=== PATIENT | female | born 1960 | race Caucasian/White ===

== ENCOUNTER → 2020-08-15 07:33 | Outpatient (CLI) | payer OTHER, SELFPAY ==
[2020-08-15] MEDS: COVID-19 VACC #1, MRNA(MOD) 100 MCG/0.5 ML VIAL IM (07:42)
== END ==
PROVIDERS: Visit Provider Internal Medicine
DX: Z23 Encounter for immunization (principal)
CPT/HCPCS: 0011A; 91301

== ENCOUNTER → 2020-09-12 07:32 | Outpatient (CLI) | payer OTHER, SELFPAY ==
[2020-09-12] MEDS: COVID-19 VACC #2, MRNA(MOD) 100 MCG/0.5 ML VIAL IM (07:40)
== END ==
PROVIDERS: Visit Provider Internal Medicine
DX: Z23 Encounter for immunization (principal)
CPT/HCPCS: 0012A; 91301

== ENCOUNTER → 2021-01-02 14:30 | Outpatient (CLI) | payer OTHER, SELFPAY ==
--- NOTE | 2021-01-02 14:32 | DI.RAD.S_ITS ---
PROCEDURE: XR SHOULDER RT MIN 2V INDICATIONS: shoulder pain TECHNIQUE: 3 views of the shoulder were acquired. COMPARISON: None. FINDINGS: Bones: No fractures or dislocations. Moderate acromioclavicular joint and glenohumeral joint osteoarthritic changes are seen. No suspicious bony lesions. Visualized ribs appear intact. Soft tissues: No suspicious soft tissue calcifications. IMPRESSION: Moderate right shoulder joint osteoarthritis. No fracture or dislocation. No gross soft tissue abnormality. Dictated by: Wally Simons M.D. on 01/02/2021 at 15:53 Approved by: Wally Simons M.D. on 01/02/2021 at 15:54
== END ==
PROVIDERS: PCP Registered Nurse; Referring Provider Registered Nurse; Visit Provider Registered Nurse
DX: M25.511 Pain in right shoulder (principal); M19.011 Primary osteoarthritis, right shoulder
CPT/HCPCS: 73030

== ENCOUNTER → 2021-01-22 13:23 | Outpatient (CLI) | payer OTHER, SELFPAY ==
--- NOTE | 2021-01-22 13:25 | DI.MG.S_ITS ---
BILATERAL DIGITAL SCREENING MAMMOGRAM 3D/2D WITH CAD: 01/22/2021 CLINICAL: Routine screening. Comparison is made to exams dated: 06/17/2017 mammogram, 04/18/2019 mammogram, and 07/15/2016 mammogram - outside facility. The tissue of both breasts is heterogeneously dense. This may lower the sensitivity of mammography. Current study was also evaluated with a Computer Aided Detection (CAD) system. No significant masses, calcifications, or other findings are seen in either breast. There has been no significant interval change. IMPRESSION: NEGATIVE There is no mammographic evidence of malignancy. A 1 year screening mammogram is recommended. This exam was interpreted at Station ID: [id number]. NOTE: For mammograms, a report in lay terms will be sent to the patient. Approximately 15% of breast malignancies will not be visualized mammographically. In the management of a palpable breast mass, a negative mammogram must not discourage biopsy of a clinically suspicious lesion. Electronically Signed By: Brad don/pat:01/22/2021 14:12:13 letter sent: Normal Exam ACR BI-RADS Category 1: Negative 3341F
== END ==
PROVIDERS: PCP Registered Nurse; Referring Provider Registered Nurse; Visit Provider Registered Nurse
DX: Z12.31 Encounter for screening mammogram for malignant neoplasm of breast (principal)
CPT/HCPCS: 77063; 77067

== ENCOUNTER → 2021-02-10 08:23 | Outpatient (CLI) | payer OTHER, SELFPAY ==
[2021-02-10 09:14] LABS: COVID19 -Nasal RAPID Negative (Negative)
== END ==
PROVIDERS: PCP Registered Nurse; Visit Provider Physician Assistant
DX: Z20.822 Contact with and (suspected) exposure to COVID-19 (principal); R05 Cough; R09.81 Nasal congestion; R51.9 Headache, unspecified
CPT/HCPCS: 87635

== ENCOUNTER → 2021-04-17 07:58 | Outpatient (CLI) | payer OTHER, SELFPAY ==
[2021-04-17 08:37] LABS: Add Manual Diff / Slide Review NO; Basophils Absolute Auto 0 /uL (0-100); Basophils Percent Auto 0.7 % (0-2); Eosinophils Absolute Auto 100 /uL (0-450); Eosinophils Percent Auto 1.3 % (2-4); Hematocrit 42.2 % (36-46); Hemoglobin 14.2 g/dL (12.0-16.0); Lymphocytes Absolute Auto 1200 /uL (1100-4500); Lymphocytes Percent Auto 24.4 % (25-40); Mean Corpuscular HGB Conc 33.6 % (30-36); Mean Corpuscular Hemoglobin 30.1 PG (26-34); Mean Corpuscular Volume 89.5 fL (80-100); Monocytes Absolute Auto 400 /uL (0-900); Monocytes Percent Auto 7.4 % (3-14); Neutrophils Absolute Auto 3200 /uL (1500-7000); Neutrophils Percent Auto 66.2 % (50-75); Platelet Count 260 X10^3/uL (150-400); Red Blood Cell Count 4.72 X10^6/uL (4.0-5.2); Red Cell Distribution Width 12.8 % (11.6-14.8); White Blood Cell Count 4.9 X10^3/uL (4.5-11.0)
[2021-04-17 08:52] LABS: Alanine Aminotransferase 25 IU/L (<35); Albumin 4.5 g/dL (3.5-5.0); Albumin Globulin Ratio 1.7 (1.0-2.8); Alkaline Phosphatase 50 U/L (38-126); Aspartate Aminotransferase 28 IU/L (14-36); BUN Creatinine Ratio 18.3 (6-22); Bilirubin Total 0.6 mg/dL (0.2-1.3); Blood Urea Nitrogen 15 mg/dL (7-17); Calcium 9.8 mg/dL (8.4-10.2); Carbon Dioxide 32 mmol/L (22-32); Chloride 106 mmol/L (98-107); Cholesterol 193 mg/dL (140-199); Estimated Glomerular Filt Rate > 60.0 mL/min (>60); Globulin 2.7 g/dL (1.7-4.1); Glucose 96 mg/dL (80-110); HDL Cholesterol 68 mg/dL (40-60); HEMOLYSIS < 15 (0-50); LDL Cholesterol Calculated 115 mg/dL (<100); Potassium 4.8 mmol/L (3.4-5.1); Sodium 142 mmol/L (137-145); Total Protein 7.2 g/dL (6.3-8.2); Triglycerides 49 mg/dL (35-150)
[2021-04-17 09:52] LABS: TSH w/ Reflex to FT4 1.71 uIU/mL (0.47-4.68)
== END ==
PROVIDERS: PCP Registered Nurse; Referring Provider Registered Nurse; Visit Provider Registered Nurse
DX: Z00.00 Encounter for general adult medical examination without abnormal findings (principal); Z86.018 Personal history of other benign neoplasm; M25.519 Pain in unspecified shoulder
CPT/HCPCS: 36415; 80053; 80061; 84443; 85025

== ENCOUNTER → 2022-09-28 14:18 | Outpatient (CLI) | payer OTHER, SELFPAY ==
--- NOTE | 2022-09-28 14:19 | DI.MG.S_ITS ---
BILATERAL DIGITAL SCREENING MAMMOGRAM 3D/2D WITH CAD: 09/28/2022 CLINICAL: Routine screening. Comparison is made to exams dated: 01/22/2021 mammogram - [facility], 04/18/2019 mammogram, and 06/17/2017 mammogram - outside facility. Both breasts are heterogeneously dense, which may obscure small masses (category c / 51-75% glandular tissue). Current study was also evaluated with a Computer Aided Detection (CAD) system. No significant masses, calcifications, or other findings are seen in either breast. There has been no significant interval change. IMPRESSION: NEGATIVE There is no mammographic evidence of malignancy. A 1 year screening mammogram is recommended. Based on the Tyrer Cuzick model (a risk assessment model) the patient's lifetime risk is 9.2% and her 10 year risk is 4.1%. According to the ACR, ACS, and NCCN guidelines, an annual breast MRI exam along with mammogram is recommended if the patient's lifetime risk is 20% or greater. This exam was interpreted at Station ID: [id number]. NOTE: For mammograms, a report in lay terms will be sent to the patient. Approximately 15% of breast malignancies will not be visualized mammographically. In the management of a palpable breast mass, a negative mammogram must not discourage biopsy of a clinically suspicious lesion. Electronically Signed By: Katlin salcido/pat:09/28/2022 16:52:50 letter sent: Normal Exam ACR BI-RADS Category 1: Negative 3341F
== END ==
PROVIDERS: PCP Family Medicine; Referring Provider Family Medicine; Visit Provider Family Medicine
DX: Z12.31 Encounter for screening mammogram for malignant neoplasm of breast (principal)
CPT/HCPCS: 77063; 77067

== ENCOUNTER → 2022-12-23 13:19 | Outpatient (CLI) | payer OTHER, SELFPAY ==
[2022-12-23 14:23] LABS: Add Manual Diff / Slide Review NO; Basophils Absolute Auto 0 /uL (0-100); Basophils Percent Auto 0.4 % (0-2); Eosinophils Absolute Auto 0 /uL (0-450); Eosinophils Percent Auto 0.5 % (2-4); Hematocrit 41.7 % (36-46); Hemoglobin 14.2 g/dL (12.0-16.0); Lymphocytes Absolute Auto 1400 /uL (1100-4500); Lymphocytes Percent Auto 22.3 % (25-40); Mean Corpuscular Hemoglobin 30.3 PG (26-34); Mean Corpuscular Volume 88.9 fL (80-100); Monocytes Absolute Auto 400 /uL (0-900); Monocytes Percent Auto 6.9 % (3-14); Neutrophils Absolute Auto 4400 /uL (1500-7000); Neutrophils Percent Auto 69.9 % (50-75); Platelet Count 219 X10^3/uL (150-400); Red Blood Cell Count 4.69 X10^6/uL (4.0-5.2); White Blood Cell Count 6.3 X10^3/uL (4.5-11.0)
[2022-12-23 14:45] LABS: Alanine Aminotransferase 28 IU/L (<35); Albumin 4.3 g/dL (3.5-5.0); Albumin Globulin Ratio 1.4 (1.0-2.8); Alkaline Phosphatase 51 U/L (38-126); Aspartate Aminotransferase 35 IU/L (14-36); BUN Creatinine Ratio 19.7 (6-22); Blood Urea Nitrogen 13 mg/dL (7-17); Calcium 9.1 mg/dL (8.4-10.2); Carbon Dioxide 25 mmol/L (22-32); Chloride 102 mmol/L (98-107); Cholesterol 195 mg/dL (140-199); Estimated Glomerular Filt Rate > 60 mL/min (>60); Globulin 3.1 g/dL (1.7-4.1); Glucose 76 mg/dL (80-110); HDL Cholesterol 71 mg/dL (40-60); LDL Cholesterol Calculated 115 mg/dL (<100); Potassium 3.9 mmol/L (3.4-5.1); Sodium 135 mmol/L (137-145); Total Protein 7.4 g/dL (6.3-8.2); Triglycerides 46 mg/dL (35-150)
[2022-12-23 14:50] LABS: HEMOLYSIS 56 (0-50)
[2022-12-23 15:15] LABS: TSH w/ Reflex to FT4 1.11 uIU/mL (0.47-4.68)
== END ==
PROVIDERS: PCP Family Medicine; Referring Provider Family Medicine; Visit Provider Family Medicine
DX: E78.2 Mixed hyperlipidemia (principal); G89.29 Other chronic pain; M25.511 Pain in right shoulder; R03.0 Elevated blood-pressure reading, without diagnosis of hypertension
CPT/HCPCS: 36415; 80053; 80061; 84443; 85025

== ENCOUNTER 2023-04-20 08:15 | Outpatient (RCR) | payer OTHER, SELFPAY ==
--- NOTE | 2023-01-19 13:57 | PT.OIE ---
Current Diagnoses Other chronic pain (01/19/23) Pain in right shoulder (01/19/23) Past Medical History (Last Reviewed 02/10/21 @ 10:02 by Amalia Mccoy PA-C) Adult general medical exam Cervical cancer screening Fibroids Screening for breast cancer Shoulder pain Past Surgical History (Last Reviewed 02/10/21 @ 10:02 by Amalia Mccoy PA-C) Anesthesia History of myomectomy Visit Care Team Role Provider Type Sumanth Ryan MD Attending Provider Physician Family Provider Primary Care Provider Referring Provider Specialty: Family Practice Address: [address] [place] [address] Email: [email or web address] Physical Therapy Initial Evaluation PT-OP-A Visit Information Start: 01/19/23 10:48 Freq: Status: Active Protocol: Document 01/19/23 10:53 AB (Rec: 01/19/23 13:56 AB [id number]) Out-Patient Physical Therapy Visit Information Visit Information Visit Type Initial Evaluation Visit Start Time 11:00 Visit Stop Time 11:55 Total Visit Minutes 55 Visit Number 1 Number of VENDING MACHINE REPAIRER Visits 0 Evaluation Information Evaluation Date 01/19/23 PT-OP-B Current Condition Start: 01/19/23 10:48 Freq: Status: Active Protocol: Document 01/19/23 10:53 AB (Rec: 01/19/23 13:56 AB [id number]) Current Condition History of Current Condition Onset Date 2020 History of Current Condition The pt reports that in 2020 she had an accident off a ski lift which cause her to fall directly onto her shoulder. Since then she has had mobility deficits and pain, which is constant (4-5/10), but her pain increases with reaching up and behind her back (8/10). She was unable to seek treatment consistently due to personal reasons. She is currently seeking a second opinion and different approach to what her chiropractor took to see if she can make greater gains and relief. The pt also comments she has left lateral elbow pain/tenderness when she puts lotion on that arm and when she is doing things like weeding Prior Treatments and Tests Sports chiropractor for 6 months- some improvement noted Xray in 2020 revealed mod OA in right shoulder Treatment Goals Patient/Caregiver Goals To return to her active lifestyle including yoga and skiing. Current Functional Impairments (Reported) Functional Limitations- Work/School Retired Functional Limitations- Recreation/ Unable to participate in Hobbies recreational activities due to pain PT-OP-C Subjective Start: 01/19/23 10:48 Freq: Status: Active Protocol: Document 01/19/23 10:53 AB (Rec: 01/19/23 13:56 AB [id number]) OP-PT Subjective Patient Comments Patient Comments See hx of current condition Patient Questionnaires Quick Dash- Upper Extremity Quick Dash UE Score 22.72% Quick Dash UE Impairment 20 to 39% Impaired (Score 20- 39) PT-OP-K Range of Motion Start: 01/19/23 10:48 Freq: Status: Active Protocol: Document 01/19/23 10:53 AB (Rec: 01/19/23 13:56 AB [id number]) Shoulder Goniometric Range of Motion Shoulder Right Active Testing Position Sitting Flexion 105 Abduction 94 External Rotation at 0 degrees Abduction 30 Internal Rotation Behind Back (text) L4 Comments Functional ER C6 Pain with all motions Left Active Shoulder ROM WFL Yes Testing Position Sitting Flexion 149 Abduction 149 External Rotation at 0 degrees Abduction 55 Internal Rotation Behind Back (text) T10 Comments Functional ER: T3 PT-OP-M Strength Start: 01/19/23 10:48 Freq: Status: Active Protocol: Document 01/19/23 10:53 AB (Rec: 01/19/23 13:56 AB [id number]) Shoulder Strength Shoulder Manual Muscle Testing Right Flexion 5 Normal Extension 5 Normal Abduction (C5) 4+ Good+ External Rotation 4 Good Internal Rotation 4 Good Comments 8/10 pain with flexion Left Flexion 5 Normal Extension 5 Normal Abduction (C5) 4+ Good+ External Rotation 4 Good Internal Rotation 4 Good Elbow/Forearm Strength Elbow and Forearm Manual Muscle Testing Right Flexion (C6) 5 Normal Extension (C7) 5 Normal Left Flexion (C6) 5 Normal Extension (C7) 5 Normal Pronation 5 Normal Supination 5 Normal Comments Denies pain PT-OP-Q Treatments Start: 01/19/23 10:48 Freq: Status: Active Protocol: Document 01/19/23 10:53 AB (Rec: 01/19/23 13:56 AB [id number]) Therapeutic Exercises Sitting Exercises Shldr flex AAROM Side bilateral Equipment Used green uzbek ball Reps/Minutes 2x10 sec hold Standing Exercises IR strap stretch Side right Reps/Minutes 2x10 sec hold Shldr ER AAROM Side right Equipment Used dowel Reps/Minutes [id number] hold Shldr ABD AAROM Side right Equipment Used uzbek ball, low table Reps/Minutes 2x10 sec hold PT-OP-T Assessment and Plan Start: 01/19/23 10:48 Freq: Status: Active Protocol: Document 01/19/23 10:53 AB (Rec: 01/19/23 13:56 AB [id number]) Physical Therapy Assessment Rehab Potential Rehabilitation Potential Good Evaluation Complexity Number of Personal Factors/Comorbidities 1-2 Number of Body Systems Impaired 1-2 Clinical Presentation at Evaluation Stable Impairments Impairments Functional Activities, Functional Mobility,Pain,ROM, Soft Tissue Mobility,Strength Goals Seven Impairment Patient questionnaire Short Term Goal (STG) Pt's QuickDASH score to improve to 12% or better to show improving subjective report of symptoms for an improved QOL. STG Duration 4 Custodial Goal (LTG) Pt's QuickDASH score to improve to 2% or better to show improving subjective report of symptoms for an improved QOL. LTG Duration 8 Six Impairment Strength Short Term Goal (STG) Pt's gross UE MMT to improve to 4+/5 or better to show improving strength to improve ability to perform ADLs and IADLs. STG Duration 4 Mannequin Refinisher Goal (LTG) Pt's gross UE MMT to improve to 5/5 or better to show improving strength to improve ability to perform functional activities and begin return to recreational activities. LTG Duration 8 Five Impairment Right shoulder AROM deficits Short Term Goal (STG) Pt's right shoulder functional IR AROM to improve to L1 or better to show improving ROM to increase ability to perform ADLs and IADLs. STG Duration 4 Mannequin Refinisher Goal (LTG) Pt's right shoulder functional IR AROM to improve to T10 or better to show improving ROM to increase ability to perform ADLs and IADLs. LTG Duration 8 Four Impairment Right shoulder AROM deficits Short Term Goal (STG) Pt's right shoulder functional ER AROM to improve to T1 or better to show improving ROM to increase ability to perform ADLs and IADLs. STG Duration 4 Mannequin Refinisher Goal (LTG) Pt's right shoulder functional ER AROM to improve to T3 or better to show improving ROM to increase ability to perform ADLs and IADLs. LTG Duration 8 Three Impairment Right shoulder AROM deficits Short Term Goal (STG) Pt's right shoulder ER AROM to improve to 40 degrees or better to show improving ROM to increase ability to perform ADLs and IADLs. STG Duration 4 Custodial Goal (LTG) Pt's right shoulder ER AROM to improve to 50 degrees or better to show improving ROM to increase ability to perform ADLs and IADLs. LTG Duration 8 Two Impairment Right shoulder AROM deficits Short Term Goal (STG) Pt's right shoulder ABD AROM to improve to 120 degrees or better to show improving ROM to increase ability to perform ADLs and IADLs. STG Duration 4 Mannequin Refinisher Goal (LTG) Pt's right shoulder ABD AROM to improve to 150 degrees or better to show improving ROM to increase ability to perform ADLs and IADLs. LTG Duration 8 One Impairment Right shoulder AROM deficits Short Term Goal (STG) Pt's right shoulder flexion AROM to improve to 120 degrees or better to show improving ROM to increase ability to perform ADLs and IADLs. STG Duration 4 Custodial Goal (LTG) Pt's right shoulder flexion AROM to improve to 150 degrees or better to show improving ROM to increase ability to perform ADLs and IADLs. LTG Duration 8 Assessment Summary Assessment Vandana iLnd is a 62 year old female patient presenting to outpatient PT clinic with complaints of chronic right shoulder pain, which began in 2020 after a ski lift fall. Today's PT evaluation revealed significant right shoulder AROM deficits, but mild strength deficits. Pain was reproduced with AROM testing, but not with MMT. ROM improved with PROM, but continues to be painful. Based on these findings, the pt would benefit from a trial of skilled PT to improve her deficits in order to help her return to her PLOF. If there is no improvement in her symptoms, the pt may benefit from a referral to an orthopedic surgeon. Her rehab potential is good based on her her active lifestyle, age, and motivation to participate in therapy. Physical Therapy Plan Frequency and Duration Frequency of Treatment 2x/Week Duration of treatment (weeks) 8 Plan of Care Start Date 01/19/23 Plan of Care End Date 03/16/23 Therapeutic Interventions Therapeutic Interventions Home Exercise Program,Joint Mobilizations,Manual Therapy, Neuromuscular Re-education, Patient/Caregiver Education, Self-Care/Home Management,Soft Tissue Mobilization,Taping, Therapeutic Activities, Therapeutic Exercises Modalities Cold Pack/Ice Massage,Electric Stimulation,Hot Packs Next Visit Focus/Plan Next Note Type Treatment Note Next Visit Plan Review HEP. Add RUE mobility exercises, low level periscpaular strengthening exercises.
--- NOTE | 2023-01-19 13:57 | PT.OPPOC ---
Physical, Occupational & Speech Therapy At [facility] Current Diagnoses Other chronic pain (01/19/23) Pain in right shoulder (01/19/23) Visit Care Team Role Provider Type Sumanth Ryan MD Attending Provider Physician Family Provider Primary Care Provider Referring Provider Specialty: Family Practice Address: [address] [place] [address] Email: [email or web address] Plan Of Care PT-OP-T Assessment and Plan Start: 01/19/23 10:48 Freq: Status: Active Protocol: Document 01/19/23 10:53 AB (Rec: 01/19/23 13:56 AB [id number]) Physical Therapy Assessment Rehab Potential Rehabilitation Potential Good Evaluation Complexity Number of Personal Factors/Comorbidities 1-2 Number of Body Systems Impaired 1-2 Clinical Presentation at Evaluation Stable Impairments Impairments Functional Activities, Functional Mobility,Pain,ROM, Soft Tissue Mobility,Strength Goals Seven Impairment Patient questionnaire Short Term Goal (STG) Pt's QuickDASH score to improve to 12% or better to show improving subjective report of symptoms for an improved QOL. STG Duration 4 Public Health Director Goal (LTG) Pt's QuickDASH score to improve to 2% or better to show improving subjective report of symptoms for an improved QOL. LTG Duration 8 Six Impairment Strength Short Term Goal (STG) Pt's gross UE MMT to improve to 4+/5 or better to show improving strength to improve ability to perform ADLs and IADLs. STG Duration 4 [facility] Goal (LTG) Pt's gross UE MMT to improve to 5/5 or better to show improving strength to improve ability to perform functional activities and begin return to recreational activities. LTG Duration 8 Five Impairment Right shoulder AROM deficits Short Term Goal (STG) Pt's right shoulder functional IR AROM to improve to L1 or better to show improving ROM to increase ability to perform ADLs and IADLs. STG Duration 4 Public Health Director Goal (LTG) Pt's right shoulder functional IR AROM to improve to T10 or better to show improving ROM to increase ability to perform ADLs and IADLs. LTG Duration 8 Four Impairment Right shoulder AROM deficits Short Term Goal (STG) Pt's right shoulder functional ER AROM to improve to T1 or better to show improving ROM to increase ability to perform ADLs and IADLs. STG Duration 4 [facility] Goal (LTG) Pt's right shoulder functional ER AROM to improve to T3 or better to show improving ROM to increase ability to perform ADLs and IADLs. LTG Duration 8 Three Impairment Right shoulder AROM deficits Short Term Goal (STG) Pt's right shoulder ER AROM to improve to 40 degrees or better to show improving ROM to increase ability to perform ADLs and IADLs. STG Duration 4 Public Health Director Goal (LTG) Pt's right shoulder ER AROM to improve to 50 degrees or better to show improving ROM to increase ability to perform ADLs and IADLs. LTG Duration 8 Two Impairment Right shoulder AROM deficits Short Term Goal (STG) Pt's right shoulder ABD AROM to improve to 120 degrees or better to show improving ROM to increase ability to perform ADLs and IADLs. STG Duration 4 [facility] Goal (LTG) Pt's right shoulder ABD AROM to improve to 150 degrees or better to show improving ROM to increase ability to perform ADLs and IADLs. LTG Duration 8 One Impairment Right shoulder AROM deficits Short Term Goal (STG) Pt's right shoulder flexion AROM to improve to 120 degrees or better to show improving ROM to increase ability to perform ADLs and IADLs. STG Duration 4 [facility] Goal (LTG) Pt's right shoulder flexion AROM to improve to 150 degrees or better to show improving ROM to increase ability to perform ADLs and IADLs. LTG Duration 8 Assessment Summary Assessment Vandana Lind is a 62 year old female patient presenting to outpatient PT clinic with complaints of chronic right shoulder pain, which began in 2020 after a ski lift fall. Today's PT evaluation revealed significant right shoulder AROM deficits, but mild strength deficits. Pain was reproduced with AROM testing, but not with MMT. ROM improved with PROM, but continues to be painful. Based on these findings, the pt would benefit from a trial of skilled PT to improve her deficits in order to help her return to her PLOF. If there is no improvement in her symptoms, the pt may benefit from a referral to an orthopedic surgeon. Her rehab potential is good based on her her active lifestyle, age, and motivation to participate in therapy. Physical Therapy Plan Frequency and Duration Frequency of Treatment 2x/Week Duration of treatment (weeks) 8 Plan of Care Start Date 01/19/23 Plan of Care End Date 03/16/23 Therapeutic Interventions Therapeutic Interventions Home Exercise Program,Joint Mobilizations,Manual Therapy, Neuromuscular Re-education, Patient/Caregiver Education, Self-Care/Home Management,Soft Tissue Mobilization,Taping, Therapeutic Activities, Therapeutic Exercises Modalities Cold Pack/Ice Massage,Electric Stimulation,Hot Packs Next Visit Focus/Plan Next Note Type Treatment Note Next Visit Plan Review HEP. Add RUE mobility exercises, low level periscpaular strengthening exercises. Plan of Care Dates Plan of Care Start Date 01/19/23 Plan of Care End Date 03/16/23 Electronically Signed by: Raji Garcia, PT 01/19/23 [id number] If you are in agreement with this Plan of Care, please return a signed and dated copy. I have reviewed this Plan of Care and certify that the skilled therapy services above are required to meet the patient?s needs. Physician Signature Date Printed Name and Credentials Clinical Instructor Signature Printed Name and Credentials
--- NOTE | 2023-01-24 11:42 | PT.OTN ---
Current Diagnoses Other chronic pain (01/24/23) Pain in right shoulder (01/24/23) Physical Therapy Treatment Note PT-OP-A Visit Information Start: 01/19/23 10:48 Freq: Status: Active Protocol: Document 01/24/23 10:04 AB (Rec: 01/24/23 11:41 AB [id number]) Out-Patient Physical Therapy Visit Information Visit Information Visit Type Treatment Note Visit Start Time 10:00 Visit Stop Time 10:45 Total Visit Minutes 45 Visit Number 2 Number of PROJECT MGR Visits 0 PT-OP-B Current Condition Start: 01/19/23 10:48 Freq: Status: Active Protocol: Document 01/19/23 10:53 AB (Rec: 01/19/23 13:56 AB [id number]) Current Condition History of Current Condition Onset Date 2020 History of Current Condition The pt reports that in 2020 she had an accident off a ski lift which cause her to fall directly onto her shoulder. Since then she has had mobility deficits and pain, which is constant (4-5/10), but her pain increases with reaching up and behind her back (8/10). She was unable to seek treatment consistently due to personal reasons. She is currently seeking a second opinion and different approach to what her chiropractor took to see if she can make greater gains and relief. The pt also comments she has left lateral elbow pain/tenderness when she puts lotion on that arm and when she is doing things like weeding Prior Treatments and Tests Sports chiropractor for 6 months- some improvement noted Xray in 2020 revealed mod OA in right shoulder Treatment Goals Patient/Caregiver Goals To return to her active lifestyle including yoga and skiing. Current Functional Impairments (Reported) Functional Limitations- Work/School Retired Functional Limitations- Recreation/ Unable to participate in Hobbies recreational activities due to pain PT-OP-C Subjective Start: 01/19/23 10:48 Freq: Status: Active Protocol: Document 01/24/23 10:04 AB (Rec: 01/24/23 11:41 AB [id number]) OP-PT Subjective Patient Comments Patient Comments The pt reports no significant change in her symptoms, and she has been doing her HEP without problems. PT-OP-K Range of Motion Start: 01/19/23 10:48 Freq: Status: Active Protocol: Document 01/19/23 10:53 AB (Rec: 01/19/23 13:56 AB [id number]) Shoulder Goniometric Range of Motion Shoulder Right Active Testing Position Sitting Flexion 105 Abduction 94 External Rotation at 0 degrees Abduction 30 Internal Rotation Behind Back (text) L4 Comments Functional ER C6 Pain with all motions Left Active Shoulder ROM WFL Yes Testing Position Sitting Flexion 149 Abduction 149 External Rotation at 0 degrees Abduction 55 Internal Rotation Behind Back (text) T10 Comments Functional ER: T3 PT-OP-M Strength Start: 01/19/23 10:48 Freq: Status: Active Protocol: Document 01/19/23 10:53 AB (Rec: 01/19/23 13:56 AB [id number]) Shoulder Strength Shoulder Manual Muscle Testing Right Flexion 5 Normal Extension 5 Normal Abduction (C5) 4+ Good+ External Rotation 4 Good Internal Rotation 4 Good Comments 8/10 pain with flexion Left Flexion 5 Normal Extension 5 Normal Abduction (C5) 4+ Good+ External Rotation 4 Good Internal Rotation 4 Good Elbow/Forearm Strength Elbow and Forearm Manual Muscle Testing Right Flexion (C6) 5 Normal Extension (C7) 5 Normal Left Flexion (C6) 5 Normal Extension (C7) 5 Normal Pronation 5 Normal Supination 5 Normal Comments Denies pain PT-OP-Q Treatments Start: 01/19/23 10:48 Freq: Status: Active Protocol: Document 01/24/23 10:04 AB (Rec: 01/24/23 11:41 AB [id number]) Cardio Equipment Upper Body Ergometer (UBE) Duration (Minutes) 5 Height lowest height Other 2.5 min fwd, 2.5 min bwd Gym Equipment Cable Column (Body Solid) Cable Rows Details seated cable rows (to mimic rowing machine) Resistance 2 plates Reps/Time 2x10 Therapeutic Exercises Sitting Exercises Pulleys Sitting Exercise Name Shoulder flex and ABD AAROM Side right Equipment Used Pulleys Reps/Minutes x 2 min ea Shldr flex AAROM Side bilateral Equipment Used green japanese ball Reps/Minutes 10x10 sec hold Standing Exercises Pendulums Standing Exercise Name lateral, fwd/bwd, CW/CCW Side right Equipment Used 3# DB (to provide more distraction) Reps/Minutes x1 min ea TB shldr ER and IR Standing Exercise Name TB ER and IR walkouts at 0D of ABD Side right Resistance peach TB Reps/Minutes 1x10 ea IR strap stretch Side right Reps/Minutes 10x10 sec hold Shldr ER AAROM Side right Equipment Used dowel Reps/Minutes [id number] hold Shldr ABD AAROM Side right Equipment Used japanese ball and low table; dowel Reps/Minutes 2x10 with 10 sec hold ea Comments 1st set with ball, 2nd set with dowel PT-OP-T Assessment and Plan Start: 01/19/23 10:48 Freq: Status: Active Protocol: Document 01/24/23 10:04 AB (Rec: 01/24/23 11:41 AB [id number]) Physical Therapy Assessment Goals Seven Impairment Patient questionnaire Short Term Goal (STG) Pt's QuickDASH score to improve to 12% or better to show improving subjective report of symptoms for an improved QOL. STG Duration 4 Crm Coordinator Goal (LTG) Pt's QuickDASH score to improve to 2% or better to show improving subjective report of symptoms for an improved QOL. LTG Duration 8 Six Impairment Strength Short Term Goal (STG) Pt's gross UE MMT to improve to 4+/5 or better to show improving strength to improve ability to perform ADLs and IADLs. STG Duration 4 Crm Coordinator Goal (LTG) Pt's gross UE MMT to improve to 5/5 or better to show improving strength to improve ability to perform functional activities and begin return to recreational activities. LTG Duration 8 Five Impairment Right shoulder AROM deficits Short Term Goal (STG) Pt's right shoulder functional IR AROM to improve to L1 or better to show improving ROM to increase ability to perform ADLs and IADLs. STG Duration 4 Senior Living Goal (LTG) Pt's right shoulder functional IR AROM to improve to T10 or better to show improving ROM to increase ability to perform ADLs and IADLs. LTG Duration 8 Four Impairment Right shoulder AROM deficits Short Term Goal (STG) Pt's right shoulder functional ER AROM to improve to T1 or better to show improving ROM to increase ability to perform ADLs and IADLs. STG Duration 4 Senior Living Goal (LTG) Pt's right shoulder functional ER AROM to improve to T3 or better to show improving ROM to increase ability to perform ADLs and IADLs. LTG Duration 8 Three Impairment Right shoulder AROM deficits Short Term Goal (STG) Pt's right shoulder ER AROM to improve to 40 degrees or better to show improving ROM to increase ability to perform ADLs and IADLs. STG Duration 4 Crm Coordinator Goal (LTG) Pt's right shoulder ER AROM to improve to 50 degrees or better to show improving ROM to increase ability to perform ADLs and IADLs. LTG Duration 8 Two Impairment Right shoulder AROM deficits Short Term Goal (STG) Pt's right shoulder ABD AROM to improve to 120 degrees or better to show improving ROM to increase ability to perform ADLs and IADLs. STG Duration 4 Crm Coordinator Goal (LTG) Pt's right shoulder ABD AROM to improve to 150 degrees or better to show improving ROM to increase ability to perform ADLs and IADLs. LTG Duration 8 One Impairment Right shoulder AROM deficits Short Term Goal (STG) Pt's right shoulder flexion AROM to improve to 120 degrees or better to show improving ROM to increase ability to perform ADLs and IADLs. STG Duration 4 Crm Coordinator Goal (LTG) Pt's right shoulder flexion AROM to improve to 150 degrees or better to show improving ROM to increase ability to perform ADLs and IADLs. LTG Duration 8 Assessment Summary Assessment The pt demonstrated good recall of HEP, as she was able to perform with good form. Due to the pt not feeling much of a stretch when performing shoulder ABD AAROM with japanese ball, this exercise was switched to be performed with a dowel instead. Additional UE mobility and low level RTC and periscapular strengthening was added, with focus on engaging the correct muscles to avoid UT compensation. Pendulums were also added to help improve pain symptoms. The pt may benefit from the addition of manual therapy PROM and joint mobilizations to improve ROM next visit. Physical Therapy Plan Frequency and Duration Frequency of Treatment 2x/Week Duration of treatment (weeks) 8 Plan of Care Start Date 01/19/23 Plan of Care End Date 03/16/23 Therapeutic Interventions Therapeutic Interventions Home Exercise Program,Joint Mobilizations,Manual Therapy, Neuromuscular Re-education, Patient/Caregiver Education, Self-Care/Home Management,Soft Tissue Mobilization,Taping, Therapeutic Activities, Therapeutic Exercises Modalities Cold Pack/Ice Massage,Electric Stimulation,Hot Packs Next Visit Focus/Plan Next Note Type Treatment Note Next Visit Plan Add RUE mobility exercises, low level periscpaular srengthening exercises. May be beneficial to add manual therapy focusing on improving PROM
--- NOTE | 2023-01-26 11:10 | PT.OTN ---
Current Diagnoses Other chronic pain (01/26/23) Pain in right shoulder (01/26/23) Physical Therapy Treatment Note PT-OP-A Visit Information Start: 01/19/23 10:48 Freq: Status: Active Protocol: Document 01/26/23 10:04 AB (Rec: 01/26/23 11:06 AB [id number]) Out-Patient Physical Therapy Visit Information Visit Information Visit Type Treatment Note Visit Start Time 10:00 Visit Stop Time 10:45 Total Visit Minutes 45 Visit Number 3 Number of RUSTIC TERRAZZO SETTER Visits 0 Evaluation Information Evaluation Date 01/19/23 PT-OP-B Current Condition Start: 01/19/23 10:48 Freq: Status: Active Protocol: Document 01/19/23 10:53 AB (Rec: 01/19/23 13:56 AB [id number]) Current Condition History of Current Condition Onset Date 2020 History of Current Condition The pt reports that in 2020 she had an accident off a ski lift which cause her to fall directly onto her shoulder. Since then she has had mobility deficits and pain, which is constant (4-5/10), but her pain increases with reaching up and behind her back (8/10). She was unable to seek treatment consistently due to personal reasons. She is currently seeking a second opinion and different approach to what her chiropractor took to see if she can make greater gains and relief. The pt also comments she has left lateral elbow pain/tenderness when she puts lotion on that arm and when she is doing things like weeding Prior Treatments and Tests Sports chiropractor for 6 months- some improvement noted Xray in 2020 revealed mod OA in right shoulder Treatment Goals Patient/Caregiver Goals To return to her active lifestyle including yoga and skiing. Current Functional Impairments (Reported) Functional Limitations- Work/School Retired Functional Limitations- Recreation/ Unable to participate in Hobbies recreational activities due to pain PT-OP-C Subjective Start: 01/19/23 10:48 Freq: Status: Active Protocol: Document 01/26/23 11:06 AB (Rec: 01/26/23 11:09 AB [id number]) OP-PT Subjective Patient Comments Patient Comments The pt reports she implemented pendulums at home with more weight because this exercise helps to improve her symptoms. She also reports she tried her rowing machine and it did not increase her symptoms. PT-OP-K Range of Motion Start: 01/19/23 10:48 Freq: Status: Active Protocol: Document 01/19/23 10:53 AB (Rec: 01/19/23 13:56 AB [id number]) Shoulder Goniometric Range of Motion Shoulder Right Active Testing Position Sitting Flexion 105 Abduction 94 External Rotation at 0 degrees Abduction 30 Internal Rotation Behind Back (text) L4 Comments Functional ER C6 Pain with all motions Left Active Shoulder ROM WFL Yes Testing Position Sitting Flexion 149 Abduction 149 External Rotation at 0 degrees Abduction 55 Internal Rotation Behind Back (text) T10 Comments Functional ER: T3 PT-OP-M Strength Start: 01/19/23 10:48 Freq: Status: Active Protocol: Document 01/19/23 10:53 AB (Rec: 01/19/23 13:56 AB [id number]) Shoulder Strength Shoulder Manual Muscle Testing Right Flexion 5 Normal Extension 5 Normal Abduction (C5) 4+ Good+ External Rotation 4 Good Internal Rotation 4 Good Comments 8/10 pain with flexion Left Flexion 5 Normal Extension 5 Normal Abduction (C5) 4+ Good+ External Rotation 4 Good Internal Rotation 4 Good Elbow/Forearm Strength Elbow and Forearm Manual Muscle Testing Right Flexion (C6) 5 Normal Extension (C7) 5 Normal Left Flexion (C6) 5 Normal Extension (C7) 5 Normal Pronation 5 Normal Supination 5 Normal Comments Denies pain PT-OP-Q Treatments Start: 01/19/23 10:48 Freq: Status: Active Protocol: Document 01/26/23 10:04 AB (Rec: 01/26/23 11:06 AB [id number]) Cardio Equipment Upper Body Ergometer (UBE) Duration (Minutes) 5 Height lowest height Other 2.5 min fwd, 2.5 min bwd Gym Equipment Cable Column (Body Solid) Cable Rows Details seated Resistance 3 plates Reps/Time 2x15 Therapeutic Exercises Prone Exercises Straight arm row Side right Resistance 4# Equipment Used DB Reps/Minutes 2x15 Comments focus on engaging mid trap and rhomboids Sidelying Exercises Open book Side right Reps/Minutes x10, 5 sec hold Sitting Exercises Prayer stretch Side bilateral Equipment Used tall plinth Reps/Minutes 3x30 sec Comments focus on thoracic extension and shoulder flexion Pulleys Sitting Exercise Name Shoulder flex and ABD AAROM Side right Equipment Used Pulleys Reps/Minutes x 2 min ea Shldr flex AAROM Sitting Exercise Name performed standing today Side bilateral Equipment Used bahamian ball Reps/Minutes 10x10 sec hold Standing Exercises Serratus wall press Side bilateral Equipment Used foam roller Reps/Minutes 2x10 TB shldr ER and IR Standing Exercise Name TB ER and IR walkouts at 0D of ABD Side right Resistance peach TB Reps/Minutes 1x10 ea PT-OP-T Assessment and Plan Start: 01/19/23 10:48 Freq: Status: Active Protocol: Document 01/26/23 10:04 AB (Rec: 01/26/23 11:06 AB [id number]) Physical Therapy Assessment Goals Seven Impairment Patient questionnaire Short Term Goal (STG) Pt's QuickDASH score to improve to 12% or better to show improving subjective report of symptoms for an improved QOL. STG Duration 4 Shelter Goal (LTG) Pt's QuickDASH score to improve to 2% or better to show improving subjective report of symptoms for an improved QOL. LTG Duration 8 Six Impairment Strength Short Term Goal (STG) Pt's gross UE MMT to improve to 4+/5 or better to show improving strength to improve ability to perform ADLs and IADLs. STG Duration 4 Anode Adjuster Goal (LTG) Pt's gross UE MMT to improve to 5/5 or better to show improving strength to improve ability to perform functional activities and begin return to recreational activities. LTG Duration 8 Five Impairment Right shoulder AROM deficits Short Term Goal (STG) Pt's right shoulder functional IR AROM to improve to L1 or better to show improving ROM to increase ability to perform ADLs and IADLs. STG Duration 4 Shelter Goal (LTG) Pt's right shoulder functional IR AROM to improve to T10 or better to show improving ROM to increase ability to perform ADLs and IADLs. LTG Duration 8 Four Impairment Right shoulder AROM deficits Short Term Goal (STG) Pt's right shoulder functional ER AROM to improve to T1 or better to show improving ROM to increase ability to perform ADLs and IADLs. STG Duration 4 Shelter Goal (LTG) Pt's right shoulder functional ER AROM to improve to T3 or better to show improving ROM to increase ability to perform ADLs and IADLs. LTG Duration 8 Three Impairment Right shoulder AROM deficits Short Term Goal (STG) Pt's right shoulder ER AROM to improve to 40 degrees or better to show improving ROM to increase ability to perform ADLs and IADLs. STG Duration 4 Shelter Goal (LTG) Pt's right shoulder ER AROM to improve to 50 degrees or better to show improving ROM to increase ability to perform ADLs and IADLs. LTG Duration 8 Two Impairment Right shoulder AROM deficits Short Term Goal (STG) Pt's right shoulder ABD AROM to improve to 120 degrees or better to show improving ROM to increase ability to perform ADLs and IADLs. STG Duration 4 Shelter Goal (LTG) Pt's right shoulder ABD AROM to improve to 150 degrees or better to show improving ROM to increase ability to perform ADLs and IADLs. LTG Duration 8 One Impairment Right shoulder AROM deficits Short Term Goal (STG) Pt's right shoulder flexion AROM to improve to 120 degrees or better to show improving ROM to increase ability to perform ADLs and IADLs. STG Duration 4 Anode Adjuster Goal (LTG) Pt's right shoulder flexion AROM to improve to 150 degrees or better to show improving ROM to increase ability to perform ADLs and IADLs. LTG Duration 8 Assessment Summary Assessment The pt was progressed by adding UE and thoracic spine mobility exercises to improve RUE ROM and biomechanics. Exercises to improve periscapular strength and endurance were also added due to impaired ability to engage these muscles causing compensation of engaging UT instead. The pt required tactile and verbal cueing to perform rows (seated and prone ) to engage MT and rhomboids. She was provided with an updated HEP to supplement therapeutic interventions. The pt continues to benefit from skilled PT at this time to improve her symptoms and return to her PLOF. Physical Therapy Plan Frequency and Duration Frequency of Treatment 2x/Week Duration of treatment (weeks) 8 Plan of Care Start Date 01/19/23 Plan of Care End Date 03/16/23 Therapeutic Interventions Therapeutic Interventions Home Exercise Program,Joint Mobilizations,Manual Therapy, Neuromuscular Re-education, Patient/Caregiver Education, Self-Care/Home Management,Soft Tissue Mobilization,Taping, Therapeutic Activities, Therapeutic Exercises Modalities Cold Pack/Ice Massage,Electric Stimulation,Hot Packs Next Visit Focus/Plan Next Note Type Treatment Note Next Visit Plan Review updated HEP. Add manual therapy (PROM) as indicated.
--- NOTE | 2023-02-02 09:15 | PT.OTN ---
Current Diagnoses Other chronic pain (02/02/23) Pain in right shoulder (02/02/23) Physical Therapy Treatment Note PT-OP-A Visit Information Start: 01/19/23 10:48 Freq: Status: Active Protocol: Document 02/02/23 08:15 SP (Rec: 02/02/23 09:39 SP [id number]) Out-Patient Physical Therapy Visit Information Visit Information Visit Type Treatment Note Visit Start Time 08:15 Visit Stop Time 09:15 Total Visit Minutes 60 Visit Number 4 Number of PHARMACEUTICAL SALES Visits 1 Evaluation Information Evaluation Date 01/19/23 PT-OP-B Current Condition Start: 01/19/23 10:48 Freq: Status: Active Protocol: Document 01/19/23 10:53 AB (Rec: 01/19/23 13:56 AB [id number]) Current Condition History of Current Condition Onset Date 2020 History of Current Condition The pt reports that in 2020 she had an accident off a ski lift which cause her to fall directly onto her shoulder. Since then she has had mobility deficits and pain, which is constant (4-5/10), but her pain increases with reaching up and behind her back (8/10). She was unable to seek treatment consistently due to personal reasons. She is currently seeking a second opinion and different approach to what her chiropractor took to see if she can make greater gains and relief. The pt also comments she has left lateral elbow pain/tenderness when she puts lotion on that arm and when she is doing things like weeding Prior Treatments and Tests Sports chiropractor for 6 months- some improvement noted Xray in 2020 revealed mod OA in right shoulder Treatment Goals Patient/Caregiver Goals To return to her active lifestyle including yoga and skiing. Current Functional Impairments (Reported) Functional Limitations- Work/School Retired Functional Limitations- Recreation/ Unable to participate in Hobbies recreational activities due to pain PT-OP-C Subjective Start: 01/19/23 10:48 Freq: Status: Active Protocol: Document 02/02/23 08:15 SP (Rec: 02/02/23 09:39 SP [id number]) OP-PT Subjective Patient Comments Patient Comments Pt was pretty sore at end of day last tx but did some more stretching when got home. She stated is strict compliance with HEP and please with gained mobility just in 1.5 weeks. PT-OP-K Range of Motion Start: 01/19/23 10:48 Freq: Status: Active Protocol: Document 01/19/23 10:53 AB (Rec: 01/19/23 13:56 AB [id number]) Shoulder Goniometric Range of Motion Shoulder Right Active Testing Position Sitting Flexion 105 Abduction 94 External Rotation at 0 degrees Abduction 30 Internal Rotation Behind Back (text) L4 Comments Functional ER C6 Pain with all motions Left Active Shoulder ROM WFL Yes Testing Position Sitting Flexion 149 Abduction 149 External Rotation at 0 degrees Abduction 55 Internal Rotation Behind Back (text) T10 Comments Functional ER: T3 PT-OP-M Strength Start: 01/19/23 10:48 Freq: Status: Active Protocol: Document 01/19/23 10:53 AB (Rec: 01/19/23 13:56 AB [id number]) Shoulder Strength Shoulder Manual Muscle Testing Right Flexion 5 Normal Extension 5 Normal Abduction (C5) 4+ Good+ External Rotation 4 Good Internal Rotation 4 Good Comments 8/10 pain with flexion Left Flexion 5 Normal Extension 5 Normal Abduction (C5) 4+ Good+ External Rotation 4 Good Internal Rotation 4 Good Elbow/Forearm Strength Elbow and Forearm Manual Muscle Testing Right Flexion (C6) 5 Normal Extension (C7) 5 Normal Left Flexion (C6) 5 Normal Extension (C7) 5 Normal Pronation 5 Normal Supination 5 Normal Comments Denies pain PT-OP-Q Treatments Start: 01/19/23 10:48 Freq: Status: Active Protocol: Document 02/02/23 08:15 SP (Rec: 02/02/23 09:39 SP [id number]) Cardio Equipment Upper Body Ergometer (UBE) Duration (Minutes) 4 RPM 60 Seat Position 8 Height lowest height 1.5 Other 2.5 min fwd/bwd, stopped 4 min 2* crunching in R shld Gym Equipment Cable Column (Body Solid) TRX decline push up Details pushup, serratus press Resistance 5 reps x2 Reps/Time cable full stack (plate 1 up high) TRX recline rows Resistance 5 reps x2 Reps/Time cable full stack (plate 1 up high) Pull Downs Details seated: over and underhand Resistance 3 plates Reps/Time x6 reps- less discomfort underhand limited end range stretch Cable Rows Details seated Resistance 3 plates Reps/Time 20 Therapeutic Exercises Prone Exercises push up Prone Exercise Name off knees (reviewed self ex) Resistance AROM long arm axis Reps/Minutes 3 reps x2 Comments trialed off ft challenge R shld, better off knees Sidelying Exercises Open book Sidelying Exercise Name HEP reviewed Side right Reps/Minutes x10, 5 sec hold Comments good form Sitting Exercises Shldr flex AAROM Sitting Exercise Name performed on knees today Side bilateral Resistance 55cm tball Reps/Minutes 5x10 sec hold Comments pre post manual- gained ROM Standing Exercises TB shldr ER and IR Standing Exercise Name TB ER and IR walkouts at 0D of ABD Side right Resistance peach TB (orange next) Reps/Minutes 1x10 ea Comments good form IR strap stretch Standing Exercise Name added to HEP Side right Equipment Used use opp UE, add towel later Reps/Minutes 5x10 sec hold Comments cued across back to opp side allow stretch, before elevate Shldr ER AAROM Standing Exercise Name HEP reviewe Side right Resistance back to wall Equipment Used dowel Reps/Minutes [id number] hold Shldr ABD AAROM Standing Exercise Name HEP reviewed Side right Resistance 1.dowel back to wall Equipment Used 2.tball on knees Reps/Minutes 5 reps with 10 sec hold ea Comments 1st set with ball, 2nd set with dowel Other Exercises self STMs Other Exercise Name UT, Teres, Serratus Ant, infrasp, Side right Equipment Used ball wall post scap/lat ribcage, theracane neck Comments rolling and MWM neck head nods /turns Manual Therapy Treatment Soft Tissue Mobilization R shld Body Location Teres, distal lat, subscap, infrasp, serratus ant, UT Mobilization Type Strumming,Sustained Pressure, Other Intensity/Depth Moderate Body Position Side/supine Comments manual w/ FM (AAROM): ABD, FF, ER with ed self ball wall and theracane Joint Mobilizations R humeroulnar jt Joint next tx R scapulothoracic Direction rotations, retract/depression Grade II Body Position side Comments manual and with FM: openbook, ABD AAROM R GH Jt Joint R Direction inferior, PA Grade II Body Position Supine Comments painfree PT-OP-T Assessment and Plan Start: 01/19/23 10:48 Freq: Status: Active Protocol: Document 02/02/23 08:15 SP (Rec: 02/02/23 09:39 SP [id number]) Physical Therapy Assessment Goals Seven Impairment Patient questionnaire Short Term Goal (STG) Pt's QuickDASH score to improve to 12% or better to show improving subjective report of symptoms for an improved QOL. STG Duration 4 Care Home Goal (LTG) Pt's QuickDASH score to improve to 2% or better to show improving subjective report of symptoms for an improved QOL. LTG Duration 8 Six Impairment Strength Short Term Goal (STG) Pt's gross UE MMT to improve to 4+/5 or better to show improving strength to improve ability to perform ADLs and IADLs. STG Duration 4 Cut Filer Goal (LTG) Pt's gross UE MMT to improve to 5/5 or better to show improving strength to improve ability to perform functional activities and begin return to recreational activities. LTG Duration 8 Five Impairment Right shoulder AROM deficits Short Term Goal (STG) Pt's right shoulder functional IR AROM to improve to L1 or better to show improving ROM to increase ability to perform ADLs and IADLs. STG Duration 4 Care Home Goal (LTG) Pt's right shoulder functional IR AROM to improve to T10 or better to show improving ROM to increase ability to perform ADLs and IADLs. LTG Duration 8 Four Impairment Right shoulder AROM deficits Short Term Goal (STG) Pt's right shoulder functional ER AROM to improve to T1 or better to show improving ROM to increase ability to perform ADLs and IADLs. STG Duration 4 Care Home Goal (LTG) Pt's right shoulder functional ER AROM to improve to T3 or better to show improving ROM to increase ability to perform ADLs and IADLs. LTG Duration 8 Three Impairment Right shoulder AROM deficits Short Term Goal (STG) Pt's right shoulder ER AROM to improve to 40 degrees or better to show improving ROM to increase ability to perform ADLs and IADLs. STG Duration 4 Care Home Goal (LTG) Pt's right shoulder ER AROM to improve to 50 degrees or better to show improving ROM to increase ability to perform ADLs and IADLs. LTG Duration 8 Two Impairment Right shoulder AROM deficits Short Term Goal (STG) Pt's right shoulder ABD AROM to improve to 120 degrees or better to show improving ROM to increase ability to perform ADLs and IADLs. STG Duration 4 Care Home Goal (LTG) Pt's right shoulder ABD AROM to improve to 150 degrees or better to show improving ROM to increase ability to perform ADLs and IADLs. LTG Duration 8 One Impairment Right shoulder AROM deficits Short Term Goal (STG) Pt's right shoulder flexion AROM to improve to 120 degrees or better to show improving ROM to increase ability to perform ADLs and IADLs. STG Duration 4 Cut Filer Goal (LTG) Pt's right shoulder flexion AROM to improve to 150 degrees or better to show improving ROM to increase ability to perform ADLs and IADLs. LTG Duration 8 Assessment Summary Assessment Pt responded well to manual and understanding use ball wall and theracane for self application at home with improved FF, ABD, IR ROM. Cues neutral spine and scapular positionining during ther ex. Progressed into modified push up and reclined rows with no pain and minimal UT recruitment. Pt reports limited R elbow mobility during end range able shld ex, would benefit from manual next tx. Physical Therapy Plan Frequency and Duration Frequency of Treatment 2x/Week Duration of treatment (weeks) 8 Plan of Care Start Date 01/19/23 Plan of Care End Date 03/16/23 Therapeutic Interventions Therapeutic Interventions Home Exercise Program,Joint Mobilizations,Manual Therapy, Neuromuscular Re-education, Patient/Caregiver Education, Self-Care/Home Management,Soft Tissue Mobilization,Taping, Therapeutic Activities, Therapeutic Exercises Modalities Cold Pack/Ice Massage,Electric Stimulation,Hot Packs Next Visit Focus/Plan Next Note Type Treatment Note Next Visit Plan Continue manual: post/sub scap , tricep, elbow mobs. PROM with emphasis improve IR, ER, ABD, FF POC: Review updated HEP.
--- NOTE | 2023-02-04 09:03 | PT.OTN ---
Current Diagnoses Other chronic pain (02/04/23) Pain in right shoulder (02/04/23) Physical Therapy Treatment Note PT-OP-A Visit Information Start: 01/19/23 10:48 Freq: Status: Active Protocol: Document 02/04/23 08:22 SP (Rec: 02/04/23 09:04 SP [id number]) Out-Patient Physical Therapy Visit Information Visit Information Visit Type Treatment Note Visit Start Time 08:22 Visit Stop Time 09:03 Total Visit Minutes 41 Visit Number 5 Number of FLIGHT TEST ENGINEER Visits 2 Evaluation Information Evaluation Date 01/19/23 PT-OP-B Current Condition Start: 01/19/23 10:48 Freq: Status: Active Protocol: Document 01/19/23 10:53 AB (Rec: 01/19/23 13:56 AB [id number]) Current Condition History of Current Condition Onset Date 2020 History of Current Condition The pt reports that in 2020 she had an accident off a ski lift which cause her to fall directly onto her shoulder. Since then she has had mobility deficits and pain, which is constant (4-5/10), but her pain increases with reaching up and behind her back (8/10). She was unable to seek treatment consistently due to personal reasons. She is currently seeking a second opinion and different approach to what her chiropractor took to see if she can make greater gains and relief. The pt also comments she has left lateral elbow pain/tenderness when she puts lotion on that arm and when she is doing things like weeding Prior Treatments and Tests Sports chiropractor for 6 months- some improvement noted Xray in 2020 revealed mod OA in right shoulder Treatment Goals Patient/Caregiver Goals To return to her active lifestyle including yoga and skiing. Current Functional Impairments (Reported) Functional Limitations- Work/School Retired Functional Limitations- Recreation/ Unable to participate in Hobbies recreational activities due to pain PT-OP-C Subjective Start: 01/19/23 10:48 Freq: Status: Active Protocol: Document 02/04/23 08:22 SP (Rec: 02/04/23 09:04 SP [id number]) OP-PT Subjective Patient Comments Patient Comments Pt reports tried self massage ball on wall with hard ball at home and was pretty sensitive but found benefits so ordered softer ball on wall. Compliant with HEP. Still most limited reaching over head and out to side but seeing improvement since doing IR stretch behind back, able reach behind back further. PT-OP-K Range of Motion Start: 01/19/23 10:48 Freq: Status: Active Protocol: Document 01/19/23 10:53 AB (Rec: 01/19/23 13:56 AB [id number]) Shoulder Goniometric Range of Motion Shoulder Right Active Testing Position Sitting Flexion 105 Abduction 94 External Rotation at 0 degrees Abduction 30 Internal Rotation Behind Back (text) L4 Comments Functional ER C6 Pain with all motions Left Active Shoulder ROM WFL Yes Testing Position Sitting Flexion 149 Abduction 149 External Rotation at 0 degrees Abduction 55 Internal Rotation Behind Back (text) T10 Comments Functional ER: T3 PT-OP-M Strength Start: 01/19/23 10:48 Freq: Status: Active Protocol: Document 01/19/23 10:53 AB (Rec: 01/19/23 13:56 AB [id number]) Shoulder Strength Shoulder Manual Muscle Testing Right Flexion 5 Normal Extension 5 Normal Abduction (C5) 4+ Good+ External Rotation 4 Good Internal Rotation 4 Good Comments 8/10 pain with flexion Left Flexion 5 Normal Extension 5 Normal Abduction (C5) 4+ Good+ External Rotation 4 Good Internal Rotation 4 Good Elbow/Forearm Strength Elbow and Forearm Manual Muscle Testing Right Flexion (C6) 5 Normal Extension (C7) 5 Normal Left Flexion (C6) 5 Normal Extension (C7) 5 Normal Pronation 5 Normal Supination 5 Normal Comments Denies pain PT-OP-Q Treatments Start: 01/19/23 10:48 Freq: Status: Active Protocol: Document 02/04/23 08:22 SP (Rec: 02/04/23 09:04 SP [id number]) Therapeutic Exercises Sidelying Exercises sleeper stretch Sidelying Exercise Name trialed and added to HEP if gentle stretch tolerant Side right Resistance AAROM therapist then ed self gentle meet tension and not force range Reps/Minutes 3 SH x3 Comments very limited range but good focused area that seem cause pain- side>stand Standing Exercises TB shldr ER and IR Standing Exercise Name TB ER and IR walkouts at 0D of ABD Side right Resistance peach TB (orange next) Reps/Minutes 1x10 ea Comments good form- ed IR strap stretch Standing Exercise Name reviewed HEP Side right Equipment Used use opp UE, add towel later Reps/Minutes 5x10 sec hold Comments cued across back to opp side allow stretch, improved range today Manual Therapy Treatment Soft Tissue Mobilization R elbow Body Location bicep, tricep, brachialis, brachioradialis Mobilization Type Myofascial Release,Strumming, Sustained Pressure,Other Intensity/Depth Moderate Body Position Hooklying Comments STMs, pin MWM forearm PROM pron/sup/flex/ext with good feedback that feels better in my elbow R shld Body Location Teres, distal lat, subscap, serratus ant, UT, tricep Mobilization Type Strumming,Sustained Pressure, Other Intensity/Depth Moderate Body Position Side/supine Comments manual w/ PROM FM FF & Scaption, gains in FF noted but not measured. Joint Mobilizations R humeroulnar jt Joint trialed Direction inferior and lateral glide w/ strap Grade II Body Position Supine Comments good feedback, gentle distraction in elbow/ little relief. R scapulothoracic Direction rotations, retract/depression Grade II Body Position L sidelyin Comments manual R GH Jt Joint R Direction inferior, PA Grade II Body Position Supine Comments manual gentle I-II PA and inferior glide with PROM FF, scaption, tolerated feedback stayed within painfree ROM. Manual Techniques PROM Type FF, ABD, ER Body Position Hooklying PT-OP-T Assessment and Plan Start: 01/19/23 10:48 Freq: Status: Active Protocol: Document 02/04/23 08:22 SP (Rec: 02/04/23 09:04 SP [id number]) Physical Therapy Assessment Goals Seven Impairment Patient questionnaire Short Term Goal (STG) Pt's QuickDASH score to improve to 12% or better to show improving subjective report of symptoms for an improved QOL. STG Duration 4 Hop Sorter Goal (LTG) Pt's QuickDASH score to improve to 2% or better to show improving subjective report of symptoms for an improved QOL. LTG Duration 8 Six Impairment Strength Short Term Goal (STG) Pt's gross UE MMT to improve to 4+/5 or better to show improving strength to improve ability to perform ADLs and IADLs. STG Duration 4 Hop Sorter Goal (LTG) Pt's gross UE MMT to improve to 5/5 or better to show improving strength to improve ability to perform functional activities and begin return to recreational activities. LTG Duration 8 Five Impairment Right shoulder AROM deficits Short Term Goal (STG) Pt's right shoulder functional IR AROM to improve to L1 or better to show improving ROM to increase ability to perform ADLs and IADLs. STG Duration 4 Group Home Goal (LTG) Pt's right shoulder functional IR AROM to improve to T10 or better to show improving ROM to increase ability to perform ADLs and IADLs. LTG Duration 8 Four Impairment Right shoulder AROM deficits Short Term Goal (STG) Pt's right shoulder functional ER AROM to improve to T1 or better to show improving ROM to increase ability to perform ADLs and IADLs. STG Duration 4 Hop Sorter Goal (LTG) Pt's right shoulder functional ER AROM to improve to T3 or better to show improving ROM to increase ability to perform ADLs and IADLs. LTG Duration 8 Three Impairment Right shoulder AROM deficits Short Term Goal (STG) Pt's right shoulder ER AROM to improve to 40 degrees or better to show improving ROM to increase ability to perform ADLs and IADLs. STG Duration 4 Group Home Goal (LTG) Pt's right shoulder ER AROM to improve to 50 degrees or better to show improving ROM to increase ability to perform ADLs and IADLs. LTG Duration 8 Two Impairment Right shoulder AROM deficits Short Term Goal (STG) Pt's right shoulder ABD AROM to improve to 120 degrees or better to show improving ROM to increase ability to perform ADLs and IADLs. STG Duration 4 Hop Sorter Goal (LTG) Pt's right shoulder ABD AROM to improve to 150 degrees or better to show improving ROM to increase ability to perform ADLs and IADLs. LTG Duration 8 One Impairment Right shoulder AROM deficits Short Term Goal (STG) Pt's right shoulder flexion AROM to improve to 120 degrees or better to show improving ROM to increase ability to perform ADLs and IADLs. STG Duration 4 Group Home Goal (LTG) Pt's right shoulder flexion AROM to improve to 150 degrees or better to show improving ROM to increase ability to perform ADLs and IADLs. LTG Duration 8 Assessment Summary Assessment Tx extra time spent on manual. Pt improved glenohumeral motion into FF, scaption during PROM post manual to sub /lateral scap, not measured. She reports decreased elbow tension post STM and MWM forearm/elbow musculature. Physical Therapy Plan Frequency and Duration Frequency of Treatment 2x/Week Duration of treatment (weeks) 8 Plan of Care Start Date 01/19/23 Plan of Care End Date 03/16/23 Therapeutic Interventions Therapeutic Interventions Home Exercise Program,Joint Mobilizations,Manual Therapy, Neuromuscular Re-education, Patient/Caregiver Education, Self-Care/Home Management,Soft Tissue Mobilization,Taping, Therapeutic Activities, Therapeutic Exercises Modalities Cold Pack/Ice Massage,Electric Stimulation,Hot Packs Next Visit Focus/Plan Next Note Type Treatment Note Next Visit Plan Continue manual: post/sub scap /elbow, elbow mobs as needed. PROM with emphasis improve IR, ER, ABD, FF POC: Review updated HEP. Add RUE mobility exercises, low level periscpaular srengthening exercises as tolerated. May be beneficial to add manual therapy focusing on improving PROM
--- NOTE | 2023-02-07 09:39 | PT.OTN ---
Current Diagnoses Other chronic pain (02/07/23) Pain in right shoulder (02/07/23) Physical Therapy Treatment Note PT-OP-A Visit Information Start: 01/19/23 10:48 Freq: Status: Active Protocol: Document 02/07/23 08:35 AB (Rec: 02/07/23 09:38 AB [id number]) Out-Patient Physical Therapy Visit Information Visit Information Visit Type Treatment Note Visit Start Time 08:31 Visit Stop Time 09:15 Total Visit Minutes 44 Visit Number 6 PT-OP-B Current Condition Start: 01/19/23 10:48 Freq: Status: Active Protocol: Document 01/19/23 10:53 AB (Rec: 01/19/23 13:56 AB [id number]) Current Condition History of Current Condition Onset Date 2020 History of Current Condition The pt reports that in 2020 she had an accident off a ski lift which cause her to fall directly onto her shoulder. Since then she has had mobility deficits and pain, which is constant (4-5/10), but her pain increases with reaching up and behind her back (8/10). She was unable to seek treatment consistently due to personal reasons. She is currently seeking a second opinion and different approach to what her chiropractor took to see if she can make greater gains and relief. The pt also comments she has left lateral elbow pain/tenderness when she puts lotion on that arm and when she is doing things like weeding Prior Treatments and Tests Sports chiropractor for 6 months- some improvement noted Xray in 2020 revealed mod OA in right shoulder Treatment Goals Patient/Caregiver Goals To return to her active lifestyle including yoga and skiing. Current Functional Impairments (Reported) Functional Limitations- Work/School Retired Functional Limitations- Recreation/ Unable to participate in Hobbies recreational activities due to pain PT-OP-C Subjective Start: 01/19/23 10:48 Freq: Status: Active Protocol: Document 02/07/23 08:35 AB (Rec: 02/07/23 09:38 AB [id number]) OP-PT Subjective Patient Comments Patient Comments The pt reports feeling like her pain is about the same, but states she is noticing improving ROM. PT-OP-K Range of Motion Start: 01/19/23 10:48 Freq: Status: Active Protocol: Document 01/19/23 10:53 AB (Rec: 01/19/23 13:56 AB [id number]) Shoulder Goniometric Range of Motion Shoulder Right Active Testing Position Sitting Flexion 105 Abduction 94 External Rotation at 0 degrees Abduction 30 Internal Rotation Behind Back (text) L4 Comments Functional ER C6 Pain with all motions Left Active Shoulder ROM WFL Yes Testing Position Sitting Flexion 149 Abduction 149 External Rotation at 0 degrees Abduction 55 Internal Rotation Behind Back (text) T10 Comments Functional ER: T3 PT-OP-M Strength Start: 01/19/23 10:48 Freq: Status: Active Protocol: Document 01/19/23 10:53 AB (Rec: 01/19/23 13:56 AB [id number]) Shoulder Strength Shoulder Manual Muscle Testing Right Flexion 5 Normal Extension 5 Normal Abduction (C5) 4+ Good+ External Rotation 4 Good Internal Rotation 4 Good Comments 8/10 pain with flexion Left Flexion 5 Normal Extension 5 Normal Abduction (C5) 4+ Good+ External Rotation 4 Good Internal Rotation 4 Good Elbow/Forearm Strength Elbow and Forearm Manual Muscle Testing Right Flexion (C6) 5 Normal Extension (C7) 5 Normal Left Flexion (C6) 5 Normal Extension (C7) 5 Normal Pronation 5 Normal Supination 5 Normal Comments Denies pain PT-OP-Q Treatments Start: 01/19/23 10:48 Freq: Status: Active Protocol: Document 02/07/23 08:35 AB (Rec: 02/07/23 09:38 AB [id number]) Cardio Equipment Upper Body Ergometer (UBE) Duration (Minutes) 4 RPM 60 Seat Position 8 Height lowest height 1.5 Other 2.5 min fwd/bwd, stopped 4 min 2* crunching in R shld Therapeutic Exercises Prone Exercises Straight arm row Side right Resistance 10# Equipment Used DB Reps/Minutes 2x15 Comments focus on engaging mid trap and rhomboids Sidelying Exercises sleeper stretch Side right Resistance AAROM therapist then ed self gentle meet tension and not force range Reps/Minutes 3 SH x10 Comments very limited range Standing Exercises Serratus wall press Side bilateral Equipment Used foam roller Reps/Minutes 2x10 Other Exercises 1/2 kneel Tspine rotation Other Exercise Name (progression of open books) Side bilateral Equipment Used blue bouncy ball Reps/Minutes 2x10 Manual Therapy Treatment Joint Mobilizations R GH Jt Joint R Direction inferior, PA Grade II Body Position Supine Comments manual gentle I-II PA and inferior glide with PROM FF, scaption, tolerated feedback stayed within painfree ROM. Manual Techniques PROM Type FF, ABD, ER Body Position Hooklying PT-OP-T Assessment and Plan Start: 01/19/23 10:48 Freq: Status: Active Protocol: Document 02/07/23 08:35 AB (Rec: 02/07/23 09:38 AB [id number]) Physical Therapy Assessment Goals Seven Impairment Patient questionnaire Short Term Goal (STG) Pt's QuickDASH score to improve to 12% or better to show improving subjective report of symptoms for an improved QOL. STG Duration 4 Seismology Teacher Goal (LTG) Pt's QuickDASH score to improve to 2% or better to show improving subjective report of symptoms for an improved QOL. LTG Duration 8 Six Impairment Strength Short Term Goal (STG) Pt's gross UE MMT to improve to 4+/5 or better to show improving strength to improve ability to perform ADLs and IADLs. STG Duration 4 Seismology Teacher Goal (LTG) Pt's gross UE MMT to improve to 5/5 or better to show improving strength to improve ability to perform functional activities and begin return to recreational activities. LTG Duration 8 Five Impairment Right shoulder AROM deficits Short Term Goal (STG) Pt's right shoulder functional IR AROM to improve to L1 or better to show improving ROM to increase ability to perform ADLs and IADLs. STG Duration 4 Seismology Teacher Goal (LTG) Pt's right shoulder functional IR AROM to improve to T10 or better to show improving ROM to increase ability to perform ADLs and IADLs. LTG Duration 8 Four Impairment Right shoulder AROM deficits Short Term Goal (STG) Pt's right shoulder functional ER AROM to improve to T1 or better to show improving ROM to increase ability to perform ADLs and IADLs. STG Duration 4 Penitentiary Goal (LTG) Pt's right shoulder functional ER AROM to improve to T3 or better to show improving ROM to increase ability to perform ADLs and IADLs. LTG Duration 8 Three Impairment Right shoulder AROM deficits Short Term Goal (STG) Pt's right shoulder ER AROM to improve to 40 degrees or better to show improving ROM to increase ability to perform ADLs and IADLs. STG Duration 4 Penitentiary Goal (LTG) Pt's right shoulder ER AROM to improve to 50 degrees or better to show improving ROM to increase ability to perform ADLs and IADLs. LTG Duration 8 Two Impairment Right shoulder AROM deficits Short Term Goal (STG) Pt's right shoulder ABD AROM to improve to 120 degrees or better to show improving ROM to increase ability to perform ADLs and IADLs. STG Duration 4 Penitentiary Goal (LTG) Pt's right shoulder ABD AROM to improve to 150 degrees or better to show improving ROM to increase ability to perform ADLs and IADLs. LTG Duration 8 One Impairment Right shoulder AROM deficits Short Term Goal (STG) Pt's right shoulder flexion AROM to improve to 120 degrees or better to show improving ROM to increase ability to perform ADLs and IADLs. STG Duration 4 Seismology Teacher Goal (LTG) Pt's right shoulder flexion AROM to improve to 150 degrees or better to show improving ROM to increase ability to perform ADLs and IADLs. LTG Duration 8 Assessment Summary Assessment The pt demonstrates improvement in AROM and PROM, however she continues with significant deficits, especially with IR and ABD. However, the pt demonstrates improved scapular mobility and neuromuscular control, as demonstrated by good form when performing straight arm rows. The pt continues to benefit from skilled PT to improve her deficits to help her return to her PLOF. Physical Therapy Plan Frequency and Duration Frequency of Treatment 2x/Week Duration of treatment (weeks) 8 Plan of Care Start Date 01/19/23 Plan of Care End Date 03/16/23 Therapeutic Interventions Therapeutic Interventions Home Exercise Program,Joint Mobilizations,Manual Therapy, Neuromuscular Re-education, Patient/Caregiver Education, Self-Care/Home Management,Soft Tissue Mobilization,Taping, Therapeutic Activities, Therapeutic Exercises Modalities Cold Pack/Ice Massage,Electric Stimulation,Hot Packs Next Visit Focus/Plan Next Note Type Treatment Note Next Visit Plan Continue manual: post/sub scap /elbow, elbow mobs as needed. PROM with emphasis improve IR, ER, ABD, FF POC: Add RUE mobility exercises, low level periscpaular srengthening exercises as tolerated. May be beneficial to add manual therapy focusing on improving PROM
--- NOTE | 2023-02-09 10:22 | PT.OTN ---
Current Diagnoses Other chronic pain (02/09/23) Pain in right shoulder (02/09/23) Physical Therapy Treatment Note PT-OP-A Visit Information Start: 01/19/23 10:48 Freq: Status: Active Protocol: Document 02/09/23 08:35 AB (Rec: 02/09/23 10:22 AB [id number]) Out-Patient Physical Therapy Visit Information Visit Information Visit Type Treatment Note Visit Start Time 08:30 Visit Stop Time 09:15 Total Visit Minutes 45 Visit Number 7 Evaluation Information Evaluation Date 01/19/23 PT-OP-B Current Condition Start: 01/19/23 10:48 Freq: Status: Active Protocol: Document 01/19/23 10:53 AB (Rec: 01/19/23 13:56 AB [id number]) Current Condition History of Current Condition Onset Date 2020 History of Current Condition The pt reports that in 2020 she had an accident off a ski lift which cause her to fall directly onto her shoulder. Since then she has had mobility deficits and pain, which is constant (4-5/10), but her pain increases with reaching up and behind her back (8/10). She was unable to seek treatment consistently due to personal reasons. She is currently seeking a second opinion and different approach to what her chiropractor took to see if she can make greater gains and relief. The pt also comments she has left lateral elbow pain/tenderness when she puts lotion on that arm and when she is doing things like weeding Prior Treatments and Tests Sports chiropractor for 6 months- some improvement noted Xray in 2020 revealed mod OA in right shoulder Treatment Goals Patient/Caregiver Goals To return to her active lifestyle including yoga and skiing. Current Functional Impairments (Reported) Functional Limitations- Work/School Retired Functional Limitations- Recreation/ Unable to participate in Hobbies recreational activities due to pain PT-OP-C Subjective Start: 01/19/23 10:48 Freq: Status: Active Protocol: Document 02/09/23 08:35 AB (Rec: 02/09/23 10:22 AB [id number]) OP-PT Subjective Patient Comments Patient Comments The pt reports that her pain is improving a bit. She forgot to use heat last night, and didn't have as much pain as she has had in the past. PT-OP-K Range of Motion Start: 01/19/23 10:48 Freq: Status: Active Protocol: Document 01/19/23 10:53 AB (Rec: 01/19/23 13:56 AB [id number]) Shoulder Goniometric Range of Motion Shoulder Right Active Testing Position Sitting Flexion 105 Abduction 94 External Rotation at 0 degrees Abduction 30 Internal Rotation Behind Back (text) L4 Comments Functional ER C6 Pain with all motions Left Active Shoulder ROM WFL Yes Testing Position Sitting Flexion 149 Abduction 149 External Rotation at 0 degrees Abduction 55 Internal Rotation Behind Back (text) T10 Comments Functional ER: T3 PT-OP-M Strength Start: 01/19/23 10:48 Freq: Status: Active Protocol: Document 01/19/23 10:53 AB (Rec: 01/19/23 13:56 AB [id number]) Shoulder Strength Shoulder Manual Muscle Testing Right Flexion 5 Normal Extension 5 Normal Abduction (C5) 4+ Good+ External Rotation 4 Good Internal Rotation 4 Good Comments 8/10 pain with flexion Left Flexion 5 Normal Extension 5 Normal Abduction (C5) 4+ Good+ External Rotation 4 Good Internal Rotation 4 Good Elbow/Forearm Strength Elbow and Forearm Manual Muscle Testing Right Flexion (C6) 5 Normal Extension (C7) 5 Normal Left Flexion (C6) 5 Normal Extension (C7) 5 Normal Pronation 5 Normal Supination 5 Normal Comments Denies pain PT-OP-Q Treatments Start: 01/19/23 10:48 Freq: Status: Active Protocol: Document 02/09/23 08:35 AB (Rec: 02/09/23 10:22 AB [id number]) Therapeutic Exercises Prone Exercises Straight arm row Side right Resistance 10# Equipment Used DB Reps/Minutes 2x10 Comments focus on engaging mid trap and rhomboids Sitting Exercises Shldr flex AAROM Sitting Exercise Name performed using bar by leaning forward Side bilateral Reps/Minutes 10x10 sec hold Standing Exercises TB shldr ER and IR Standing Exercise Name TB ER and IR walkouts at 0D of ABD Side right Resistance orange TB Reps/Minutes 2x10 ea Shldr ER AAROM Side right Resistance back to wall Equipment Used dowel Reps/Minutes [id number] hold, last rep x 15 sec Shldr ABD AAROM Side right Resistance dowel back to wall Reps/Minutes [id number] hold, last rep x 15 sec Other Exercises 1/2 kneel Tspine rotation Side bilateral Equipment Used blue [employer] ball Reps/Minutes 2x10 PT-OP-T Assessment and Plan Start: 01/19/23 10:48 Freq: Status: Active Protocol: Document 02/09/23 08:35 AB (Rec: 02/09/23 10:22 AB [id number]) Physical Therapy Assessment Goals Seven Impairment Patient questionnaire Short Term Goal (STG) Pt's QuickDASH score to improve to 12% or better to show improving subjective report of symptoms for an improved QOL. STG Duration 4 Intermediate Goal (LTG) Pt's QuickDASH score to improve to 2% or better to show improving subjective report of symptoms for an improved QOL. LTG Duration 8 Six Impairment Strength Short Term Goal (STG) Pt's gross UE MMT to improve to 4+/5 or better to show improving strength to improve ability to perform ADLs and IADLs. STG Duration 4 Intermediate Goal (LTG) Pt's gross UE MMT to improve to 5/5 or better to show improving strength to improve ability to perform functional activities and begin return to recreational activities. LTG Duration 8 Five Impairment Right shoulder AROM deficits Short Term Goal (STG) Pt's right shoulder functional IR AROM to improve to L1 or better to show improving ROM to increase ability to perform ADLs and IADLs. STG Duration 4 Intermediate Goal (LTG) Pt's right shoulder functional IR AROM to improve to T10 or better to show improving ROM to increase ability to perform ADLs and IADLs. LTG Duration 8 Four Impairment Right shoulder AROM deficits Short Term Goal (STG) Pt's right shoulder functional ER AROM to improve to T1 or better to show improving ROM to increase ability to perform ADLs and IADLs. STG Duration 4 Intermediate Goal (LTG) Pt's right shoulder functional ER AROM to improve to T3 or better to show improving ROM to increase ability to perform ADLs and IADLs. LTG Duration 8 Three Impairment Right shoulder AROM deficits Short Term Goal (STG) Pt's right shoulder ER AROM to improve to 40 degrees or better to show improving ROM to increase ability to perform ADLs and IADLs. STG Duration 4 Preventive Maintenance Engineer Goal (LTG) Pt's right shoulder ER AROM to improve to 50 degrees or better to show improving ROM to increase ability to perform ADLs and IADLs. LTG Duration 8 Two Impairment Right shoulder AROM deficits Short Term Goal (STG) Pt's right shoulder ABD AROM to improve to 120 degrees or better to show improving ROM to increase ability to perform ADLs and IADLs. STG Duration 4 Intermediate Goal (LTG) Pt's right shoulder ABD AROM to improve to 150 degrees or better to show improving ROM to increase ability to perform ADLs and IADLs. LTG Duration 8 One Impairment Right shoulder AROM deficits Short Term Goal (STG) Pt's right shoulder flexion AROM to improve to 120 degrees or better to show improving ROM to increase ability to perform ADLs and IADLs. STG Duration 4 Intermediate Goal (LTG) Pt's right shoulder flexion AROM to improve to 150 degrees or better to show improving ROM to increase ability to perform ADLs and IADLs. LTG Duration 8 Assessment Summary Assessment Warm up with UBE was discontinued, as the pt reports continued discomfort with this exercise. Shoulder AAROM with dowel was performed instead to continue improving mobility. Serratus punches with TB was performed to improve periscapular musculature strength in order to improve biomechanics. Shoulder AROM was tested and retested at the beginning of the session and at the end, with the pt demonstrating improved AROM though still significantly limited. The pt denied increased symptoms with therex. Physical Therapy Plan Frequency and Duration Frequency of Treatment 2x/Week Duration of treatment (weeks) 8 Plan of Care Start Date 01/19/23 Plan of Care End Date 03/16/23 Therapeutic Interventions Therapeutic Interventions Home Exercise Program,Joint Mobilizations,Manual Therapy, Neuromuscular Re-education, Patient/Caregiver Education, Self-Care/Home Management,Soft Tissue Mobilization,Taping, Therapeutic Activities, Therapeutic Exercises Modalities Cold Pack/Ice Massage,Electric Stimulation,Hot Packs Next Visit Focus/Plan Next Note Type Treatment Note Next Visit Plan POC: Add RUE mobility exercises, low level periscpaular strengthening exercises as tolerated. May be beneficial to add manual therapy focusing on improving PROM
--- NOTE | 2023-02-14 09:54 | PT.OTN ---
Current Diagnoses Other chronic pain (02/14/23) Pain in right shoulder (02/14/23) Physical Therapy Treatment Note PT-OP-A Visit Information Start: 01/19/23 10:48 Freq: Status: Active Protocol: Document 02/14/23 08:39 AB (Rec: 02/14/23 09:53 AB [id number]) Out-Patient Physical Therapy Visit Information Visit Information Visit Type Treatment Note Visit Start Time 08:30 Visit Stop Time 09:15 Total Visit Minutes 45 Visit Number 8 PT-OP-B Current Condition Start: 01/19/23 10:48 Freq: Status: Active Protocol: Document 01/19/23 10:53 AB (Rec: 01/19/23 13:56 AB [id number]) Current Condition History of Current Condition Onset Date 2020 History of Current Condition The pt reports that in 2020 she had an accident off a ski lift which cause her to fall directly onto her shoulder. Since then she has had mobility deficits and pain, which is constant (4-5/10), but her pain increases with reaching up and behind her back (8/10). She was unable to seek treatment consistently due to personal reasons. She is currently seeking a second opinion and different approach to what her chiropractor took to see if she can make greater gains and relief. The pt also comments she has left lateral elbow pain/tenderness when she puts lotion on that arm and when she is doing things like weeding Prior Treatments and Tests Sports chiropractor for 6 months- some improvement noted Xray in 2020 revealed mod OA in right shoulder Treatment Goals Patient/Caregiver Goals To return to her active lifestyle including yoga and skiing. Current Functional Impairments (Reported) Functional Limitations- Work/School Retired Functional Limitations- Recreation/ Unable to participate in Hobbies recreational activities due to pain PT-OP-C Subjective Start: 01/19/23 10:48 Freq: Status: Active Protocol: Document 02/14/23 08:39 AB (Rec: 02/14/23 09:53 AB [id number]) OP-PT Subjective Patient Comments Patient Comments The pt reports she was performing her stretches on Tuesday when she felt a pop in her left shoudler followed by a release/relief. She reports feeling like her mobility is improving but pain is about the same. PT-OP-K Range of Motion Start: 01/19/23 10:48 Freq: Status: Active Protocol: Document 01/19/23 10:53 AB (Rec: 01/19/23 13:56 AB [id number]) Shoulder Goniometric Range of Motion Shoulder Right Active Testing Position Sitting Flexion 105 Abduction 94 External Rotation at 0 degrees Abduction 30 Internal Rotation Behind Back (text) L4 Comments Functional ER C6 Pain with all motions Left Active Shoulder ROM WFL Yes Testing Position Sitting Flexion 149 Abduction 149 External Rotation at 0 degrees Abduction 55 Internal Rotation Behind Back (text) T10 Comments Functional ER: T3 PT-OP-M Strength Start: 01/19/23 10:48 Freq: Status: Active Protocol: Document 01/19/23 10:53 AB (Rec: 01/19/23 13:56 AB [id number]) Shoulder Strength Shoulder Manual Muscle Testing Right Flexion 5 Normal Extension 5 Normal Abduction (C5) 4+ Good+ External Rotation 4 Good Internal Rotation 4 Good Comments 8/10 pain with flexion Left Flexion 5 Normal Extension 5 Normal Abduction (C5) 4+ Good+ External Rotation 4 Good Internal Rotation 4 Good Elbow/Forearm Strength Elbow and Forearm Manual Muscle Testing Right Flexion (C6) 5 Normal Extension (C7) 5 Normal Left Flexion (C6) 5 Normal Extension (C7) 5 Normal Pronation 5 Normal Supination 5 Normal Comments Denies pain PT-OP-Q Treatments Start: 01/19/23 10:48 Freq: Status: Active Protocol: Document 02/14/23 08:39 AB (Rec: 02/14/23 09:53 AB [id number]) Therapeutic Exercises Sitting Exercises Pulleys Sitting Exercise Name Shoulder flex and ABD AAROM Side right Equipment Used Pulleys Reps/Minutes x 2 min ea Shldr flex AAROM Sitting Exercise Name performed standing rolling ball on wall + LUE lift off Equipment Used blue [place] ball Reps/Minutes 2x10 Standing Exercises TB serratus punch Side left Resistance peach TB Reps/Minutes 2x15 Comments focus on scapular protraction TB shldr ER and IR Standing Exercise Name TB ER and IR walkouts at 0D of ABD Side right Resistance orange TB Reps/Minutes 2x10 ea Other Exercises 1/2 kneel Tspine rotation Side bilateral Equipment Used blue bouncy ball Reps/Minutes 2x10 Manual Therapy Treatment Manual Techniques PROM Type FF, ABD, ER Body Position Hooklying PT-OP-T Assessment and Plan Start: 01/19/23 10:48 Freq: Status: Active Protocol: Document 02/14/23 08:39 AB (Rec: 02/14/23 09:53 AB [id number]) Physical Therapy Assessment Goals Seven Impairment Patient questionnaire Short Term Goal (STG) Pt's QuickDASH score to improve to 12% or better to show improving subjective report of symptoms for an improved QOL. STG Duration 4 Half-Way Goal (LTG) Pt's QuickDASH score to improve to 2% or better to show improving subjective report of symptoms for an improved QOL. LTG Duration 8 Six Impairment Strength Short Term Goal (STG) Pt's gross UE MMT to improve to 4+/5 or better to show improving strength to improve ability to perform ADLs and IADLs. STG Duration 4 Survey Rodman Goal (LTG) Pt's gross UE MMT to improve to 5/5 or better to show improving strength to improve ability to perform functional activities and begin return to recreational activities. LTG Duration 8 Five Impairment Right shoulder AROM deficits Short Term Goal (STG) Pt's right shoulder functional IR AROM to improve to L1 or better to show improving ROM to increase ability to perform ADLs and IADLs. STG Duration 4 Half-Way Goal (LTG) Pt's right shoulder functional IR AROM to improve to T10 or better to show improving ROM to increase ability to perform ADLs and IADLs. LTG Duration 8 Four Impairment Right shoulder AROM deficits Short Term Goal (STG) Pt's right shoulder functional ER AROM to improve to T1 or better to show improving ROM to increase ability to perform ADLs and IADLs. STG Duration 4 Survey Rodman Goal (LTG) Pt's right shoulder functional ER AROM to improve to T3 or better to show improving ROM to increase ability to perform ADLs and IADLs. LTG Duration 8 Three Impairment Right shoulder AROM deficits Short Term Goal (STG) Pt's right shoulder ER AROM to improve to 40 degrees or better to show improving ROM to increase ability to perform ADLs and IADLs. STG Duration 4 Half-Way Goal (LTG) Pt's right shoulder ER AROM to improve to 50 degrees or better to show improving ROM to increase ability to perform ADLs and IADLs. LTG Duration 8 Two Impairment Right shoulder AROM deficits Short Term Goal (STG) Pt's right shoulder ABD AROM to improve to 120 degrees or better to show improving ROM to increase ability to perform ADLs and IADLs. STG Duration 4 Survey Rodman Goal (LTG) Pt's right shoulder ABD AROM to improve to 150 degrees or better to show improving ROM to increase ability to perform ADLs and IADLs. LTG Duration 8 One Impairment Right shoulder AROM deficits Short Term Goal (STG) Pt's right shoulder flexion AROM to improve to 120 degrees or better to show improving ROM to increase ability to perform ADLs and IADLs. STG Duration 4 Half-Way Goal (LTG) Pt's right shoulder flexion AROM to improve to 150 degrees or better to show improving ROM to increase ability to perform ADLs and IADLs. LTG Duration 8 Assessment Summary Assessment Vandana demonstrates improvement in her mobility when performing open books and pulleys. She was previously only able to open up to ~90- 100D with open books but is now at ~120D. The pt is now able to achieve near full AAROM with pulleys in flexion and is at ~80% to full AAROM in ABD. The pt also shows improved scapulothoracic musculature neuromuscular control, as demonstrated by her form when performing TB serratus punches. The pt continues to benefit from skilled PT to improve her symptoms to return to her PLOF . Physical Therapy Plan Frequency and Duration Frequency of Treatment 2x/Week Duration of treatment (weeks) 8 Plan of Care Start Date 01/19/23 Plan of Care End Date 03/16/23 Therapeutic Interventions Therapeutic Interventions Home Exercise Program,Joint Mobilizations,Manual Therapy, Neuromuscular Re-education, Patient/Caregiver Education, Self-Care/Home Management,Soft Tissue Mobilization,Taping, Therapeutic Activities, Therapeutic Exercises Modalities Cold Pack/Ice Massage,Electric Stimulation,Hot Packs Next Visit Focus/Plan Next Note Type Treatment Note Next Visit Plan POC: Add RUE mobility exercises, low level periscpaular srengthening exercises as tolerated. May be beneficial to add manual therapy focusing on improving PROM
--- NOTE | 2023-02-16 10:50 | PT.OTN ---
Current Diagnoses Other chronic pain (02/16/23) Pain in right shoulder (02/16/23) Physical Therapy Treatment Note PT-OP-A Visit Information Start: 01/19/23 10:48 Freq: Status: Active Protocol: Document 02/16/23 08:34 AB (Rec: 02/16/23 10:38 AB [id number]) Out-Patient Physical Therapy Visit Information Visit Information Visit Type Treatment Note Visit Start Time 08:30 Visit Stop Time 09:15 Total Visit Minutes 45 Visit Number 8 PT-OP-B Current Condition Start: 01/19/23 10:48 Freq: Status: Active Protocol: Document 01/19/23 10:53 AB (Rec: 01/19/23 13:56 AB [id number]) Current Condition History of Current Condition Onset Date 2020 History of Current Condition The pt reports that in 2020 she had an accident off a ski lift which cause her to fall directly onto her shoulder. Since then she has had mobility deficits and pain, which is constant (4-5/10), but her pain increases with reaching up and behind her back (8/10). She was unable to seek treatment consistently due to personal reasons. She is currently seeking a second opinion and different approach to what her chiropractor took to see if she can make greater gains and relief. The pt also comments she has left lateral elbow pain/tenderness when she puts lotion on that arm and when she is doing things like weeding Prior Treatments and Tests Sports chiropractor for 6 months- some improvement noted Xray in 2020 revealed mod OA in right shoulder Treatment Goals Patient/Caregiver Goals To return to her active lifestyle including yoga and skiing. Current Functional Impairments (Reported) Functional Limitations- Work/School Retired Functional Limitations- Recreation/ Unable to participate in Hobbies recreational activities due to pain PT-OP-C Subjective Start: 01/19/23 10:48 Freq: Status: Active Protocol: Document 02/16/23 08:34 AB (Rec: 02/16/23 10:38 AB [id number]) OP-PT Subjective Patient Comments Patient Comments The pt reports she continues to feel improvement in her mobility though her pain level remains about the same. PT-OP-K Range of Motion Start: 01/19/23 10:48 Freq: Status: Active Protocol: Document 01/19/23 10:53 AB (Rec: 01/19/23 13:56 AB [id number]) Shoulder Goniometric Range of Motion Shoulder Right Active Testing Position Sitting Flexion 105 Abduction 94 External Rotation at 0 degrees Abduction 30 Internal Rotation Behind Back (text) L4 Comments Functional ER C6 Pain with all motions Left Active Shoulder ROM WFL Yes Testing Position Sitting Flexion 149 Abduction 149 External Rotation at 0 degrees Abduction 55 Internal Rotation Behind Back (text) T10 Comments Functional ER: T3 PT-OP-M Strength Start: 01/19/23 10:48 Freq: Status: Active Protocol: Document 01/19/23 10:53 AB (Rec: 01/19/23 13:56 AB [id number]) Shoulder Strength Shoulder Manual Muscle Testing Right Flexion 5 Normal Extension 5 Normal Abduction (C5) 4+ Good+ External Rotation 4 Good Internal Rotation 4 Good Comments 8/10 pain with flexion Left Flexion 5 Normal Extension 5 Normal Abduction (C5) 4+ Good+ External Rotation 4 Good Internal Rotation 4 Good Elbow/Forearm Strength Elbow and Forearm Manual Muscle Testing Right Flexion (C6) 5 Normal Extension (C7) 5 Normal Left Flexion (C6) 5 Normal Extension (C7) 5 Normal Pronation 5 Normal Supination 5 Normal Comments Denies pain PT-OP-Q Treatments Start: 01/19/23 10:48 Freq: Status: Active Protocol: Document 02/16/23 08:34 AB (Rec: 02/16/23 10:38 AB [id number]) Therapeutic Exercises Supine Exercises Shldr flex AAROM Side bilateral Equipment Used dowel Reps/Minutes 5x15 sec hold Prone Exercises push up Prone Exercise Name scap push up: prone on elbows and hips on table Reps/Minutes 2x10 Straight arm row Side right Resistance 10# Equipment Used DB Reps/Minutes 2x10 Comments focus on engaging mid trap and rhomboids Standing Exercises Posterior capsule stretch Standing Exercise Name hand on corner of wall, rotate body towards affected side Side right Reps/Minutes [id number] Comments attempted to perform in thread the needle position-pt didnt feel stetch Other Exercises 1/2 kneel Tspine rotation Side bilateral Equipment Used blue bouncy ball Reps/Minutes 1x10 Manual Therapy Treatment Joint Mobilizations R GH Jt Joint R Direction inferior, PA Grade II Body Position Supine Comments manual gentle I-II PA and inferior glide with PROM FF, ABD, tolerated feedback stayed within painfree ROM. PT-OP-T Assessment and Plan Start: 01/19/23 10:48 Freq: Status: Active Protocol: Document 02/16/23 08:34 AB (Rec: 02/16/23 10:38 AB [id number]) Physical Therapy Assessment Goals Seven Impairment Patient questionnaire Short Term Goal (STG) Pt's QuickDASH score to improve to 12% or better to show improving subjective report of symptoms for an improved QOL. STG Duration 4 Senior Care Goal (LTG) Pt's QuickDASH score to improve to 2% or better to show improving subjective report of symptoms for an improved QOL. LTG Duration 8 Six Impairment Strength Short Term Goal (STG) Pt's gross UE MMT to improve to 4+/5 or better to show improving strength to improve ability to perform ADLs and IADLs. STG Duration 4 Wool Washer Goal (LTG) Pt's gross UE MMT to improve to 5/5 or better to show improving strength to improve ability to perform functional activities and begin return to recreational activities. LTG Duration 8 Five Impairment Right shoulder AROM deficits Short Term Goal (STG) Pt's right shoulder functional IR AROM to improve to L1 or better to show improving ROM to increase ability to perform ADLs and IADLs. STG Duration 4 Wool Washer Goal (LTG) Pt's right shoulder functional IR AROM to improve to T10 or better to show improving ROM to increase ability to perform ADLs and IADLs. LTG Duration 8 Four Impairment Right shoulder AROM deficits Short Term Goal (STG) Pt's right shoulder functional ER AROM to improve to T1 or better to show improving ROM to increase ability to perform ADLs and IADLs. STG Duration 4 Wool Washer Goal (LTG) Pt's right shoulder functional ER AROM to improve to T3 or better to show improving ROM to increase ability to perform ADLs and IADLs. LTG Duration 8 Three Impairment Right shoulder AROM deficits Short Term Goal (STG) Pt's right shoulder ER AROM to improve to 40 degrees or better to show improving ROM to increase ability to perform ADLs and IADLs. STG Duration 4 Senior Care Goal (LTG) Pt's right shoulder ER AROM to improve to 50 degrees or better to show improving ROM to increase ability to perform ADLs and IADLs. LTG Duration 8 Two Impairment Right shoulder AROM deficits Short Term Goal (STG) Pt's right shoulder ABD AROM to improve to 120 degrees or better to show improving ROM to increase ability to perform ADLs and IADLs. STG Duration 4 Senior Care Goal (LTG) Pt's right shoulder ABD AROM to improve to 150 degrees or better to show improving ROM to increase ability to perform ADLs and IADLs. LTG Duration 8 One Impairment Right shoulder AROM deficits Short Term Goal (STG) Pt's right shoulder flexion AROM to improve to 120 degrees or better to show improving ROM to increase ability to perform ADLs and IADLs. STG Duration 4 Senior Care Goal (LTG) Pt's right shoulder flexion AROM to improve to 150 degrees or better to show improving ROM to increase ability to perform ADLs and IADLs. LTG Duration 8 Assessment Summary Assessment Due to complaints of tightness in posterior shoulder with UE elevation, posterior capsule stretching was added to exercise program. The pt was also progressed by adding scapular pushups prone on elbows. These were performed on elbows due to increased pain in upper arm/shoulder when performing in high plank position. Continue with focus on improving UE ROM and periscapular neuromuscular control and strength. Physical Therapy Plan Frequency and Duration Frequency of Treatment 2x/Week Duration of treatment (weeks) 8 Plan of Care Start Date 01/19/23 Plan of Care End Date 03/16/23 Therapeutic Interventions Therapeutic Interventions Home Exercise Program,Joint Mobilizations,Manual Therapy, Neuromuscular Re-education, Patient/Caregiver Education, Self-Care/Home Management,Soft Tissue Mobilization,Taping, Therapeutic Activities, Therapeutic Exercises Modalities Cold Pack/Ice Massage,Electric Stimulation,Hot Packs Next Visit Focus/Plan Next Note Type Treatment Note Next Visit Plan POC: Add RUE mobility exercises, low level periscpaular srengthening exercises as tolerated. May be beneficial to add manual therapy focusing on improving PROM
--- NOTE | 2023-02-23 10:15 | PT.OTN ---
Current Diagnoses Other chronic pain (02/23/23) Pain in right shoulder (02/23/23) Physical Therapy Treatment Note PT-OP-A Visit Information Start: 01/19/23 10:48 Freq: Status: Active Protocol: Document 02/23/23 08:51 AB (Rec: 02/23/23 10:14 AB [id number]) Out-Patient Physical Therapy Visit Information Visit Information Visit Type Treatment Note Visit Start Time 08:30 Visit Stop Time 09:15 Total Visit Minutes 45 Visit Number 10 Evaluation Information Evaluation Date 01/19/23 PT-OP-B Current Condition Start: 01/19/23 10:48 Freq: Status: Active Protocol: Document 01/19/23 10:53 AB (Rec: 01/19/23 13:56 AB [id number]) Current Condition History of Current Condition Onset Date 2020 History of Current Condition The pt reports that in 2020 she had an accident off a ski lift which cause her to fall directly onto her shoulder. Since then she has had mobility deficits and pain, which is constant (4-5/10), but her pain increases with reaching up and behind her back (8/10). She was unable to seek treatment consistently due to personal reasons. She is currently seeking a second opinion and different approach to what her chiropractor took to see if she can make greater gains and relief. The pt also comments she has left lateral elbow pain/tenderness when she puts lotion on that arm and when she is doing things like weeding Prior Treatments and Tests Sports chiropractor for 6 months- some improvement noted Xray in 2020 revealed mod OA in right shoulder Treatment Goals Patient/Caregiver Goals To return to her active lifestyle including yoga and skiing. Current Functional Impairments (Reported) Functional Limitations- Work/School Retired Functional Limitations- Recreation/ Unable to participate in Hobbies recreational activities due to pain PT-OP-C Subjective Start: 01/19/23 10:48 Freq: Status: Active Protocol: Document 02/23/23 08:51 AB (Rec: 02/23/23 10:14 AB [id number]) OP-PT Subjective Patient Comments Patient Comments The pt reports no significant change in her symptoms, but states she is feeling a little sore from weeding this weekend. PT-OP-K Range of Motion Start: 01/19/23 10:48 Freq: Status: Active Protocol: Document 01/19/23 10:53 AB (Rec: 01/19/23 13:56 AB [id number]) Shoulder Goniometric Range of Motion Shoulder Right Active Testing Position Sitting Flexion 105 Abduction 94 External Rotation at 0 degrees Abduction 30 Internal Rotation Behind Back (text) L4 Comments Functional ER C6 Pain with all motions Left Active Shoulder ROM WFL Yes Testing Position Sitting Flexion 149 Abduction 149 External Rotation at 0 degrees Abduction 55 Internal Rotation Behind Back (text) T10 Comments Functional ER: T3 PT-OP-M Strength Start: 01/19/23 10:48 Freq: Status: Active Protocol: Document 01/19/23 10:53 AB (Rec: 01/19/23 13:56 AB [id number]) Shoulder Strength Shoulder Manual Muscle Testing Right Flexion 5 Normal Extension 5 Normal Abduction (C5) 4+ Good+ External Rotation 4 Good Internal Rotation 4 Good Comments 8/10 pain with flexion Left Flexion 5 Normal Extension 5 Normal Abduction (C5) 4+ Good+ External Rotation 4 Good Internal Rotation 4 Good Elbow/Forearm Strength Elbow and Forearm Manual Muscle Testing Right Flexion (C6) 5 Normal Extension (C7) 5 Normal Left Flexion (C6) 5 Normal Extension (C7) 5 Normal Pronation 5 Normal Supination 5 Normal Comments Denies pain PT-OP-Q Treatments Start: 01/19/23 10:48 Freq: Status: Active Protocol: Document 02/23/23 08:51 AB (Rec: 02/23/23 10:14 AB [id number]) Therapeutic Exercises Supine Exercises Shldr ER AROM Supine Exercise Name AROM Side right Equipment Used 2.2# med ball Shldr flex AAROM Supine Exercise Name AAROM/AROM Side right Equipment Used 2.2# med ball Reps/Minutes 2x10 sec Comments AROM into flexion, AAROM assist from LUE Prone Exercises push up Prone Exercise Name scap push up: prone on elbows and hips on table Reps/Minutes 2x10 Comments focus on scapular protraction and retraction Straight arm row Side right Resistance 10# Equipment Used DB Reps/Minutes 2x15 Comments focus on engaging mid trap and rhomboids for scapular retraction Standing Exercises TB shldr ER and IR Standing Exercise Name TB ER and IR walkouts at 0D of ABD Side right Resistance orange TB Reps/Minutes 2x10 ea Manual Therapy Treatment Manual Techniques PROM Type FF, ABD, ER, IR Body Position Hooklying Comments ER and IR PROM performed at 45 -90 degress of ABD PT-OP-T Assessment and Plan Start: 01/19/23 10:48 Freq: Status: Active Protocol: Document 02/23/23 08:51 AB (Rec: 02/23/23 10:14 AB [id number]) Physical Therapy Assessment Goals Seven Impairment Patient questionnaire Short Term Goal (STG) Pt's QuickDASH score to improve to 12% or better to show improving subjective report of symptoms for an improved QOL. STG Duration 4 Relay Adjuster Goal (LTG) Pt's QuickDASH score to improve to 2% or better to show improving subjective report of symptoms for an improved QOL. LTG Duration 8 Six Impairment Strength Short Term Goal (STG) Pt's gross UE MMT to improve to 4+/5 or better to show improving strength to improve ability to perform ADLs and IADLs. STG Duration 4 Relay Adjuster Goal (LTG) Pt's gross UE MMT to improve to 5/5 or better to show improving strength to improve ability to perform functional activities and begin return to recreational activities. LTG Duration 8 Five Impairment Right shoulder AROM deficits Short Term Goal (STG) Pt's right shoulder functional IR AROM to improve to L1 or better to show improving ROM to increase ability to perform ADLs and IADLs. STG Duration 4 Relay Adjuster Goal (LTG) Pt's right shoulder functional IR AROM to improve to T10 or better to show improving ROM to increase ability to perform ADLs and IADLs. LTG Duration 8 Four Impairment Right shoulder AROM deficits Short Term Goal (STG) Pt's right shoulder functional ER AROM to improve to T1 or better to show improving ROM to increase ability to perform ADLs and IADLs. STG Duration 4 Group Home Goal (LTG) Pt's right shoulder functional ER AROM to improve to T3 or better to show improving ROM to increase ability to perform ADLs and IADLs. LTG Duration 8 Three Impairment Right shoulder AROM deficits Short Term Goal (STG) Pt's right shoulder ER AROM to improve to 40 degrees or better to show improving ROM to increase ability to perform ADLs and IADLs. STG Duration 4 Relay Adjuster Goal (LTG) Pt's right shoulder ER AROM to improve to 50 degrees or better to show improving ROM to increase ability to perform ADLs and IADLs. LTG Duration 8 Two Impairment Right shoulder AROM deficits Short Term Goal (STG) Pt's right shoulder ABD AROM to improve to 120 degrees or better to show improving ROM to increase ability to perform ADLs and IADLs. STG Duration 4 Relay Adjuster Goal (LTG) Pt's right shoulder ABD AROM to improve to 150 degrees or better to show improving ROM to increase ability to perform ADLs and IADLs. LTG Duration 8 One Impairment Right shoulder AROM deficits Short Term Goal (STG) Pt's right shoulder flexion AROM to improve to 120 degrees or better to show improving ROM to increase ability to perform ADLs and IADLs. STG Duration 4 Relay Adjuster Goal (LTG) Pt's right shoulder flexion AROM to improve to 150 degrees or better to show improving ROM to increase ability to perform ADLs and IADLs. LTG Duration 8 Assessment Summary Assessment Manual therapy was performed at the beginning of the session to determine whether this improved her mobility or symptoms when performing therex. The pt reported no significant change in her symptoms compared to performing manual at end of session. Added supine shoulder ER AROM with use of med ball to improve ER ROM with the assistance of gravity + weight . The pt is able to achieve greater ROM than when performing in standing. Continued focus on improving scapulothoracic mobility and neuromuscular control, with decreased UT compensation noted. The pt would continue to benefit from skilled PT with a focus on improving ROM deficits. Physical Therapy Plan Frequency and Duration Frequency of Treatment 2x/Week Duration of treatment (weeks) 8 Plan of Care Start Date 01/19/23 Plan of Care End Date 03/16/23 Therapeutic Interventions Therapeutic Interventions Home Exercise Program,Joint Mobilizations,Manual Therapy, Neuromuscular Re-education, Patient/Caregiver Education, Self-Care/Home Management,Soft Tissue Mobilization,Taping, Therapeutic Activities, Therapeutic Exercises Modalities Cold Pack/Ice Massage,Electric Stimulation,Hot Packs Next Visit Focus/Plan Next Note Type Treatment Note Next Visit Plan POC: Add RUE mobility exercises, low level periscpaular strengthening exercises as tolerated. May be beneficial to add manual therapy focusing on improving PROM
--- NOTE | 2023-03-07 16:02 | PT.OTN ---
Current Diagnoses Other chronic pain (03/07/23) Pain in right shoulder (03/07/23) Physical Therapy Treatment Note PT-OP-A Visit Information Start: 01/19/23 10:48 Freq: Status: Active Protocol: Document 03/07/23 14:38 AB (Rec: 03/07/23 16:02 AB [id number]) Out-Patient Physical Therapy Visit Information Visit Information Visit Type Treatment Note Visit Start Time 14:30 Visit Stop Time 15:15 Total Visit Minutes 45 Visit Number 11 Evaluation Information Evaluation Date 01/19/23 PT-OP-B Current Condition Start: 01/19/23 10:48 Freq: Status: Active Protocol: Document 01/19/23 10:53 AB (Rec: 01/19/23 13:56 AB [id number]) Current Condition History of Current Condition Onset Date 2020 History of Current Condition The pt reports that in 2020 she had an accident off a ski lift which cause her to fall directly onto her shoulder. Since then she has had mobility deficits and pain, which is constant (4-5/10), but her pain increases with reaching up and behind her back (8/10). She was unable to seek treatment consistently due to personal reasons. She is currently seeking a second opinion and different approach to what her chiropractor took to see if she can make greater gains and relief. The pt also comments she has left lateral elbow pain/tenderness when she puts lotion on that arm and when she is doing things like weeding Prior Treatments and Tests Sports chiropractor for 6 months- some improvement noted Xray in 2020 revealed mod OA in right shoulder Treatment Goals Patient/Caregiver Goals To return to her active lifestyle including yoga and skiing. Current Functional Impairments (Reported) Functional Limitations- Work/School Retired Functional Limitations- Recreation/ Unable to participate in Hobbies recreational activities due to pain PT-OP-C Subjective Start: 01/19/23 10:48 Freq: Status: Active Protocol: Document 03/07/23 14:38 AB (Rec: 03/07/23 16:02 AB [id number]) OP-PT Subjective Patient Comments Patient Comments The pt reporta feeling continued improvement in her mobility, but no change in her pain symptoms. PT-OP-K Range of Motion Start: 01/19/23 10:48 Freq: Status: Active Protocol: Document 01/19/23 10:53 AB (Rec: 01/19/23 13:56 AB [id number]) Shoulder Goniometric Range of Motion Shoulder Right Active Testing Position Sitting Flexion 105 Abduction 94 External Rotation at 0 degrees Abduction 30 Internal Rotation Behind Back (text) L4 Comments Functional ER C6 Pain with all motions Left Active Shoulder ROM WFL Yes Testing Position Sitting Flexion 149 Abduction 149 External Rotation at 0 degrees Abduction 55 Internal Rotation Behind Back (text) T10 Comments Functional ER: T3 PT-OP-M Strength Start: 01/19/23 10:48 Freq: Status: Active Protocol: Document 01/19/23 10:53 AB (Rec: 01/19/23 13:56 AB [id number]) Shoulder Strength Shoulder Manual Muscle Testing Right Flexion 5 Normal Extension 5 Normal Abduction (C5) 4+ Good+ External Rotation 4 Good Internal Rotation 4 Good Comments 8/10 pain with flexion Left Flexion 5 Normal Extension 5 Normal Abduction (C5) 4+ Good+ External Rotation 4 Good Internal Rotation 4 Good Elbow/Forearm Strength Elbow and Forearm Manual Muscle Testing Right Flexion (C6) 5 Normal Extension (C7) 5 Normal Left Flexion (C6) 5 Normal Extension (C7) 5 Normal Pronation 5 Normal Supination 5 Normal Comments Denies pain PT-OP-Q Treatments Start: 01/19/23 10:48 Freq: Status: Active Protocol: Document 03/07/23 14:38 AB (Rec: 03/07/23 16:02 AB [id number]) Therapeutic Exercises Supine Exercises Shldr ER AROM Supine Exercise Name AROM Side right Equipment Used 2.2# med ball Shldr flex AAROM Supine Exercise Name flexion AAROM/AROM Side right Equipment Used dowel, 2# ankle weight Reps/Minutes 3x1 min Comments added ABD Prone Exercises Straight arm row Side right Resistance 10# Equipment Used DB Reps/Minutes 2x15 Comments focus on engaging mid trap and rhomboids for scapular retraction Manual Therapy Treatment Manual Techniques PROM Type FF, ABD, ER, IR Body Position Hooklying Comments ER and IR PROM performed at 45 -90 degress of ABD Self-Care/Home Management Treatment Education Patient Education Home Exercise Program,Pain Management Other Education Pt education regarding pathophysiology of adhesive capsulitis. PT-OP-T Assessment and Plan Start: 01/19/23 10:48 Freq: Status: Active Protocol: Document 03/07/23 14:38 AB (Rec: 03/07/23 16:02 AB [id number]) Physical Therapy Assessment Goals Seven Impairment Patient questionnaire Short Term Goal (STG) Pt's QuickDASH score to improve to 12% or better to show improving subjective report of symptoms for an improved QOL. STG Duration 4 [employer] Goal (LTG) Pt's QuickDASH score to improve to 2% or better to show improving subjective report of symptoms for an improved QOL. LTG Duration 8 Six Impairment Strength Short Term Goal (STG) Pt's gross UE MMT to improve to 4+/5 or better to show improving strength to improve ability to perform ADLs and IADLs. STG Duration 4 Halfway Goal (LTG) Pt's gross UE MMT to improve to 5/5 or better to show improving strength to improve ability to perform functional activities and begin return to recreational activities. LTG Duration 8 Five Impairment Right shoulder AROM deficits Short Term Goal (STG) Pt's right shoulder functional IR AROM to improve to L1 or better to show improving ROM to increase ability to perform ADLs and IADLs. STG Duration 4 Halfway Goal (LTG) Pt's right shoulder functional IR AROM to improve to T10 or better to show improving ROM to increase ability to perform ADLs and IADLs. LTG Duration 8 Four Impairment Right shoulder AROM deficits Short Term Goal (STG) Pt's right shoulder functional ER AROM to improve to T1 or better to show improving ROM to increase ability to perform ADLs and IADLs. STG Duration 4 [employer] Goal (LTG) Pt's right shoulder functional ER AROM to improve to T3 or better to show improving ROM to increase ability to perform ADLs and IADLs. LTG Duration 8 Three Impairment Right shoulder AROM deficits Short Term Goal (STG) Pt's right shoulder ER AROM to improve to 40 degrees or better to show improving ROM to increase ability to perform ADLs and IADLs. STG Duration 4 [employer] Goal (LTG) Pt's right shoulder ER AROM to improve to 50 degrees or better to show improving ROM to increase ability to perform ADLs and IADLs. LTG Duration 8 Two Impairment Right shoulder AROM deficits Short Term Goal (STG) Pt's right shoulder ABD AROM to improve to 120 degrees or better to show improving ROM to increase ability to perform ADLs and IADLs. STG Duration 4 Halfway Goal (LTG) Pt's right shoulder ABD AROM to improve to 150 degrees or better to show improving ROM to increase ability to perform ADLs and IADLs. LTG Duration 8 One Impairment Right shoulder AROM deficits Short Term Goal (STG) Pt's right shoulder flexion AROM to improve to 120 degrees or better to show improving ROM to increase ability to perform ADLs and IADLs. STG Duration 4 Halfway Goal (LTG) Pt's right shoulder flexion AROM to improve to 150 degrees or better to show improving ROM to increase ability to perform ADLs and IADLs. LTG Duration 8 Assessment Summary Assessment Extended amount of time was spend educating the pt on pathophysiology and prognosis of adhesive capsulitis, as well as course of PT treatment . Exercises performed today were focused on holding stretch to improve mobility. The pt continues to benefit from skilled PT at this time. Physical Therapy Plan Frequency and Duration Frequency of Treatment 2x/Week Duration of treatment (weeks) 8 Plan of Care Start Date 01/19/23 Plan of Care End Date 03/16/23 Therapeutic Interventions Therapeutic Interventions Home Exercise Program,Joint Mobilizations,Manual Therapy, Neuromuscular Re-education, Patient/Caregiver Education, Self-Care/Home Management,Soft Tissue Mobilization,Taping, Therapeutic Activities, Therapeutic Exercises Modalities Cold Pack/Ice Massage,Electric Stimulation,Hot Packs Next Visit Focus/Plan Next Note Type Progress Note Next Visit Plan Assess progress, updated POC as indicated.
--- NOTE | 2023-03-09 17:18 | PT.OTN ---
Current Diagnoses Other chronic pain (03/09/23) Pain in right shoulder (03/09/23) Physical Therapy Treatment Note PT-OP-A Visit Information Start: 01/19/23 10:48 Freq: Status: Active Protocol: Document 03/09/23 17:05 AB (Rec: 03/09/23 17:18 AB [id number]) Out-Patient Physical Therapy Visit Information Visit Information Visit Type Progress Note Visit Start Time 11:47 Visit Stop Time 12:30 Total Visit Minutes 43 Visit Number 12 Evaluation Information Evaluation Date 01/19/23 PT-OP-B Current Condition Start: 01/19/23 10:48 Freq: Status: Active Protocol: Document 03/09/23 17:05 AB (Rec: 03/09/23 17:18 AB [id number]) Current Condition History of Current Condition Onset Date 2020 History of Current Condition The pt reports that in 2020 she had an accident off a ski lift which cause her to fall directly onto her shoulder. Since then she has had mobility deficits and pain, which is constant (4-5/10), but her pain increases with reaching up and behind her back (8/10). She was unable to seek treatment consistently due to personal reasons. She is currently seeking a second opinion and different approach to what her chiropractor took to see if she can make greater gains and relief. The pt also comments she has left lateral elbow pain/tenderness when she puts lotion on that arm and when she is doing things like weeding Prior Treatments and Tests Sports chiropractor for 6 months- some improvement noted Xray in 2020 revealed mod OA in right shoulder Current Functional Impairments (Reported) Functional Limitations- Work/School Retired Functional Limitations- Recreation/ Is able to perform all ADLs, Hobbies IADLs but with increased pain. PT-OP-C Subjective Start: 01/19/23 10:48 Freq: Status: Active Protocol: Document 03/09/23 17:05 AB (Rec: 03/09/23 17:18 AB [id number]) OP-PT Subjective Patient Comments Patient Comments The pt reports feeling improvement in mobility but no significant change in her pain. She also reports feeling like she isn't making progress at times because of her continued deficits. Patient Questionnaires Quick Dash- Upper Extremity Quick Dash UE Score 20.45% Quick Dash UE Impairment 20 to 39% Impaired (Score 20- 39) PT-OP-K Range of Motion Start: 01/19/23 10:48 Freq: Status: Active Protocol: Document 03/09/23 17:05 AB (Rec: 03/09/23 17:18 AB [id number]) Shoulder Goniometric Range of Motion Shoulder Right Active Testing Position Sitting Flexion 110 Abduction 100 External Rotation at 0 degrees Abduction 35 Internal Rotation Behind Back (text) T10 Comments Functional ER: T3 Pain with all motions Left Active Shoulder ROM WFL Yes Testing Position Sitting Flexion 160 Abduction 162 External Rotation at 0 degrees Abduction 60 Internal Rotation Behind Back (text) T7 Comments Functional ER: T3 PT-OP-M Strength Start: 01/19/23 10:48 Freq: Status: Active Protocol: Document 03/09/23 17:05 AB (Rec: 03/09/23 17:18 AB [id number]) Shoulder Strength Shoulder Manual Muscle Testing Right Flexion 5 Normal Extension 5 Normal Abduction (C5) 5 Normal External Rotation 5 Normal Internal Rotation 5 Normal Comments 8/10 pain with flexion Left Flexion 5 Normal Extension 5 Normal Abduction (C5) 5 Normal External Rotation 5 Normal Internal Rotation 5 Normal Elbow/Forearm Strength Elbow and Forearm Manual Muscle Testing Right Flexion (C6) 5 Normal Extension (C7) 5 Normal Comments Denies pain Left Flexion (C6) 5 Normal Extension (C7) 5 Normal Pronation 5 Normal Supination 5 Normal Comments Denies pain PT-OP-Q Treatments Start: 01/19/23 10:48 Freq: Status: Active Protocol: Document 03/09/23 17:05 AB (Rec: 03/09/23 17:18 AB [id number]) Therapeutic Exercises Supine Exercises Shldr flex AAROM Supine Exercise Name flexion AAROM/AROM Side right Equipment Used dowel, 2# ankle weight Reps/Minutes 3x1 min Comments added ABD Manual Therapy Treatment Manual Techniques PROM Type FF, ABD, ER, IR Body Position Hooklying Comments ER and IR PROM performed at 45 -90 degress of ABD Self-Care/Home Management Treatment Education Patient Education Home Exercise Program,Pain Management Other Education Pt education regarding pathophysiology of adhesive capsulitis. Education regarding PN findings and updated POC. PT-OP-T Assessment and Plan Start: 01/19/23 10:48 Freq: Status: Active Protocol: Document 03/09/23 17:05 AB (Rec: 03/09/23 17:18 AB [id number]) Physical Therapy Assessment Goals Seven Impairment Patient questionnaire Short Term Goal (STG) Pt's QuickDASH score to improve to 12% or better to show improving subjective report of symptoms for an improved QOL. STG Duration 4 Senior Supplier Quality Engineer Goal (LTG) Pt's QuickDASH score to improve to 2% or better to show improving subjective report of symptoms for an improved QOL. LTG Duration 8 Six Impairment Strength Short Term Goal (STG) Pt's gross UE MMT to improve to 4+/5 or better to show improving strength to improve ability to perform ADLs and IADLs. STG Duration 4 Senior Supplier Quality Engineer Goal (LTG) Pt's gross UE MMT to improve to 5/5 or better to show improving strength to improve ability to perform functional activities and begin return to recreational activities. LTG Duration 8 Five Impairment Right shoulder AROM deficits Short Term Goal (STG) Pt's right shoulder functional IR AROM to improve to L1 or better to show improving ROM to increase ability to perform ADLs and IADLs. STG Duration 4 Group Home Goal (LTG) Pt's right shoulder functional IR AROM to improve to T10 or better to show improving ROM to increase ability to perform ADLs and IADLs. LTG Duration 8 Four Impairment Right shoulder AROM deficits Short Term Goal (STG) Pt's right shoulder functional ER AROM to improve to T1 or better to show improving ROM to increase ability to perform ADLs and IADLs. STG Duration 4 Senior Supplier Quality Engineer Goal (LTG) Pt's right shoulder functional ER AROM to improve to T3 or better to show improving ROM to increase ability to perform ADLs and IADLs. LTG Duration 8 Three Impairment Right shoulder AROM deficits Short Term Goal (STG) Pt's right shoulder ER AROM to improve to 40 degrees or better to show improving ROM to increase ability to perform ADLs and IADLs. STG Duration 4 Group Home Goal (LTG) Pt's right shoulder ER AROM to improve to 50 degrees or better to show improving ROM to increase ability to perform ADLs and IADLs. LTG Duration 8 Two Impairment Right shoulder AROM deficits Short Term Goal (STG) Pt's right shoulder ABD AROM to improve to 120 degrees or better to show improving ROM to increase ability to perform ADLs and IADLs. STG Duration 4 Senior Supplier Quality Engineer Goal (LTG) Pt's right shoulder ABD AROM to improve to 150 degrees or better to show improving ROM to increase ability to perform ADLs and IADLs. LTG Duration 8 One Impairment Right shoulder AROM deficits Short Term Goal (STG) Pt's right shoulder flexion AROM to improve to 120 degrees or better to show improving ROM to increase ability to perform ADLs and IADLs. STG Duration 4 Senior Supplier Quality Engineer Goal (LTG) Pt's right shoulder flexion AROM to improve to 150 degrees or better to show improving ROM to increase ability to perform ADLs and IADLs. LTG Duration 8 Progress Towards Goals Progress Towards Goals Progressing Toward Goals Assessment Summary Assessment Vandana Lind has completed 11 visits of skilled PT to improve her right shoulder mobility deficits and pain symptoms. The pt currently shows good improvement in bilateral UE ROM, as well as in her MMT scores. However, her RUE continues to be limited compared to her LUE. She does report that her symptoms do not prevent her from performing her ADLs and IADLs, and has been trying to participate in recreational activities such as yoga to improve her impairments. Based on her improvements but remaining deficits, the pt would benefit from continued skilled PT interventions as per her updated POC in order to continue making gains towards her goals to return to her PLOF. Physical Therapy Plan Frequency and Duration Frequency of Treatment 2x/Week Duration of treatment (weeks) 8 Plan of Care Start Date 03/09/23 Plan of Care End Date 05/04/23 Therapeutic Interventions Therapeutic Interventions Home Exercise Program,Joint Mobilizations,Manual Therapy, Neuromuscular Re-education, Patient/Caregiver Education, Self-Care/Home Management,Soft Tissue Mobilization,Taping, Therapeutic Activities, Therapeutic Exercises Modalities Cold Pack/Ice Massage,Electric Stimulation,Hot Packs Next Visit Focus/Plan Next Note Type Treatment Note Next Visit Plan Continue focusing on UE mobility deficits.
--- NOTE | 2023-03-09 17:20 | PT.OPPOC ---
Physical, Occupational & Speech Therapy At [facility] Current Diagnoses Other chronic pain (03/09/23) Pain in right shoulder (03/09/23) Visit Care Team Role Provider Type Sumanth Ryan MD Attending Provider Physician Family Provider Primary Care Provider Referring Provider Specialty: Family Practice Address: [address] [place] [address] Email: [email or web address] Plan Of Care PT-OP-T Assessment and Plan Start: 01/19/23 10:48 Freq: Status: Active Protocol: Document 03/09/23 17:05 AB (Rec: 03/09/23 17:18 AB [id number]) Physical Therapy Assessment Goals Seven Impairment Patient questionnaire Short Term Goal (STG) Pt's QuickDASH score to improve to 12% or better to show improving subjective report of symptoms for an improved QOL. STG Duration 4 Yoga Coordinator Goal (LTG) Pt's QuickDASH score to improve to 2% or better to show improving subjective report of symptoms for an improved QOL. LTG Duration 8 Six Impairment Strength Short Term Goal (STG) Pt's gross UE MMT to improve to 4+/5 or better to show improving strength to improve ability to perform ADLs and IADLs. STG Duration 4 Yoga Coordinator Goal (LTG) Pt's gross UE MMT to improve to 5/5 or better to show improving strength to improve ability to perform functional activities and begin return to recreational activities. LTG Duration 8 Five Impairment Right shoulder AROM deficits Short Term Goal (STG) Pt's right shoulder functional IR AROM to improve to L1 or better to show improving ROM to increase ability to perform ADLs and IADLs. STG Duration 4 Yoga Coordinator Goal (LTG) Pt's right shoulder functional IR AROM to improve to T10 or better to show improving ROM to increase ability to perform ADLs and IADLs. LTG Duration 8 Four Impairment Right shoulder AROM deficits Short Term Goal (STG) Pt's right shoulder functional ER AROM to improve to T1 or better to show improving ROM to increase ability to perform ADLs and IADLs. STG Duration 4 Yoga Coordinator Goal (LTG) Pt's right shoulder functional ER AROM to improve to T3 or better to show improving ROM to increase ability to perform ADLs and IADLs. LTG Duration 8 Three Impairment Right shoulder AROM deficits Short Term Goal (STG) Pt's right shoulder ER AROM to improve to 40 degrees or better to show improving ROM to increase ability to perform ADLs and IADLs. STG Duration 4 Halfway Goal (LTG) Pt's right shoulder ER AROM to improve to 50 degrees or better to show improving ROM to increase ability to perform ADLs and IADLs. LTG Duration 8 Two Impairment Right shoulder AROM deficits Short Term Goal (STG) Pt's right shoulder ABD AROM to improve to 120 degrees or better to show improving ROM to increase ability to perform ADLs and IADLs. STG Duration 4 Halfway Goal (LTG) Pt's right shoulder ABD AROM to improve to 150 degrees or better to show improving ROM to increase ability to perform ADLs and IADLs. LTG Duration 8 One Impairment Right shoulder AROM deficits Short Term Goal (STG) Pt's right shoulder flexion AROM to improve to 120 degrees or better to show improving ROM to increase ability to perform ADLs and IADLs. STG Duration 4 Halfway Goal (LTG) Pt's right shoulder flexion AROM to improve to 150 degrees or better to show improving ROM to increase ability to perform ADLs and IADLs. LTG Duration 8 Progress Towards Goals Progress Towards Goals Progressing Toward Goals Assessment Summary Assessment Vandana Lind has completed 11 visits of skilled PT to improve her right shoulder mobility deficits and pain symptoms. The pt currently shows good improvement in bilateral UE ROM, as well as in her MMT scores. However, her RUE continues to be limited compared to her LUE. She does report that her symptoms do not prevent her from performing her ADLs and IADLs, and has been trying to participate in recreational activities such as yoga to improve her impairments. Based on her improvements but remaining deficits, the pt would benefit from continued skilled PT interventions as per her updated POC in order to continue making gains towards her goals to return to her PLOF. Physical Therapy Plan Frequency and Duration Frequency of Treatment 2x/Week Duration of treatment (weeks) 8 Plan of Care Start Date 03/09/23 Plan of Care End Date 05/04/23 Therapeutic Interventions Therapeutic Interventions Home Exercise Program,Joint Mobilizations,Manual Therapy, Neuromuscular Re-education, Patient/Caregiver Education, Self-Care/Home Management,Soft Tissue Mobilization,Taping, Therapeutic Activities, Therapeutic Exercises Modalities Cold Pack/Ice Massage,Electric Stimulation,Hot Packs Next Visit Focus/Plan Next Note Type Treatment Note Next Visit Plan Continue focusing on UE mobility deficits. Plan of Care Dates Plan of Care Start Date 03/09/23 Plan of Care End Date 05/04/23 Electronically Signed by: Raji Garcia, PT 03/09/23 [id number] If you are in agreement with this Plan of Care, please return a signed and dated copy. I have reviewed this Plan of Care and certify that the skilled therapy services above are required to meet the patient?s needs. Physician Signature Date Printed Name and Credentials Clinical Instructor Signature Printed Name and Credentials
--- NOTE | 2023-03-14 13:14 | PT.OTN ---
Current Diagnoses Other chronic pain (03/14/23) Pain in right shoulder (03/14/23) Physical Therapy Treatment Note PT-OP-A Visit Information Start: 01/19/23 10:48 Freq: Status: Active Protocol: Document 03/14/23 11:00 AB (Rec: 03/14/23 13:14 AB [id number]) Out-Patient Physical Therapy Visit Information Visit Information Visit Type Treatment Note Visit Start Time 11:00 Visit Stop Time 11:45 Total Visit Minutes 45 Visit Number 13 Evaluation Information Evaluation Date 01/19/23 PT-OP-B Current Condition Start: 01/19/23 10:48 Freq: Status: Active Protocol: Document 03/09/23 17:05 AB (Rec: 03/09/23 17:18 AB [id number]) Current Condition History of Current Condition Onset Date 2020 History of Current Condition The pt reports that in 2020 she had an accident off a ski lift which cause her to fall directly onto her shoulder. Since then she has had mobility deficits and pain, which is constant (4-5/10), but her pain increases with reaching up and behind her back (8/10). She was unable to seek treatment consistently due to personal reasons. She is currently seeking a second opinion and different approach to what her chiropractor took to see if she can make greater gains and relief. The pt also comments she has left lateral elbow pain/tenderness when she puts lotion on that arm and when she is doing things like weeding Prior Treatments and Tests Sports chiropractor for 6 months- some improvement noted Xray in 2020 revealed mod OA in right shoulder Current Functional Impairments (Reported) Functional Limitations- Work/School Retired Functional Limitations- Recreation/ Is able to perform all ADLs, Hobbies IADLs but with increased pain. PT-OP-C Subjective Start: 01/19/23 10:48 Freq: Status: Active Protocol: Document 03/14/23 11:00 AB (Rec: 03/14/23 13:14 AB [id number]) OP-PT Subjective Patient Comments Patient Comments Vandana states she felt a lot better on , the day after her PT session, which she attributes to the PROM done that day. PT-OP-K Range of Motion Start: 01/19/23 10:48 Freq: Status: Active Protocol: Document 03/09/23 17:05 AB (Rec: 03/09/23 17:18 AB [id number]) Shoulder Goniometric Range of Motion Shoulder Right Active Testing Position Sitting Flexion 110 Abduction 100 External Rotation at 0 degrees Abduction 35 Internal Rotation Behind Back (text) T10 Comments Functional ER: T3 Pain with all motions Left Active Shoulder ROM WFL Yes Testing Position Sitting Flexion 160 Abduction 162 External Rotation at 0 degrees Abduction 60 Internal Rotation Behind Back (text) T7 Comments Functional ER: T3 PT-OP-M Strength Start: 01/19/23 10:48 Freq: Status: Active Protocol: Document 03/09/23 17:05 AB (Rec: 03/09/23 17:18 AB [id number]) Shoulder Strength Shoulder Manual Muscle Testing Right Flexion 5 Normal Extension 5 Normal Abduction (C5) 5 Normal External Rotation 5 Normal Internal Rotation 5 Normal Comments 8/10 pain with flexion Left Flexion 5 Normal Extension 5 Normal Abduction (C5) 5 Normal External Rotation 5 Normal Internal Rotation 5 Normal Elbow/Forearm Strength Elbow and Forearm Manual Muscle Testing Right Flexion (C6) 5 Normal Extension (C7) 5 Normal Comments Denies pain Left Flexion (C6) 5 Normal Extension (C7) 5 Normal Pronation 5 Normal Supination 5 Normal Comments Denies pain PT-OP-Q Treatments Start: 01/19/23 10:48 Freq: Status: Active Protocol: Document 03/14/23 11:00 AB (Rec: 03/14/23 13:14 AB [id number]) Therapeutic Exercises Supine Exercises Shldr ER AROM Supine Exercise Name AROM Side right Equipment Used 3.3# med ball Shldr flex AAROM Supine Exercise Name flexion AAROM/AROM Side right Equipment Used dowel, 4# ankle weight Reps/Minutes 3x1 min Comments added ABD Prone Exercises Snow angels Side bilateral Equipment Used plinth Reps/Minutes 2x5 Comments Pt exhibits UT and periscapular compensations to achieve shldr flex Child's pose Prone Exercise Name on plinth to grab on to edge to get shoulder traction with shoulder flexion Equipment Used plinth Reps/Minutes 3x30 sec push up Prone Exercise Name scap push up: prone on elbows and hips on table Reps/Minutes 2x15 Comments focus on scapular protraction and retraction Straight arm row Side right Resistance 10# Equipment Used DB Reps/Minutes 2x15 Comments focus on engaging mid trap and rhomboids for scapular retraction Standing Exercises TB shldr ER and IR Standing Exercise Name TB ER and IR walkouts at 0D of ABD Side right Resistance [place] TB Reps/Minutes 2x10 ea PT-OP-T Assessment and Plan Start: 01/19/23 10:48 Freq: Status: Active Protocol: Document 03/14/23 11:00 AB (Rec: 03/14/23 13:14 AB [id number]) Physical Therapy Assessment Goals Seven Impairment Patient questionnaire Short Term Goal (STG) Pt's QuickDASH score to improve to 12% or better to show improving subjective report of symptoms for an improved QOL. STG Duration 4 Supervisor Farm Equipment Maintenance Goal (LTG) Pt's QuickDASH score to improve to 2% or better to show improving subjective report of symptoms for an improved QOL. LTG Duration 8 Six Impairment Strength Short Term Goal (STG) Pt's gross UE MMT to improve to 4+/5 or better to show improving strength to improve ability to perform ADLs and IADLs. STG Duration 4 Half-Way Goal (LTG) Pt's gross UE MMT to improve to 5/5 or better to show improving strength to improve ability to perform functional activities and begin return to recreational activities. LTG Duration 8 Five Impairment Right shoulder AROM deficits Short Term Goal (STG) Pt's right shoulder functional IR AROM to improve to L1 or better to show improving ROM to increase ability to perform ADLs and IADLs. STG Duration 4 Half-Way Goal (LTG) Pt's right shoulder functional IR AROM to improve to T10 or better to show improving ROM to increase ability to perform ADLs and IADLs. LTG Duration 8 Four Impairment Right shoulder AROM deficits Short Term Goal (STG) Pt's right shoulder functional ER AROM to improve to T1 or better to show improving ROM to increase ability to perform ADLs and IADLs. STG Duration 4 Half-Way Goal (LTG) Pt's right shoulder functional ER AROM to improve to T3 or better to show improving ROM to increase ability to perform ADLs and IADLs. LTG Duration 8 Three Impairment Right shoulder AROM deficits Short Term Goal (STG) Pt's right shoulder ER AROM to improve to 40 degrees or better to show improving ROM to increase ability to perform ADLs and IADLs. STG Duration 4 Half-Way Goal (LTG) Pt's right shoulder ER AROM to improve to 50 degrees or better to show improving ROM to increase ability to perform ADLs and IADLs. LTG Duration 8 Two Impairment Right shoulder AROM deficits Short Term Goal (STG) Pt's right shoulder ABD AROM to improve to 120 degrees or better to show improving ROM to increase ability to perform ADLs and IADLs. STG Duration 4 Half-Way Goal (LTG) Pt's right shoulder ABD AROM to improve to 150 degrees or better to show improving ROM to increase ability to perform ADLs and IADLs. LTG Duration 8 One Impairment Right shoulder AROM deficits Short Term Goal (STG) Pt's right shoulder flexion AROM to improve to 120 degrees or better to show improving ROM to increase ability to perform ADLs and IADLs. STG Duration 4 Half-Way Goal (LTG) Pt's right shoulder flexion AROM to improve to 150 degrees or better to show improving ROM to increase ability to perform ADLs and IADLs. LTG Duration 8 Assessment Summary Assessment The pt was progressed today by adding resistance to supine shoulder flexion and ER AROM in order to help achieve further ROM. Scap pushups were reintroduced, and child's pose stretch was performed on a plinth today to provide shoulder traction when going into flexion. The pt continues to benefit from skilled PT to improve her ROM deficits and to slowly progress load tolerance. Physical Therapy Plan Frequency and Duration Frequency of Treatment 2x/Week Duration of treatment (weeks) 8 Plan of Care Start Date 03/09/23 Plan of Care End Date 05/04/23 Therapeutic Interventions Therapeutic Interventions Home Exercise Program,Joint Mobilizations,Manual Therapy, Neuromuscular Re-education, Patient/Caregiver Education, Self-Care/Home Management,Soft Tissue Mobilization,Taping, Therapeutic Activities, Therapeutic Exercises Modalities Cold Pack/Ice Massage,Electric Stimulation,Hot Packs Next Visit Focus/Plan Next Note Type Treatment Note Next Visit Plan Continue focusing on UE mobility deficits.
--- NOTE | 2023-03-16 10:54 | PT.OTN ---
Current Diagnoses Other chronic pain (03/16/23) Pain in right shoulder (03/16/23) Physical Therapy Treatment Note PT-OP-A Visit Information Start: 01/19/23 10:48 Freq: Status: Active Protocol: Document 03/16/23 10:28 AB (Rec: 03/16/23 10:52 AB [id number]) Out-Patient Physical Therapy Visit Information Visit Information Visit Type Treatment Note Visit Start Time 09:15 Visit Stop Time 10:00 Total Visit Minutes 45 Visit Number 14 Evaluation Information Evaluation Date 01/19/23 PT-OP-B Current Condition Start: 01/19/23 10:48 Freq: Status: Active Protocol: Document 03/09/23 17:05 AB (Rec: 03/09/23 17:18 AB [id number]) Current Condition History of Current Condition Onset Date 2020 History of Current Condition The pt reports that in 2020 she had an accident off a ski lift which cause her to fall directly onto her shoulder. Since then she has had mobility deficits and pain, which is constant (4-5/10), but her pain increases with reaching up and behind her back (8/10). She was unable to seek treatment consistently due to personal reasons. She is currently seeking a second opinion and different approach to what her chiropractor took to see if she can make greater gains and relief. The pt also comments she has left lateral elbow pain/tenderness when she puts lotion on that arm and when she is doing things like weeding Prior Treatments and Tests Sports chiropractor for 6 months- some improvement noted Xray in 2020 revealed mod OA in right shoulder Current Functional Impairments (Reported) Functional Limitations- Work/School Retired Functional Limitations- Recreation/ Is able to perform all ADLs, Hobbies IADLs but with increased pain. PT-OP-C Subjective Start: 01/19/23 10:48 Freq: Status: Active Protocol: Document 03/16/23 10:28 AB (Rec: 03/16/23 10:52 AB [id number]) OP-PT Subjective Patient Comments Patient Comments The pt reports no significant change in her symptoms since last visit. PT-OP-K Range of Motion Start: 01/19/23 10:48 Freq: Status: Active Protocol: Document 03/09/23 17:05 AB (Rec: 03/09/23 17:18 AB [id number]) Shoulder Goniometric Range of Motion Shoulder Right Active Testing Position Sitting Flexion 110 Abduction 100 External Rotation at 0 degrees Abduction 35 Internal Rotation Behind Back (text) T10 Comments Functional ER: T3 Pain with all motions Left Active Shoulder ROM WFL Yes Testing Position Sitting Flexion 160 Abduction 162 External Rotation at 0 degrees Abduction 60 Internal Rotation Behind Back (text) T7 Comments Functional ER: T3 PT-OP-M Strength Start: 01/19/23 10:48 Freq: Status: Active Protocol: Document 03/09/23 17:05 AB (Rec: 03/09/23 17:18 AB [id number]) Shoulder Strength Shoulder Manual Muscle Testing Right Flexion 5 Normal Extension 5 Normal Abduction (C5) 5 Normal External Rotation 5 Normal Internal Rotation 5 Normal Comments 8/10 pain with flexion Left Flexion 5 Normal Extension 5 Normal Abduction (C5) 5 Normal External Rotation 5 Normal Internal Rotation 5 Normal Elbow/Forearm Strength Elbow and Forearm Manual Muscle Testing Right Flexion (C6) 5 Normal Extension (C7) 5 Normal Comments Denies pain Left Flexion (C6) 5 Normal Extension (C7) 5 Normal Pronation 5 Normal Supination 5 Normal Comments Denies pain PT-OP-Q Treatments Start: 01/19/23 10:48 Freq: Status: Active Protocol: Document 03/16/23 10:28 AB (Rec: 03/16/23 10:52 AB [id number]) Therapeutic Exercises Supine Exercises Shldr flex AAROM Supine Exercise Name flexion AAROM/AROM Side right Equipment Used dowel, 4# ankle weight Reps/Minutes 3x1 min Prone Exercises push up Prone Exercise Name scap push up: prone on elbows and hips on table Reps/Minutes 2x15 Comments focus on scapular protraction and retraction Standing Exercises TB shldr exercises Standing Exercise Name TB shoulder flexion, extension walkouts Side right Resistance [place] TB Reps/Minutes 2x15 ea TB shldr ER and IR Standing Exercise Name TB ER and IR walkouts at 0D of ABD Side right Resistance [place] TB Reps/Minutes 2x10 ea Manual Therapy Treatment Manual Techniques PROM Type FF, ABD, ER, IR Body Position Hooklying Comments ER and IR PROM performed at 45 -90 degress of ABD PT-OP-T Assessment and Plan Start: 01/19/23 10:48 Freq: Status: Active Protocol: Document 03/16/23 10:28 AB (Rec: 03/16/23 10:52 AB [id number]) Physical Therapy Assessment Goals Seven Impairment Patient questionnaire Short Term Goal (STG) Pt's QuickDASH score to improve to 12% or better to show improving subjective report of symptoms for an improved QOL. STG Duration 4 Office Assistant Receptionist Goal (LTG) Pt's QuickDASH score to improve to 2% or better to show improving subjective report of symptoms for an improved QOL. LTG Duration 8 Six Impairment Strength Short Term Goal (STG) Pt's gross UE MMT to improve to 4+/5 or better to show improving strength to improve ability to perform ADLs and IADLs. STG Duration 4 Residential Goal (LTG) Pt's gross UE MMT to improve to 5/5 or better to show improving strength to improve ability to perform functional activities and begin return to recreational activities. LTG Duration 8 Five Impairment Right shoulder AROM deficits Short Term Goal (STG) Pt's right shoulder functional IR AROM to improve to L1 or better to show improving ROM to increase ability to perform ADLs and IADLs. STG Duration 4 Office Assistant Receptionist Goal (LTG) Pt's right shoulder functional IR AROM to improve to T10 or better to show improving ROM to increase ability to perform ADLs and IADLs. LTG Duration 8 Four Impairment Right shoulder AROM deficits Short Term Goal (STG) Pt's right shoulder functional ER AROM to improve to T1 or better to show improving ROM to increase ability to perform ADLs and IADLs. STG Duration 4 Residential Goal (LTG) Pt's right shoulder functional ER AROM to improve to T3 or better to show improving ROM to increase ability to perform ADLs and IADLs. LTG Duration 8 Three Impairment Right shoulder AROM deficits Short Term Goal (STG) Pt's right shoulder ER AROM to improve to 40 degrees or better to show improving ROM to increase ability to perform ADLs and IADLs. STG Duration 4 Residential Goal (LTG) Pt's right shoulder ER AROM to improve to 50 degrees or better to show improving ROM to increase ability to perform ADLs and IADLs. LTG Duration 8 Two Impairment Right shoulder AROM deficits Short Term Goal (STG) Pt's right shoulder ABD AROM to improve to 120 degrees or better to show improving ROM to increase ability to perform ADLs and IADLs. STG Duration 4 Office Assistant Receptionist Goal (LTG) Pt's right shoulder ABD AROM to improve to 150 degrees or better to show improving ROM to increase ability to perform ADLs and IADLs. LTG Duration 8 One Impairment Right shoulder AROM deficits Short Term Goal (STG) Pt's right shoulder flexion AROM to improve to 120 degrees or better to show improving ROM to increase ability to perform ADLs and IADLs. STG Duration 4 Office Assistant Receptionist Goal (LTG) Pt's right shoulder flexion AROM to improve to 150 degrees or better to show improving ROM to increase ability to perform ADLs and IADLs. LTG Duration 8 Assessment Summary Assessment Shoulder isometric strengthening exercises were added to improve shoulder flexion and extension strength without compromising shoulder due to ROM deficits. Isometrics also generally help to reduce pain symptoms. Otherwise, continued with last session's progressions without increase in symptoms. Physical Therapy Plan Frequency and Duration Frequency of Treatment 2x/Week Duration of treatment (weeks) 8 Plan of Care Start Date 03/09/23 Plan of Care End Date 05/04/23 Therapeutic Interventions Therapeutic Interventions Home Exercise Program,Joint Mobilizations,Manual Therapy, Neuromuscular Re-education, Patient/Caregiver Education, Self-Care/Home Management,Soft Tissue Mobilization,Taping, Therapeutic Activities, Therapeutic Exercises Modalities Cold Pack/Ice Massage,Electric Stimulation,Hot Packs Next Visit Focus/Plan Next Note Type Treatment Note Next Visit Plan Continue focusing on UE mobility deficits.
--- NOTE | 2023-03-23 09:48 | PT.OTN ---
Current Diagnoses Other chronic pain (03/23/23) Pain in right shoulder (03/23/23) Physical Therapy Treatment Note PT-OP-A Visit Information Start: 01/19/23 10:48 Freq: Status: Active Protocol: Document 03/23/23 08:36 AB (Rec: 03/23/23 09:46 AB [id number]) Out-Patient Physical Therapy Visit Information Visit Information Visit Type Treatment Note Visit Start Time 08:30 Visit Stop Time 09:20 Total Visit Minutes 50 Visit Number 15 Evaluation Information Evaluation Date 01/19/23 PT-OP-B Current Condition Start: 01/19/23 10:48 Freq: Status: Active Protocol: Document 03/09/23 17:05 AB (Rec: 03/09/23 17:18 AB [id number]) Current Condition History of Current Condition Onset Date 2020 History of Current Condition The pt reports that in 2020 she had an accident off a ski lift which cause her to fall directly onto her shoulder. Since then she has had mobility deficits and pain, which is constant (4-5/10), but her pain increases with reaching up and behind her back (8/10). She was unable to seek treatment consistently due to personal reasons. She is currently seeking a second opinion and different approach to what her chiropractor took to see if she can make greater gains and relief. The pt also comments she has left lateral elbow pain/tenderness when she puts lotion on that arm and when she is doing things like weeding Prior Treatments and Tests Sports chiropractor for 6 months- some improvement noted Xray in 2020 revealed mod OA in right shoulder Current Functional Impairments (Reported) Functional Limitations- Work/School Retired Functional Limitations- Recreation/ Is able to perform all ADLs, Hobbies IADLs but with increased pain. PT-OP-C Subjective Start: 01/19/23 10:48 Freq: Status: Active Protocol: Document 03/23/23 08:36 AB (Rec: 03/23/23 09:46 AB [id number]) OP-PT Subjective Patient Comments Patient Comments The pt reports she is noticing improvements in shoulder mobility, but continues with same level of pain symptoms. PT-OP-K Range of Motion Start: 01/19/23 10:48 Freq: Status: Active Protocol: Document 03/09/23 17:05 AB (Rec: 03/09/23 17:18 AB [id number]) Shoulder Goniometric Range of Motion Shoulder Right Active Testing Position Sitting Flexion 110 Abduction 100 External Rotation at 0 degrees Abduction 35 Internal Rotation Behind Back (text) T10 Comments Functional ER: T3 Pain with all motions Left Active Shoulder ROM WFL Yes Testing Position Sitting Flexion 160 Abduction 162 External Rotation at 0 degrees Abduction 60 Internal Rotation Behind Back (text) T7 Comments Functional ER: T3 PT-OP-M Strength Start: 01/19/23 10:48 Freq: Status: Active Protocol: Document 03/09/23 17:05 AB (Rec: 03/09/23 17:18 AB [id number]) Shoulder Strength Shoulder Manual Muscle Testing Right Flexion 5 Normal Extension 5 Normal Abduction (C5) 5 Normal External Rotation 5 Normal Internal Rotation 5 Normal Comments 8/10 pain with flexion Left Flexion 5 Normal Extension 5 Normal Abduction (C5) 5 Normal External Rotation 5 Normal Internal Rotation 5 Normal Elbow/Forearm Strength Elbow and Forearm Manual Muscle Testing Right Flexion (C6) 5 Normal Extension (C7) 5 Normal Comments Denies pain Left Flexion (C6) 5 Normal Extension (C7) 5 Normal Pronation 5 Normal Supination 5 Normal Comments Denies pain PT-OP-Q Treatments Start: 01/19/23 10:48 Freq: Status: Active Protocol: Document 03/23/23 08:36 AB (Rec: 03/23/23 09:46 AB [id number]) Therapeutic Exercises Supine Exercises Shldr ER AROM Supine Exercise Name AROM Side right Equipment Used 3.3# med ball Shldr flex AAROM Supine Exercise Name flexion AAROM/AROM Side right Equipment Used 3.3# med ball Reps/Minutes 3x1 min Prone Exercises push up Prone Exercise Name scap push up: prone on elbows and hips on table Reps/Minutes 2x15 Comments focus on scapular protraction and retraction Standing Exercises TB shldr exercises Standing Exercise Name TB shoulder extension Side bilateral Resistance [place] TB, blue TB Reps/Minutes 1x10, 1x10 Other Exercises 90/90 DB carry Other Exercise Name 90D shldr flex/90D elbow flex DB carry Side right Resistance 7# DB Reps/Minutes 2 laps: 1x30ft, 1x50ft Comments focus on maintaining RUE in correct position for endurance /stability Wall walks/clocks Other Exercise Name wall walks progressed to wall clocks Side bilateral Resistance [place] TB Reps/Minutes 2 laps wall walks; 2x5 wall clocks Manual Therapy Treatment Taping R shldr Body Location right shoulder Treatment Focus shoulder stability and positioning Type of Tape kinesiotape Comments 2 strips cuping the shoulder: first anchor point starts around deltoid insertion and second anchor point is around mid portion of [place] Manual Techniques PROM Type FF, ABD, ER, IR Body Position Hooklying Comments ER and IR PROM performed at 45 -90 degress of ABD PT-OP-T Assessment and Plan Start: 01/19/23 10:48 Freq: Status: Active Protocol: Document 03/23/23 08:36 AB (Rec: 03/23/23 09:46 AB [id number]) Physical Therapy Assessment Goals Seven Impairment Patient questionnaire Short Term Goal (STG) Pt's QuickDASH score to improve to 12% or better to show improving subjective report of symptoms for an improved QOL. STG Duration 4 Account Development Specialist Goal (LTG) Pt's QuickDASH score to improve to 2% or better to show improving subjective report of symptoms for an improved QOL. LTG Duration 8 Six Impairment Strength Short Term Goal (STG) Pt's gross UE MMT to improve to 4+/5 or better to show improving strength to improve ability to perform ADLs and IADLs. STG Duration 4 Account Development Specialist Goal (LTG) Pt's gross UE MMT to improve to 5/5 or better to show improving strength to improve ability to perform functional activities and begin return to recreational activities. LTG Duration 8 Five Impairment Right shoulder AROM deficits Short Term Goal (STG) Pt's right shoulder functional IR AROM to improve to L1 or better to show improving ROM to increase ability to perform ADLs and IADLs. STG Duration 4 Group Home Goal (LTG) Pt's right shoulder functional IR AROM to improve to T10 or better to show improving ROM to increase ability to perform ADLs and IADLs. LTG Duration 8 Four Impairment Right shoulder AROM deficits Short Term Goal (STG) Pt's right shoulder functional ER AROM to improve to T1 or better to show improving ROM to increase ability to perform ADLs and IADLs. STG Duration 4 Account Development Specialist Goal (LTG) Pt's right shoulder functional ER AROM to improve to T3 or better to show improving ROM to increase ability to perform ADLs and IADLs. LTG Duration 8 Three Impairment Right shoulder AROM deficits Short Term Goal (STG) Pt's right shoulder ER AROM to improve to 40 degrees or better to show improving ROM to increase ability to perform ADLs and IADLs. STG Duration 4 Account Development Specialist Goal (LTG) Pt's right shoulder ER AROM to improve to 50 degrees or better to show improving ROM to increase ability to perform ADLs and IADLs. LTG Duration 8 Two Impairment Right shoulder AROM deficits Short Term Goal (STG) Pt's right shoulder ABD AROM to improve to 120 degrees or better to show improving ROM to increase ability to perform ADLs and IADLs. STG Duration 4 Group Home Goal (LTG) Pt's right shoulder ABD AROM to improve to 150 degrees or better to show improving ROM to increase ability to perform ADLs and IADLs. LTG Duration 8 One Impairment Right shoulder AROM deficits Short Term Goal (STG) Pt's right shoulder flexion AROM to improve to 120 degrees or better to show improving ROM to increase ability to perform ADLs and IADLs. STG Duration 4 Group Home Goal (LTG) Pt's right shoulder flexion AROM to improve to 150 degrees or better to show improving ROM to increase ability to perform ADLs and IADLs. LTG Duration 8 Assessment Summary Assessment The pt was progressed by adding shoulder stability and endurance exercises including wall walks, wall clocks and 90 /90 DB carry. The pt denied pain symptoms with any of these additions, but reported popping in right shoulder when performing extension with wall clock, which could be due to muscular weakness of RTC and periscapular muscles. With right shoulder PROM, the pt shows improvements in shoulder ABD and as both are WFL and shoulder flexion is near full ROM, however, the pt continues to have significant deficits in AROM in all directions and PROM in ER, IR and ABD. Vandana' s right shoulder was also taped at the end of session to improve shoulder pain symptoms by providing some support/stability to GH joint as detailed above. The pt continues to benefit from skilled PT, focusing on improving ROM and adding RTC and periscapular strengthening in pain free ROM as indicated . Physical Therapy Plan Frequency and Duration Frequency of Treatment 2x/Week Duration of treatment (weeks) 8 Plan of Care Start Date 03/09/23 Plan of Care End Date 05/04/23 Therapeutic Interventions Therapeutic Interventions Home Exercise Program,Joint Mobilizations,Manual Therapy, Neuromuscular Re-education, Patient/Caregiver Education, Self-Care/Home Management,Soft Tissue Mobilization,Taping, Therapeutic Activities, Therapeutic Exercises Modalities Cold Pack/Ice Massage,Electric Stimulation,Hot Packs Next Visit Focus/Plan Next Note Type Treatment Note Next Visit Plan Continue focusing on UE mobility deficits.
--- NOTE | 2023-03-28 12:19 | PT.OTN ---
Current Diagnoses Other chronic pain (03/28/23) Pain in right shoulder (03/28/23) Physical Therapy Treatment Note PT-OP-A Visit Information Start: 01/19/23 10:48 Freq: Status: Active Protocol: Document 03/28/23 08:17 NM (Rec: 03/28/23 09:07 NM [id number]) Out-Patient Physical Therapy Visit Information Visit Information Visit Type Treatment Note Visit Start Time 08:15 Visit Stop Time 09:00 Total Visit Minutes 45 Visit Number 16 PT-OP-B Current Condition Start: 01/19/23 10:48 Freq: Status: Active Protocol: Document 03/09/23 17:05 AB (Rec: 03/09/23 17:18 AB [id number]) Current Condition History of Current Condition Onset Date 2020 History of Current Condition The pt reports that in 2020 she had an accident off a ski lift which cause her to fall directly onto her shoulder. Since then she has had mobility deficits and pain, which is constant (4-5/10), but her pain increases with reaching up and behind her back (8/10). She was unable to seek treatment consistently due to personal reasons. She is currently seeking a second opinion and different approach to what her chiropractor took to see if she can make greater gains and relief. The pt also comments she has left lateral elbow pain/tenderness when she puts lotion on that arm and when she is doing things like weeding Prior Treatments and Tests Sports chiropractor for 6 months- some improvement noted Xray in 2020 revealed mod OA in right shoulder Current Functional Impairments (Reported) Functional Limitations- Work/School Retired Functional Limitations- Recreation/ Is able to perform all ADLs, Hobbies IADLs but with increased pain. PT-OP-C Subjective Start: 01/19/23 10:48 Freq: Status: Active Protocol: Document 03/28/23 08:17 NM (Rec: 03/28/23 09:07 NM [id number]) OP-PT Subjective Patient Comments Patient Comments Pt reports no change in pain symptoms since last session, but states that she feels her mobility is improving overall even though it is still lacking. PT-OP-K Range of Motion Start: 01/19/23 10:48 Freq: Status: Active Protocol: Document 03/09/23 17:05 AB (Rec: 03/09/23 17:18 AB [id number]) Shoulder Goniometric Range of Motion Shoulder Right Active Testing Position Sitting Flexion 110 Abduction 100 External Rotation at 0 degrees Abduction 35 Internal Rotation Behind Back (text) T10 Comments Functional ER: T3 Pain with all motions Left Active Shoulder ROM WFL Yes Testing Position Sitting Flexion 160 Abduction 162 External Rotation at 0 degrees Abduction 60 Internal Rotation Behind Back (text) T7 Comments Functional ER: T3 PT-OP-M Strength Start: 01/19/23 10:48 Freq: Status: Active Protocol: Document 03/09/23 17:05 AB (Rec: 03/09/23 17:18 AB [id number]) Shoulder Strength Shoulder Manual Muscle Testing Right Flexion 5 Normal Extension 5 Normal Abduction (C5) 5 Normal External Rotation 5 Normal Internal Rotation 5 Normal Comments 8/10 pain with flexion Left Flexion 5 Normal Extension 5 Normal Abduction (C5) 5 Normal External Rotation 5 Normal Internal Rotation 5 Normal Elbow/Forearm Strength Elbow and Forearm Manual Muscle Testing Right Flexion (C6) 5 Normal Extension (C7) 5 Normal Comments Denies pain Left Flexion (C6) 5 Normal Extension (C7) 5 Normal Pronation 5 Normal Supination 5 Normal Comments Denies pain PT-OP-Q Treatments Start: 01/19/23 10:48 Freq: Status: Active Protocol: Document 03/28/23 08:17 NM (Rec: 03/28/23 09:07 NM [id number]) Therapeutic Exercises Supine Exercises Shldr ER AROM Supine Exercise Name AROM Side right Equipment Used 3.3# med ball Comments 5x30 Shldr flex AAROM Supine Exercise Name flexion AAROM/AROM Side right Reps/Minutes 3x1' Prone Exercises push up Prone Exercise Name scap push up: prone on elbows and hips on table Side bilateral Reps/Minutes 2x15 Comments focus on scapular protraction and retraction Sidelying Exercises Open book Side right Reps/Minutes 10 Standing Exercises TB shldr exercises Standing Exercise Name TB shoulder extension Side bilateral Resistance blue TB Reps/Minutes 2x10 TB shldr ER and IR Standing Exercise Name TB ER and IR walkouts at 0D of ABD Side right Resistance big sandy green TB Reps/Minutes 2x10 ea Other Exercises 90/90 DB carry Other Exercise Name 90D shldr flex/90D elbow flex DB carry Side right Resistance 7# DB Reps/Minutes 2x 120 ft Comments focus on maintaining RUE in correct position for endurance /stability Wall walks/clocks Other Exercise Name Wall clocks Side bilateral Resistance peach TB Reps/Minutes 2x8 Manual Therapy Treatment Manual Techniques PROM Type FF, ABD, ER, IR Body Position Hooklying Comments ER and IR PROM performed at 45 -90 degress of ABD. Pt with mod guarding, limited ROM due to pain. ER/IR most limited. PT-OP-T Assessment and Plan Start: 01/19/23 10:48 Freq: Status: Active Protocol: Document 03/28/23 08:17 NM (Rec: 03/28/23 09:07 NM [id number]) Physical Therapy Assessment Goals Seven Impairment Patient questionnaire Short Term Goal (STG) Pt's QuickDASH score to improve to 12% or better to show improving subjective report of symptoms for an improved QOL. STG Duration 4 Mcfp Goal (LTG) Pt's QuickDASH score to improve to 2% or better to show improving subjective report of symptoms for an improved QOL. LTG Duration 8 Six Impairment Strength Short Term Goal (STG) Pt's gross UE MMT to improve to 4+/5 or better to show improving strength to improve ability to perform ADLs and IADLs. STG Duration 4 Mcfp Goal (LTG) Pt's gross UE MMT to improve to 5/5 or better to show improving strength to improve ability to perform functional activities and begin return to recreational activities. LTG Duration 8 Five Impairment Right shoulder AROM deficits Short Term Goal (STG) Pt's right shoulder functional IR AROM to improve to L1 or better to show improving ROM to increase ability to perform ADLs and IADLs. STG Duration 4 Document Management Analyst Goal (LTG) Pt's right shoulder functional IR AROM to improve to T10 or better to show improving ROM to increase ability to perform ADLs and IADLs. LTG Duration 8 Four Impairment Right shoulder AROM deficits Short Term Goal (STG) Pt's right shoulder functional ER AROM to improve to T1 or better to show improving ROM to increase ability to perform ADLs and IADLs. STG Duration 4 Mcfp Goal (LTG) Pt's right shoulder functional ER AROM to improve to T3 or better to show improving ROM to increase ability to perform ADLs and IADLs. LTG Duration 8 Three Impairment Right shoulder AROM deficits Short Term Goal (STG) Pt's right shoulder ER AROM to improve to 40 degrees or better to show improving ROM to increase ability to perform ADLs and IADLs. STG Duration 4 Mcfp Goal (LTG) Pt's right shoulder ER AROM to improve to 50 degrees or better to show improving ROM to increase ability to perform ADLs and IADLs. LTG Duration 8 Two Impairment Right shoulder AROM deficits Short Term Goal (STG) Pt's right shoulder ABD AROM to improve to 120 degrees or better to show improving ROM to increase ability to perform ADLs and IADLs. STG Duration 4 Document Management Analyst Goal (LTG) Pt's right shoulder ABD AROM to improve to 150 degrees or better to show improving ROM to increase ability to perform ADLs and IADLs. LTG Duration 8 One Impairment Right shoulder AROM deficits Short Term Goal (STG) Pt's right shoulder flexion AROM to improve to 120 degrees or better to show improving ROM to increase ability to perform ADLs and IADLs. STG Duration 4 Mcfp Goal (LTG) Pt's right shoulder flexion AROM to improve to 150 degrees or better to show improving ROM to increase ability to perform ADLs and IADLs. LTG Duration 8 Assessment Summary Assessment Pt tolerated treatment fair but continues to be limited by pain and shoulder mobility, particularly in forward flexion and ER. Continued with periscapular stabilization and rotator cuff strengthening ; no reports of increased pain during exercises but she does report some non-painful clunking. During manual PROM, pt demos mobility improvements in forward flexion and abduction; however , continues to lack ROM with forward flexion and ER and is limited by pain in all directions. Added shoulder extension with theraband to HEP. Pt would benefit from continued skilled PT to address deficits in shoulder ROM, strength, and activity tolerance. Physical Therapy Plan Frequency and Duration Frequency of Treatment 2x/Week Duration of treatment (weeks) 8 Plan of Care Start Date 03/09/23 Plan of Care End Date 05/04/23 Therapeutic Interventions Therapeutic Interventions Home Exercise Program,Joint Mobilizations,Manual Therapy, Neuromuscular Re-education, Patient/Caregiver Education, Self-Care/Home Management,Soft Tissue Mobilization,Taping, Therapeutic Activities, Therapeutic Exercises Modalities Cold Pack/Ice Massage,Electric Stimulation,Hot Packs Next Visit Focus/Plan Next Note Type Treatment Note Next Visit Plan Continue focusing on UE mobility deficits, strengthening. If tolerated, joint mobilizations to mobilize shoulder capsule, improve shoulder ABD/flex/ER/ IR ROM.
--- NOTE | 2023-03-30 09:34 | PT.OTN ---
Current Diagnoses Other chronic pain (03/30/23) Pain in right shoulder (03/30/23) Physical Therapy Treatment Note PT-OP-A Visit Information Start: 01/19/23 10:48 Freq: Status: Active Protocol: Document 03/30/23 08:25 NM (Rec: 03/30/23 09:33 NM [id number]) Out-Patient Physical Therapy Visit Information Visit Information Visit Type Treatment Note Visit Start Time 08:15 Visit Stop Time 09:00 Total Visit Minutes 45 Visit Number 17 PT-OP-B Current Condition Start: 01/19/23 10:48 Freq: Status: Active Protocol: Document 03/09/23 17:05 AB (Rec: 03/09/23 17:18 AB [id number]) Current Condition History of Current Condition Onset Date 2020 History of Current Condition The pt reports that in 2020 she had an accident off a ski lift which cause her to fall directly onto her shoulder. Since then she has had mobility deficits and pain, which is constant (4-5/10), but her pain increases with reaching up and behind her back (8/10). She was unable to seek treatment consistently due to personal reasons. She is currently seeking a second opinion and different approach to what her chiropractor took to see if she can make greater gains and relief. The pt also comments she has left lateral elbow pain/tenderness when she puts lotion on that arm and when she is doing things like weeding Prior Treatments and Tests Sports chiropractor for 6 months- some improvement noted Xray in 2020 revealed mod OA in right shoulder Current Functional Impairments (Reported) Functional Limitations- Work/School Retired Functional Limitations- Recreation/ Is able to perform all ADLs, Hobbies IADLs but with increased pain. PT-OP-C Subjective Start: 01/19/23 10:48 Freq: Status: Active Protocol: Document 03/30/23 08:25 NM (Rec: 03/30/23 09:33 NM [id number]) OP-PT Subjective Patient Comments Patient Comments Pt reports no change in pain symptoms since last session. She is compliant with her exercises and has enjoyed the variation. PT-OP-K Range of Motion Start: 01/19/23 10:48 Freq: Status: Active Protocol: Document 03/09/23 17:05 AB (Rec: 03/09/23 17:18 AB [id number]) Shoulder Goniometric Range of Motion Shoulder Right Active Testing Position Sitting Flexion 110 Abduction 100 External Rotation at 0 degrees Abduction 35 Internal Rotation Behind Back (text) T10 Comments Functional ER: T3 Pain with all motions Left Active Shoulder ROM WFL Yes Testing Position Sitting Flexion 160 Abduction 162 External Rotation at 0 degrees Abduction 60 Internal Rotation Behind Back (text) T7 Comments Functional ER: T3 PT-OP-M Strength Start: 01/19/23 10:48 Freq: Status: Active Protocol: Document 03/09/23 17:05 AB (Rec: 03/09/23 17:18 AB [id number]) Shoulder Strength Shoulder Manual Muscle Testing Right Flexion 5 Normal Extension 5 Normal Abduction (C5) 5 Normal External Rotation 5 Normal Internal Rotation 5 Normal Comments 8/10 pain with flexion Left Flexion 5 Normal Extension 5 Normal Abduction (C5) 5 Normal External Rotation 5 Normal Internal Rotation 5 Normal Elbow/Forearm Strength Elbow and Forearm Manual Muscle Testing Right Flexion (C6) 5 Normal Extension (C7) 5 Normal Comments Denies pain Left Flexion (C6) 5 Normal Extension (C7) 5 Normal Pronation 5 Normal Supination 5 Normal Comments Denies pain PT-OP-Q Treatments Start: 01/19/23 10:48 Freq: Status: Active Protocol: Document 03/30/23 08:25 NM (Rec: 03/30/23 09:33 NM [id number]) Therapeutic Exercises Standing Exercises Scaption Standing Exercise Name goal: strengthen max scap- humeral mechanics in pain free range w/o UT Side bilateral Resistance 1 # db Equipment Used mirror for vc to prevent shldr hike, back against wall Reps/Minutes 2x10 Comments up to 90deg shldr flex to prevent UT overactivation Scap Wall push-up Standing Exercise Name arms fwd flex just below 90 deg, perform scap protract Side bilateral Reps/Minutes 2x15 Comments reports feels more effective than prone on elbows version Banded ER + fwd flex Standing Exercise Name up to 90 deg fwd flex without UT overactivation Side bilateral Resistance level 2 tb Equipment Used band around forearms Reps/Minutes 2x15 Comments tolerates well, able to reach 90deg without shoulder hike Shldr FLEX AAROM Side right Equipment Used dowel Reps/Minutes 10x5 IR strap stretch Standing Exercise Name arm behind back Side right Equipment Used towel Reps/Minutes 2x30 Comments cue for gentle stretch Shldr ER AAROM Side right Equipment Used dowel Reps/Minutes 10x5 Shldr ABD AAROM Side right Equipment Used dowel Reps/Minutes 10x5 Manual Therapy Treatment Joint Mobilizations R GH Jt Direction A-P, P-A, Sup-Inf Grade III Body Position Supine Reps/Duration 5x30 Comments To inc ER: grade III A-P mob of ant prox humerus while move into shldr ER, towel to block elbow To inc IR: positioned in prone , towel to block scap ant, grade III P-A mob of post prox humerus with move into IR To inc abd: grade III S-I Manual Techniques PROM Type FF Body Position Hooklying Comments PROM up to ~150 dg without pain, gentle PROM stretch further 5x30 PT-OP-T Assessment and Plan Start: 01/19/23 10:48 Freq: Status: Active Protocol: Document 03/30/23 08:25 NM (Rec: 03/30/23 09:33 NM [id number]) Physical Therapy Assessment Goals Seven Impairment Patient questionnaire Short Term Goal (STG) Pt's QuickDASH score to improve to 12% or better to show improving subjective report of symptoms for an improved QOL. STG Duration 4 Chief Port Director Goal (LTG) Pt's QuickDASH score to improve to 2% or better to show improving subjective report of symptoms for an improved QOL. LTG Duration 8 Six Impairment Strength Short Term Goal (STG) Pt's gross UE MMT to improve to 4+/5 or better to show improving strength to improve ability to perform ADLs and IADLs. STG Duration 4 Chief Port Director Goal (LTG) Pt's gross UE MMT to improve to 5/5 or better to show improving strength to improve ability to perform functional activities and begin return to recreational activities. LTG Duration 8 Five Impairment Right shoulder AROM deficits Short Term Goal (STG) Pt's right shoulder functional IR AROM to improve to L1 or better to show improving ROM to increase ability to perform ADLs and IADLs. STG Duration 4 Chief Port Director Goal (LTG) Pt's right shoulder functional IR AROM to improve to T10 or better to show improving ROM to increase ability to perform ADLs and IADLs. LTG Duration 8 Four Impairment Right shoulder AROM deficits Short Term Goal (STG) Pt's right shoulder functional ER AROM to improve to T1 or better to show improving ROM to increase ability to perform ADLs and IADLs. STG Duration 4 Chief Port Director Goal (LTG) Pt's right shoulder functional ER AROM to improve to T3 or better to show improving ROM to increase ability to perform ADLs and IADLs. LTG Duration 8 Three Impairment Right shoulder AROM deficits Short Term Goal (STG) Pt's right shoulder ER AROM to improve to 40 degrees or better to show improving ROM to increase ability to perform ADLs and IADLs. STG Duration 4 Fci Goal (LTG) Pt's right shoulder ER AROM to improve to 50 degrees or better to show improving ROM to increase ability to perform ADLs and IADLs. LTG Duration 8 Two Impairment Right shoulder AROM deficits Short Term Goal (STG) Pt's right shoulder ABD AROM to improve to 120 degrees or better to show improving ROM to increase ability to perform ADLs and IADLs. STG Duration 4 Fci Goal (LTG) Pt's right shoulder ABD AROM to improve to 150 degrees or better to show improving ROM to increase ability to perform ADLs and IADLs. LTG Duration 8 One Impairment Right shoulder AROM deficits Short Term Goal (STG) Pt's right shoulder flexion AROM to improve to 120 degrees or better to show improving ROM to increase ability to perform ADLs and IADLs. STG Duration 4 Fci Goal (LTG) Pt's right shoulder flexion AROM to improve to 150 degrees or better to show improving ROM to increase ability to perform ADLs and IADLs. LTG Duration 8 Assessment Summary Assessment Pt tolerated treatment well and responds favorably to exercises targeting periscapular activation. Elevation exercises performed within a range up to 90 dg fwd flex in order to limit stress placed on rotator cuff within ROM limitations. Within this range, pt able to perform fwd flex exercises without overactivation of upper trap. Returned to more capsular stretching exercises today and spent greater time on manual treatment in order to emphasize mobility due to pt's overall good shldr strength and home exercise activity. Pt tolerated grade III mobilizations well and demonstrated observable improvement in ROM and pain relief. Will continue with capsular stretching and scapular strengthening/ stabilization within available range in next treatments. Pt would benefit from skilled PT to address impairments in ROM, periscapular strength and stabilization, and to improve activity tolerance. Physical Therapy Plan Frequency and Duration Frequency of Treatment 2x/Week Duration of treatment (weeks) 8 Plan of Care Start Date 03/09/23 Plan of Care End Date 05/04/23 Therapeutic Interventions Therapeutic Interventions Home Exercise Program,Joint Mobilizations,Manual Therapy, Neuromuscular Re-education, Patient/Caregiver Education, Self-Care/Home Management,Soft Tissue Mobilization,Taping, Therapeutic Activities, Therapeutic Exercises Modalities Cold Pack/Ice Massage,Electric Stimulation,Hot Packs Next Visit Focus/Plan Next Note Type Treatment Note Next Visit Plan Continue with capsular stretching (piotr post capsule), mobilizations of R shldr, and scapular/periscapular strengthening. Progress as tolerated. Determine if PN soon
--- NOTE | 2023-04-04 11:17 | PT.OTN ---
Current Diagnoses Other chronic pain (04/04/23) Pain in right shoulder (04/04/23) Physical Therapy Treatment Note PT-OP-A Visit Information Start: 01/19/23 10:48 Freq: Status: Active Protocol: Document 04/04/23 08:20 NM (Rec: 04/04/23 09:04 NM [id number]) Out-Patient Physical Therapy Visit Information Visit Information Visit Type Treatment Note Visit Start Time 08:15 Visit Stop Time 09:00 Total Visit Minutes 45 Visit Number 18 PT-OP-B Current Condition Start: 01/19/23 10:48 Freq: Status: Active Protocol: Document 03/09/23 17:05 AB (Rec: 03/09/23 17:18 AB [id number]) Current Condition History of Current Condition Onset Date 2020 History of Current Condition The pt reports that in 2020 she had an accident off a ski lift which cause her to fall directly onto her shoulder. Since then she has had mobility deficits and pain, which is constant (4-5/10), but her pain increases with reaching up and behind her back (8/10). She was unable to seek treatment consistently due to personal reasons. She is currently seeking a second opinion and different approach to what her chiropractor took to see if she can make greater gains and relief. The pt also comments she has left lateral elbow pain/tenderness when she puts lotion on that arm and when she is doing things like weeding Prior Treatments and Tests Sports chiropractor for 6 months- some improvement noted Xray in 2020 revealed mod OA in right shoulder Current Functional Impairments (Reported) Functional Limitations- Work/School Retired Functional Limitations- Recreation/ Is able to perform all ADLs, Hobbies IADLs but with increased pain. PT-OP-C Subjective Start: 01/19/23 10:48 Freq: Status: Active Protocol: Document 04/04/23 08:20 NM (Rec: 04/04/23 09:04 NM [id number]) OP-PT Subjective Patient Comments Patient Comments Pt reports a deep pain in her shoulder today but no other symptoms. She is compliant with her exercises. PT-OP-K Range of Motion Start: 01/19/23 10:48 Freq: Status: Active Protocol: Document 03/09/23 17:05 AB (Rec: 03/09/23 17:18 AB [id number]) Shoulder Goniometric Range of Motion Shoulder Right Active Testing Position Sitting Flexion 110 Abduction 100 External Rotation at 0 degrees Abduction 35 Internal Rotation Behind Back (text) T10 Comments Functional ER: T3 Pain with all motions Left Active Shoulder ROM WFL Yes Testing Position Sitting Flexion 160 Abduction 162 External Rotation at 0 degrees Abduction 60 Internal Rotation Behind Back (text) T7 Comments Functional ER: T3 PT-OP-M Strength Start: 01/19/23 10:48 Freq: Status: Active Protocol: Document 03/09/23 17:05 AB (Rec: 03/09/23 17:18 AB [id number]) Shoulder Strength Shoulder Manual Muscle Testing Right Flexion 5 Normal Extension 5 Normal Abduction (C5) 5 Normal External Rotation 5 Normal Internal Rotation 5 Normal Comments 8/10 pain with flexion Left Flexion 5 Normal Extension 5 Normal Abduction (C5) 5 Normal External Rotation 5 Normal Internal Rotation 5 Normal Elbow/Forearm Strength Elbow and Forearm Manual Muscle Testing Right Flexion (C6) 5 Normal Extension (C7) 5 Normal Comments Denies pain Left Flexion (C6) 5 Normal Extension (C7) 5 Normal Pronation 5 Normal Supination 5 Normal Comments Denies pain PT-OP-Q Treatments Start: 01/19/23 10:48 Freq: Status: Active Protocol: Document 04/04/23 08:20 NM (Rec: 04/04/23 09:04 NM [id number]) Therapeutic Exercises Sidelying Exercises ER Resistance 2.2# ball Equipment Used towel under elbow Reps/Minutes x8 Comments periscap strengthening Sitting Exercises Pulleys Sitting Exercise Name 1. abd, 2. fwd flex Side bilateral Reps/Minutes 10x5 ea Standing Exercises pec stretch Side right Equipment Used wall corner Reps/Minutes 2x30 Comments 90 deg ER Scap Wall push-up Side bilateral Reps/Minutes 3x12 Serratus wall press Side bilateral Reps/Minutes 10x3 Comments good scap protraction IR strap stretch Standing Exercise Name arm behind back Side right Equipment Used towel Reps/Minutes 2x30 Shldr ER AAROM Side right Equipment Used dowel Reps/Minutes 15x5 Other Exercises Wall walks/clocks Other Exercise Name wall clocks Side bilateral Resistance orange tb Reps/Minutes 3x3 Manual Therapy Treatment Joint Mobilizations R scapulothoracic Direction elev/dep, upwd/dwd rot Grade III Reps/Duration 4x30 ea R GH Jt Direction A-P, P-A, Sup-inf Grade III Body Position Supine Reps/Duration 6x30 ea Comments To inc ER: grade III A-P mob of ant prox humerus while move into shldr ER, towel to block elbow To inc IR: positioned in prone , towel to block scap ant, grade III P-A mob of post prox humerus with move into IR To inc abd: grade III S-I PT-OP-T Assessment and Plan Start: 01/19/23 10:48 Freq: Status: Active Protocol: Document 04/04/23 08:20 NM (Rec: 04/04/23 09:04 NM [id number]) Physical Therapy Assessment Goals Seven Impairment Patient questionnaire Short Term Goal (STG) Pt's QuickDASH score to improve to 12% or better to show improving subjective report of symptoms for an improved QOL. STG Duration 4 Chcf Goal (LTG) Pt's QuickDASH score to improve to 2% or better to show improving subjective report of symptoms for an improved QOL. LTG Duration 8 Six Impairment Strength Short Term Goal (STG) Pt's gross UE MMT to improve to 4+/5 or better to show improving strength to improve ability to perform ADLs and IADLs. STG Duration 4 Chcf Goal (LTG) Pt's gross UE MMT to improve to 5/5 or better to show improving strength to improve ability to perform functional activities and begin return to recreational activities. LTG Duration 8 Five Impairment Right shoulder AROM deficits Short Term Goal (STG) Pt's right shoulder functional IR AROM to improve to L1 or better to show improving ROM to increase ability to perform ADLs and IADLs. STG Duration 4 Chcf Goal (LTG) Pt's right shoulder functional IR AROM to improve to T10 or better to show improving ROM to increase ability to perform ADLs and IADLs. LTG Duration 8 Four Impairment Right shoulder AROM deficits Short Term Goal (STG) Pt's right shoulder functional ER AROM to improve to T1 or better to show improving ROM to increase ability to perform ADLs and IADLs. STG Duration 4 Chcf Goal (LTG) Pt's right shoulder functional ER AROM to improve to T3 or better to show improving ROM to increase ability to perform ADLs and IADLs. LTG Duration 8 Three Impairment Right shoulder AROM deficits Short Term Goal (STG) Pt's right shoulder ER AROM to improve to 40 degrees or better to show improving ROM to increase ability to perform ADLs and IADLs. STG Duration 4 Chcf Goal (LTG) Pt's right shoulder ER AROM to improve to 50 degrees or better to show improving ROM to increase ability to perform ADLs and IADLs. LTG Duration 8 Two Impairment Right shoulder AROM deficits Short Term Goal (STG) Pt's right shoulder ABD AROM to improve to 120 degrees or better to show improving ROM to increase ability to perform ADLs and IADLs. STG Duration 4 Chcf Goal (LTG) Pt's right shoulder ABD AROM to improve to 150 degrees or better to show improving ROM to increase ability to perform ADLs and IADLs. LTG Duration 8 One Impairment Right shoulder AROM deficits Short Term Goal (STG) Pt's right shoulder flexion AROM to improve to 120 degrees or better to show improving ROM to increase ability to perform ADLs and IADLs. STG Duration 4 Chcf Goal (LTG) Pt's right shoulder flexion AROM to improve to 150 degrees or better to show improving ROM to increase ability to perform ADLs and IADLs. LTG Duration 8 Assessment Summary Assessment Pt tolerated treatment well with an improvement in shoulder pain from beginning of session. Tmt focus on gentle shoulder AAROM and periscapular strengthening due to shoulder pain today. Manual tmt emphasis on improving capsular ROM; continues to be limited in shoulder ER/IR. Will continue with improving R shoulder AROM within available range and continue with periscapular/ shoulder strenghtening within that range. Pt would benefit from skilled PT to address mobility and strength deficits . Physical Therapy Plan Frequency and Duration Frequency of Treatment 2x/Week Duration of treatment (weeks) 8 Plan of Care Start Date 03/09/23 Plan of Care End Date 05/04/23 Therapeutic Interventions Therapeutic Interventions Home Exercise Program,Joint Mobilizations,Manual Therapy, Neuromuscular Re-education, Patient/Caregiver Education, Self-Care/Home Management,Soft Tissue Mobilization,Taping, Therapeutic Activities, Therapeutic Exercises Modalities Cold Pack/Ice Massage,Electric Stimulation,Hot Packs Next Visit Focus/Plan Next Note Type Treatment Note Next Visit Plan Continue with capsular stretching, mobilizations, and scapular/periscapular strengthening. Trial the IR stretch with ADD next time. Will need PN soon
--- NOTE | 2023-04-11 12:05 | PT.OTN ---
Current Diagnoses Other chronic pain (04/11/23) Pain in right shoulder (04/11/23) Physical Therapy Treatment Note PT-OP-A Visit Information Start: 01/19/23 10:48 Freq: Status: Active Protocol: Document 04/11/23 08:33 NM (Rec: 04/11/23 09:06 NM [id number]) Out-Patient Physical Therapy Visit Information Visit Information Visit Type Treatment Note Visit Note Late to appt Visit Start Time 08:25 Visit Stop Time 09:00 Total Visit Minutes 35 Visit Number 19 PT-OP-B Current Condition Start: 01/19/23 10:48 Freq: Status: Active Protocol: Document 03/09/23 17:05 AB (Rec: 03/09/23 17:18 AB [id number]) Current Condition History of Current Condition Onset Date 2020 History of Current Condition The pt reports that in 2020 she had an accident off a ski lift which cause her to fall directly onto her shoulder. Since then she has had mobility deficits and pain, which is constant (4-5/10), but her pain increases with reaching up and behind her back (8/10). She was unable to seek treatment consistently due to personal reasons. She is currently seeking a second opinion and different approach to what her chiropractor took to see if she can make greater gains and relief. The pt also comments she has left lateral elbow pain/tenderness when she puts lotion on that arm and when she is doing things like weeding Prior Treatments and Tests Sports chiropractor for 6 months- some improvement noted Xray in 2020 revealed mod OA in right shoulder Current Functional Impairments (Reported) Functional Limitations- Work/School Retired Functional Limitations- Recreation/ Is able to perform all ADLs, Hobbies IADLs but with increased pain. PT-OP-C Subjective Start: 01/19/23 10:48 Freq: Status: Active Protocol: Document 04/11/23 08:33 NM (Rec: 04/11/23 09:06 NM [id number]) OP-PT Subjective Patient Comments Patient Comments Pt reports no change in symptoms since her last visit. She states that she is thinking about a referral to an orthopedist. She is compliant with her exercises. PT-OP-K Range of Motion Start: 01/19/23 10:48 Freq: Status: Active Protocol: Document 03/09/23 17:05 AB (Rec: 03/09/23 17:18 AB [id number]) Shoulder Goniometric Range of Motion Shoulder Right Active Testing Position Sitting Flexion 110 Abduction 100 External Rotation at 0 degrees Abduction 35 Internal Rotation Behind Back (text) T10 Comments Functional ER: T3 Pain with all motions Left Active Shoulder ROM WFL Yes Testing Position Sitting Flexion 160 Abduction 162 External Rotation at 0 degrees Abduction 60 Internal Rotation Behind Back (text) T7 Comments Functional ER: T3 PT-OP-M Strength Start: 01/19/23 10:48 Freq: Status: Active Protocol: Document 03/09/23 17:05 AB (Rec: 03/09/23 17:18 AB [id number]) Shoulder Strength Shoulder Manual Muscle Testing Right Flexion 5 Normal Extension 5 Normal Abduction (C5) 5 Normal External Rotation 5 Normal Internal Rotation 5 Normal Comments 8/10 pain with flexion Left Flexion 5 Normal Extension 5 Normal Abduction (C5) 5 Normal External Rotation 5 Normal Internal Rotation 5 Normal Elbow/Forearm Strength Elbow and Forearm Manual Muscle Testing Right Flexion (C6) 5 Normal Extension (C7) 5 Normal Comments Denies pain Left Flexion (C6) 5 Normal Extension (C7) 5 Normal Pronation 5 Normal Supination 5 Normal Comments Denies pain PT-OP-Q Treatments Start: 01/19/23 10:48 Freq: Status: Active Protocol: Document 04/11/23 08:33 NM (Rec: 04/11/23 09:06 NM [id number]) Therapeutic Exercises Sidelying Exercises Horziontal ABD Sidelying Exercise Name with arm in ER; to facilitate improved scap-humeral rhythm and improve elev Side right Resistance none Reps/Minutes 1x10 Comments PT provide manual inf humeral glide during AROM + assist scap upwd rot Standing Exercises pec stretch Standing Exercise Name pec major and pec minor within available ROM Side right Equipment Used wall corner Reps/Minutes 2x30 Comments 90 deg abd/ER, 45 deg abd Banded ER + fwd flex Standing Exercise Name up to ~90 deg fwd flex Side bilateral Resistance green tb (lvl 3) Equipment Used tb around forearms Reps/Minutes 2x8 Comments Demos shaking with fatigue Shldr FLEX AAROM Side right Equipment Used dowel Reps/Minutes 5x15 Comments cues to limit UT overactivation IR strap stretch Standing Exercise Name arm behind back + ADD Side right Equipment Used dowel today behind back Reps/Minutes 2x30 Comments for more aggressive stretch into IR today Shldr ER AAROM Side right Equipment Used dowel Reps/Minutes 15x5 Shldr ABD AAROM Side right Equipment Used dowel Reps/Minutes 5x10 Comments feels good, most helpful stretch Manual Therapy Treatment Joint Mobilizations R scapulothoracic Direction elev/dep, upwd/dwd rot Grade III Reps/Duration 4x30 ea Comments Limited protraction/retraction and upward elevation glide today. R GH Jt Direction A-P, Sup-inf Grade III Body Position Supine Reps/Duration 6x30 ea Comments To inc ER: grade III A-P mob of ant prox humerus while move into shldr ER, towel to block elbow To inc abd: grade III S-I Manual Techniques PROM Type Fwd flex, horizontal ABD, IR+ hor ADD Body Position Hooklying Comments Fwd flex: PROM up to ~150 deg without pain IR + hor ADD: passively moving arm under table; demos improved ROM with this stretch and pt reports my shoulder feels balanced PT-OP-T Assessment and Plan Start: 01/19/23 10:48 Freq: Status: Active Protocol: Document 04/11/23 08:33 NM (Rec: 04/11/23 09:06 NM [id number]) Physical Therapy Assessment Rehab Potential Rehabilitation Potential Good Evaluation Complexity Number of Personal Factors/Comorbidities 1-2 Number of Body Systems Impaired 1-2 Clinical Presentation at Evaluation Stable Impairments Impairments Functional Activities, Functional Mobility,Pain,ROM, Soft Tissue Mobility,Strength Goals Seven Impairment Patient questionnaire Short Term Goal (STG) Pt's QuickDASH score to improve to 12% or better to show improving subjective report of symptoms for an improved QOL. STG Duration 4 Ball Assembler Goal (LTG) Pt's QuickDASH score to improve to 2% or better to show improving subjective report of symptoms for an improved QOL. LTG Duration 8 Six Impairment Strength Short Term Goal (STG) Pt's gross UE MMT to improve to 4+/5 or better to show improving strength to improve ability to perform ADLs and IADLs. STG Duration 4 Snf Goal (LTG) Pt's gross UE MMT to improve to 5/5 or better to show improving strength to improve ability to perform functional activities and begin return to recreational activities. LTG Duration 8 Five Impairment Right shoulder AROM deficits Short Term Goal (STG) Pt's right shoulder functional IR AROM to improve to L1 or better to show improving ROM to increase ability to perform ADLs and IADLs. STG Duration 4 Snf Goal (LTG) Pt's right shoulder functional IR AROM to improve to T10 or better to show improving ROM to increase ability to perform ADLs and IADLs. LTG Duration 8 Four Impairment Right shoulder AROM deficits Short Term Goal (STG) Pt's right shoulder functional ER AROM to improve to T1 or better to show improving ROM to increase ability to perform ADLs and IADLs. STG Duration 4 Ball Assembler Goal (LTG) Pt's right shoulder functional ER AROM to improve to T3 or better to show improving ROM to increase ability to perform ADLs and IADLs. LTG Duration 8 Three Impairment Right shoulder AROM deficits Short Term Goal (STG) Pt's right shoulder ER AROM to improve to 40 degrees or better to show improving ROM to increase ability to perform ADLs and IADLs. STG Duration 4 Ball Assembler Goal (LTG) Pt's right shoulder ER AROM to improve to 50 degrees or better to show improving ROM to increase ability to perform ADLs and IADLs. LTG Duration 8 Two Impairment Right shoulder AROM deficits Short Term Goal (STG) Pt's right shoulder ABD AROM to improve to 120 degrees or better to show improving ROM to increase ability to perform ADLs and IADLs. STG Duration 4 Snf Goal (LTG) Pt's right shoulder ABD AROM to improve to 150 degrees or better to show improving ROM to increase ability to perform ADLs and IADLs. LTG Duration 8 One Impairment Right shoulder AROM deficits Short Term Goal (STG) Pt's right shoulder flexion AROM to improve to 120 degrees or better to show improving ROM to increase ability to perform ADLs and IADLs. STG Duration 4 Ball Assembler Goal (LTG) Pt's right shoulder flexion AROM to improve to 150 degrees or better to show improving ROM to increase ability to perform ADLs and IADLs. LTG Duration 8 Progress Towards Goals Progress Towards Goals Progressing Toward Goals Assessment Summary Assessment Pt tolerated treatment well with shorter session time because late. Tmt focus today on R shoulder mobility via stretching and manual therapy. Pt continues to be primarily limited in shoulder ER/IR and compensates for the limited ROM with shoulder extension/ scapular retraction. Initiated more targeted shoulder IR stretches with dowel and during manual tmt. She demonstrates observable improvements in R shoulder mobility after manual tmt. Will continue to progress mobility and strengthening as tolerated within the available ROM to prevent possibility of further injury. Future treatment sessions will emphasize limiting compensations to decrease stress on her back. Pt mentioned today that she would be willing to see an orthopedist about further treatment pending outcome of upcoming visits. Pt would benefit from skilled PT to address mobility and strength deficits. Physical Therapy Plan Frequency and Duration Frequency of Treatment 2x/Week Duration of treatment (weeks) 8 Plan of Care Start Date 03/09/23 Plan of Care End Date 05/04/23 Therapeutic Interventions Therapeutic Interventions Home Exercise Program,Joint Mobilizations,Manual Therapy, Neuromuscular Re-education, Patient/Caregiver Education, Self-Care/Home Management,Soft Tissue Mobilization,Taping, Therapeutic Activities, Therapeutic Exercises Modalities Cold Pack/Ice Massage,Electric Stimulation,Hot Packs Next Visit Focus/Plan Next Note Type Treatment Note Next Visit Plan Continue with capsular stretching, mobilizations, and scapular/periscapular strengthening. Cont IR stretch with ADD next time. Strengthen within available range. Discuss with pt about upcoming plan to determine if she wants a referral for ortho or to continue PT to regain mobility.
--- NOTE | 2023-04-13 12:34 | PT.OTN ---
Current Diagnoses Other chronic pain (04/13/23) Pain in right shoulder (04/13/23) Physical Therapy Treatment Note PT-OP-A Visit Information Start: 01/19/23 10:48 Freq: Status: Active Protocol: Document 04/13/23 08:25 NM (Rec: 04/13/23 09:00 NM [id number]) Out-Patient Physical Therapy Visit Information Visit Information Visit Type Treatment Note Visit Start Time 08:15 Visit Stop Time 09:00 Total Visit Minutes 45 Visit Number 20 PT-OP-B Current Condition Start: 01/19/23 10:48 Freq: Status: Active Protocol: Document 03/09/23 17:05 AB (Rec: 03/09/23 17:18 AB [id number]) Current Condition History of Current Condition Onset Date 2020 History of Current Condition The pt reports that in 2020 she had an accident off a ski lift which cause her to fall directly onto her shoulder. Since then she has had mobility deficits and pain, which is constant (4-5/10), but her pain increases with reaching up and behind her back (8/10). She was unable to seek treatment consistently due to personal reasons. She is currently seeking a second opinion and different approach to what her chiropractor took to see if she can make greater gains and relief. The pt also comments she has left lateral elbow pain/tenderness when she puts lotion on that arm and when she is doing things like weeding Prior Treatments and Tests Sports chiropractor for 6 months- some improvement noted Xray in 2020 revealed mod OA in right shoulder Current Functional Impairments (Reported) Functional Limitations- Work/School Retired Functional Limitations- Recreation/ Is able to perform all ADLs, Hobbies IADLs but with increased pain. PT-OP-C Subjective Start: 01/19/23 10:48 Freq: Status: Active Protocol: Document 04/13/23 08:25 NM (Rec: 04/13/23 09:00 NM [id number]) OP-PT Subjective Patient Comments Patient Comments Pt reports no change in symptoms since last visit. She has about 4 more visits left, and she wants a referral to an ortho MD. PT-OP-K Range of Motion Start: 01/19/23 10:48 Freq: Status: Active Protocol: Document 03/09/23 17:05 AB (Rec: 03/09/23 17:18 AB [id number]) Shoulder Goniometric Range of Motion Shoulder Right Active Testing Position Sitting Flexion 110 Abduction 100 External Rotation at 0 degrees Abduction 35 Internal Rotation Behind Back (text) T10 Comments Functional ER: T3 Pain with all motions Left Active Shoulder ROM WFL Yes Testing Position Sitting Flexion 160 Abduction 162 External Rotation at 0 degrees Abduction 60 Internal Rotation Behind Back (text) T7 Comments Functional ER: T3 PT-OP-M Strength Start: 01/19/23 10:48 Freq: Status: Active Protocol: Document 03/09/23 17:05 AB (Rec: 03/09/23 17:18 AB [id number]) Shoulder Strength Shoulder Manual Muscle Testing Right Flexion 5 Normal Extension 5 Normal Abduction (C5) 5 Normal External Rotation 5 Normal Internal Rotation 5 Normal Comments 8/10 pain with flexion Left Flexion 5 Normal Extension 5 Normal Abduction (C5) 5 Normal External Rotation 5 Normal Internal Rotation 5 Normal Elbow/Forearm Strength Elbow and Forearm Manual Muscle Testing Right Flexion (C6) 5 Normal Extension (C7) 5 Normal Comments Denies pain Left Flexion (C6) 5 Normal Extension (C7) 5 Normal Pronation 5 Normal Supination 5 Normal Comments Denies pain PT-OP-Q Treatments Start: 01/19/23 10:48 Freq: Status: Active Protocol: Document 04/13/23 08:25 NM (Rec: 04/13/23 09:00 NM [id number]) Therapeutic Exercises Supine Exercises Shldr flex AAROM Side bilateral Resistance 4# wrapped around dowel Reps/Minutes 2x30 Comments gravity assisted shoulder flex , long duration Sitting Exercises Pulleys Sitting Exercise Name 1. fwd flex, 2. scaption, 3. abd Side right Reps/Minutes 10x5 Standing Exercises pec stretch Standing Exercise Name pec major and pec minor within available ROM Side right Equipment Used wall corner Reps/Minutes 2x30 Comments 90 deg abd/ER, 45 deg abd Scap Wall push-up Standing Exercise Name progressed to incline at table Side bilateral Reps/Minutes 2x12 Comments arms about 90 deg, wiht scap protraction at end IR strap stretch Standing Exercise Name arm behind back + ADD Side right Equipment Used towel Reps/Minutes 2x30 Comments for more aggressive stretch into IR today Shldr ER AAROM Side right Equipment Used dowel Reps/Minutes 10x5 Other Exercises Wall walks/clocks Other Exercise Name Wall walks: 1. 90 deg elev, 2. 110 deg elev., 3. 45 deg elev Side bilateral Resistance orange tb Reps/Minutes 3x10 ft ea Comments progress band next time Manual Therapy Treatment Joint Mobilizations R GH Jt Direction A-P, Sup-inf Grade III Body Position Supine Reps/Duration 4x30 Comments To inc ER: grade III A-P mob of ant prox humerus while move into shldr ER, towel to block elbow To inc abd: grade III S-I Manual Techniques PROM Type Fwd flex, horizontal ABD, IR+ hor ADD Body Position Hooklying Comments Fwd flex: PROM up to ~150 deg without pain IR + hor ADD: passively moving arm under table; demos improved ROM with this stretch and pt reports my shoulder feels balanced PT-OP-T Assessment and Plan Start: 01/19/23 10:48 Freq: Status: Active Protocol: Document 04/13/23 08:25 NM (Rec: 04/13/23 09:00 NM [id number]) Physical Therapy Assessment Rehab Potential Rehabilitation Potential Good Evaluation Complexity Number of Personal Factors/Comorbidities 1-2 Number of Body Systems Impaired 1-2 Clinical Presentation at Evaluation Stable Impairments Impairments Functional Activities, Functional Mobility,Pain,ROM, Soft Tissue Mobility,Strength Goals Seven Impairment Patient questionnaire Short Term Goal (STG) Pt's QuickDASH score to improve to 12% or better to show improving subjective report of symptoms for an improved QOL. STG Duration 4 Gelatin Plant Supervisor Goal (LTG) Pt's QuickDASH score to improve to 2% or better to show improving subjective report of symptoms for an improved QOL. LTG Duration 8 Six Impairment Strength Short Term Goal (STG) Pt's gross UE MMT to improve to 4+/5 or better to show improving strength to improve ability to perform ADLs and IADLs. STG Duration 4 Assisted Goal (LTG) Pt's gross UE MMT to improve to 5/5 or better to show improving strength to improve ability to perform functional activities and begin return to recreational activities. LTG Duration 8 Five Impairment Right shoulder AROM deficits Short Term Goal (STG) Pt's right shoulder functional IR AROM to improve to L1 or better to show improving ROM to increase ability to perform ADLs and IADLs. STG Duration 4 Gelatin Plant Supervisor Goal (LTG) Pt's right shoulder functional IR AROM to improve to T10 or better to show improving ROM to increase ability to perform ADLs and IADLs. LTG Duration 8 Four Impairment Right shoulder AROM deficits Short Term Goal (STG) Pt's right shoulder functional ER AROM to improve to T1 or better to show improving ROM to increase ability to perform ADLs and IADLs. STG Duration 4 Assisted Goal (LTG) Pt's right shoulder functional ER AROM to improve to T3 or better to show improving ROM to increase ability to perform ADLs and IADLs. LTG Duration 8 Three Impairment Right shoulder AROM deficits Short Term Goal (STG) Pt's right shoulder ER AROM to improve to 40 degrees or better to show improving ROM to increase ability to perform ADLs and IADLs. STG Duration 4 Assisted Goal (LTG) Pt's right shoulder ER AROM to improve to 50 degrees or better to show improving ROM to increase ability to perform ADLs and IADLs. LTG Duration 8 Two Impairment Right shoulder AROM deficits Short Term Goal (STG) Pt's right shoulder ABD AROM to improve to 120 degrees or better to show improving ROM to increase ability to perform ADLs and IADLs. STG Duration 4 Assisted Goal (LTG) Pt's right shoulder ABD AROM to improve to 150 degrees or better to show improving ROM to increase ability to perform ADLs and IADLs. LTG Duration 8 One Impairment Right shoulder AROM deficits Short Term Goal (STG) Pt's right shoulder flexion AROM to improve to 120 degrees or better to show improving ROM to increase ability to perform ADLs and IADLs. STG Duration 4 Gelatin Plant Supervisor Goal (LTG) Pt's right shoulder flexion AROM to improve to 150 degrees or better to show improving ROM to increase ability to perform ADLs and IADLs. LTG Duration 8 Progress Towards Goals Progress Towards Goals Progressing Toward Goals Assessment Summary Assessment Pt tolerated treatment well with good scapular motion/ strength. Tmt focus today on encouraging mobility, periscapular strengthening, and progressing resisted exercises. Pt continues to lack R shoulder mobility, piotr ER/IR; she is attempting to compensate more frequently with thoracic extension and rotation. Manual tmt emphasizing mobilizing the R shoulder capsule and improving scapulo/humeral mechanics. Pt would benefit from skilled PT to address R shoulder mobility deficits, promote periscapular and rotator cuff strength, and to decrease pain to improve QOL and activity tolerance. Physical Therapy Plan Frequency and Duration Frequency of Treatment 2x/Week Duration of treatment (weeks) 8 Plan of Care Start Date 03/09/23 Plan of Care End Date 05/04/23 Therapeutic Interventions Therapeutic Interventions Home Exercise Program,Joint Mobilizations,Manual Therapy, Neuromuscular Re-education, Patient/Caregiver Education, Self-Care/Home Management,Soft Tissue Mobilization,Taping, Therapeutic Activities, Therapeutic Exercises Modalities Cold Pack/Ice Massage,Electric Stimulation,Hot Packs Next Visit Focus/Plan Next Note Type Progress Note Next Visit Plan Continue with capsular stretching, mobilizations, and scapular/periscapular strengthening. Cont IR stretch with ADD next time. Strengthen within available range. Discuss with pt about upcoming plan to determine if she wants a referral for ortho or to continue PT to regain mobility.
--- NOTE | 2023-04-18 08:32 | PT.OTN ---
Current Diagnoses Other chronic pain (04/18/23) Pain in right shoulder (04/18/23) Physical Therapy Treatment Note PT-OP-A Visit Information Start: 01/19/23 10:48 Freq: Status: Active Protocol: Document 04/18/23 08:32 NM (Rec: 04/18/23 09:04 NM [id number]) Out-Patient Physical Therapy Visit Information Visit Information Visit Type Treatment Note Visit Note PN today Visit Start Time 08:15 Visit Stop Time 09:00 Total Visit Minutes 45 Visit Number 21 Evaluation Information Evaluation Date 01/19/23 PT-OP-B Current Condition Start: 01/19/23 10:48 Freq: Status: Active Protocol: Document 03/09/23 17:05 AB (Rec: 03/09/23 17:18 AB [id number]) Current Condition History of Current Condition Onset Date 2020 History of Current Condition The pt reports that in 2020 she had an accident off a ski lift which cause her to fall directly onto her shoulder. Since then she has had mobility deficits and pain, which is constant (4-5/10), but her pain increases with reaching up and behind her back (8/10). She was unable to seek treatment consistently due to personal reasons. She is currently seeking a second opinion and different approach to what her chiropractor took to see if she can make greater gains and relief. The pt also comments she has left lateral elbow pain/tenderness when she puts lotion on that arm and when she is doing things like weeding Prior Treatments and Tests Sports chiropractor for 6 months- some improvement noted Xray in 2020 revealed mod OA in right shoulder Current Functional Impairments (Reported) Functional Limitations- Work/School Retired Functional Limitations- Recreation/ Is able to perform all ADLs, Hobbies IADLs but with increased pain. PT-OP-C Subjective Start: 01/19/23 10:48 Freq: Status: Active Protocol: Document 04/18/23 08:32 NM (Rec: 04/18/23 09:04 NM [id number]) OP-PT Subjective Patient Comments Patient Comments Pt reports no change in symptoms since last visit. She is concerned about the lack of motion in her R shoulder since beginning PT, and would like a referral to an ortho. She states that since her IE she has had more instances of numnbess/tingling in her R hand, but this is not often. PT-OP-K Range of Motion Start: 01/19/23 10:48 Freq: Status: Active Protocol: Document 03/09/23 17:05 AB (Rec: 03/09/23 17:18 AB [id number]) Shoulder Goniometric Range of Motion Shoulder Right Active Testing Position Sitting Flexion 110 Abduction 100 External Rotation at 0 degrees Abduction 35 Internal Rotation Behind Back (text) T10 Comments Functional ER: T3 Pain with all motions Left Active Shoulder ROM WFL Yes Testing Position Sitting Flexion 160 Abduction 162 External Rotation at 0 degrees Abduction 60 Internal Rotation Behind Back (text) T7 Comments Functional ER: T3 PT-OP-M Strength Start: 01/19/23 10:48 Freq: Status: Active Protocol: Document 03/09/23 17:05 AB (Rec: 03/09/23 17:18 AB [id number]) Shoulder Strength Shoulder Manual Muscle Testing Right Flexion 5 Normal Extension 5 Normal Abduction (C5) 5 Normal External Rotation 5 Normal Internal Rotation 5 Normal Comments 8/10 pain with flexion Left Flexion 5 Normal Extension 5 Normal Abduction (C5) 5 Normal External Rotation 5 Normal Internal Rotation 5 Normal Elbow/Forearm Strength Elbow and Forearm Manual Muscle Testing Right Flexion (C6) 5 Normal Extension (C7) 5 Normal Comments Denies pain Left Flexion (C6) 5 Normal Extension (C7) 5 Normal Pronation 5 Normal Supination 5 Normal Comments Denies pain PT-OP-Q Treatments Start: 01/19/23 10:48 Freq: Status: Active Protocol: Document 04/18/23 08:32 NM (Rec: 04/18/23 09:04 NM [id number]) Therapeutic Exercises Supine Exercises Shldr flex AAROM Supine Exercise Name reports better stretch, relief Side bilateral Resistance 5# wrapped around dowel Reps/Minutes 2x30 Comments gravity assisted shoulder flex , long duration Standing Exercises IR strap stretch Standing Exercise Name arm behind back + ADD Side right Equipment Used towel Reps/Minutes 10x10 Shldr ER AAROM Side right Equipment Used dowel Reps/Minutes 10x10 Shldr ABD AAROM Side right Equipment Used dowel Reps/Minutes 10x10 Other Exercises Wall walks/clocks Other Exercise Name 90 deg elevation Side bilateral Resistance teal tb Reps/Minutes 2x20 ft Manual Therapy Treatment Joint Mobilizations R scapulothoracic Direction upwd rotation, dnwd rotation Grade III Body Position Sidelying Reps/Duration 1x10x2 ea Comments To assist with arm elevation R GH Jt Direction A-P, sup-inf Grade IV Body Position Supine Reps/Duration 6x30 Comments To inc ER: grade III A-P mob of ant prox humerus while move into shldr ER, towel to block elbow To inc abd: grade III S-I Manual Techniques PROM Type Fwd flex, horizontal ABD Body Position Hooklying Comments Fwd flex: PROM up to ~150 deg without pain PT-OP-T Assessment and Plan Start: 01/19/23 10:48 Freq: Status: Active Protocol: Document 04/18/23 08:32 NM (Rec: 04/18/23 09:04 NM [id number]) Physical Therapy Assessment Goals Seven Impairment Patient questionnaire Short Term Goal (STG) Pt's QuickDASH score to improve to 12% or better to show improving subjective report of symptoms for an improved QOL. MET: 04/18/23 (11%) STG Duration 4 Failure Analysis Technician Goal (LTG) Pt's QuickDASH score to improve to 2% or better to show improving subjective report of symptoms for an improved QOL. NOT MET 04/18/23 (11%) LTG Duration 8 Six Impairment Strength Short Term Goal (STG) Pt's gross UE MMT to improve to 4+/5 or better to show improving strength to improve ability to perform ADLs and IADLs. STG Duration 4 Residential Goal (LTG) Pt's gross UE MMT to improve to 5/5 or better to show improving strength to improve ability to perform functional activities and begin return to recreational activities. MET 04/18/23 LTG Duration 8 Five Impairment Right shoulder AROM deficits Short Term Goal (STG) Pt's right shoulder functional IR AROM to improve to L1 or better to show improving ROM to increase ability to perform ADLs and IADLs. MET 04/18/23 STG Duration 4 Residential Goal (LTG) Pt's right shoulder functional IR AROM to improve to T10 or better to show improving ROM to increase ability to perform ADLs and IADLs. NOT MET 04/18/23: IR AROM to T12, painful LTG Duration 8 Four Impairment Right shoulder AROM deficits Short Term Goal (STG) Pt's right shoulder functional ER AROM to improve to T1 or better to show improving ROM to increase ability to perform ADLs and IADLs. MET 04/18/23: ER AROM to T1 STG Duration 4 Residential Goal (LTG) Pt's right shoulder functional ER AROM to improve to T3 or better to show improving ROM to increase ability to perform ADLs and IADLs. NOT MET 04/18/23: ER AROM to T1 LTG Duration 8 Three Impairment Right shoulder AROM deficits Short Term Goal (STG) Pt's right shoulder ER AROM to improve to 40 degrees or better to show improving ROM to increase ability to perform ADLs and IADLs. NOT MET 04/18/23: 30 Deg ER AROM before compensation with shoulder/thoracic ext STG Duration 4 Residential Goal (LTG) Pt's right shoulder ER AROM to improve to 50 degrees or better to show improving ROM to increase ability to perform ADLs and IADLs. NOT MET 04/18/23: 30 deg ER AROm before compensation with shoulder/thoracic ext LTG Duration 8 Two Impairment Right shoulder AROM deficits Short Term Goal (STG) Pt's right shoulder ABD AROM to improve to 120 degrees or better to show improving ROM to increase ability to perform ADLs and IADLs. NOT MET 04/18/23: 102 Deg ABD AROM STG Duration 4 Residential Goal (LTG) Pt's right shoulder ABD AROM to improve to 150 degrees or better to show improving ROM to increase ability to perform ADLs and IADLs. NOT MET 04/18/23: 102 deg ABD AROM LTG Duration 8 One Impairment Right shoulder AROM deficits Short Term Goal (STG) Pt's right shoulder flexion AROM to improve to 120 degrees or better to show improving ROM to increase ability to perform ADLs and IADLs. NOT MET 04/18/23: 115 deg shoulder flex AROM STG Duration 4 Failure Analysis Technician Goal (LTG) Pt's right shoulder flexion AROM to improve to 150 degrees or better to show improving ROM to increase ability to perform ADLs and IADLs. NOT MET 04/18/23: 115 deg shoulder flex AROM LTG Duration 8 Progress Towards Goals Progress Towards Goals Slow Progress - Other Assessment Summary Assessment Pt demos improved scapular motion and strength. However, she continues to be limited by her R shoulder ROM globally. Tmt focus on improving shoulder ROM through stretching and mobilization, in addition to continued periscapular/shoulder strengthening within available range of motion. Overall, pt reports that her shoulder does not prevent her from completing ADLs/IADLs; however , she is still limited by pain and poor shoulder mobility, leading to compensations. PT and pt discussed POC extensively to determine possible options for pt. Both agree that a referral to ortho would be best for pt to determine if more aggressive tmt (e.g. EDGAR, injection) should be pursued. Pt would benefit from skilled PT to address ROM impairments for improved ADL tolerance and to return to PLOF. Physical Therapy Plan Frequency and Duration Frequency of Treatment 2x/Week Duration of treatment (weeks) 8 Plan of Care Start Date 03/09/23 Plan of Care End Date 05/04/23 Therapeutic Interventions Therapeutic Interventions Home Exercise Program,Joint Mobilizations,Manual Therapy, Neuromuscular Re-education, Patient/Caregiver Education, Self-Care/Home Management,Soft Tissue Mobilization,Taping, Therapeutic Activities, Therapeutic Exercises Modalities Cold Pack/Ice Massage,Electric Stimulation,Hot Packs Next Visit Focus/Plan Next Note Type Treatment Note Next Visit Plan Continue with capsular stretching, mobilizations, and scapular/periscapular strengthening. Cont IR stretch with ADD next time. Strengthen within available range. Discuss with pt about upcoming plan to determine if she wants a referral for ortho or to continue PT to regain mobility.
--- NOTE | 2023-04-18 08:32 | PT.OPPN ---
Current Diagnoses Other chronic pain (04/18/23) Pain in right shoulder (04/18/23) Physical Therapy Progress Note PT-OP-A Visit Information Start: 01/19/23 10:48 Freq: Status: Active Protocol: Document 04/18/23 08:32 NM (Rec: 04/20/23 07:27 NM [id number]) Out-Patient Physical Therapy Visit Information Visit Information Visit Type Progress Note Visit Note PN today Visit Start Time 08:15 Visit Stop Time 09:00 Total Visit Minutes 45 Visit Number 21 Evaluation Information Evaluation Date 01/19/23 PT-OP-B Current Condition Start: 01/19/23 10:48 Freq: Status: Active Protocol: Document 03/09/23 17:05 AB (Rec: 03/09/23 17:18 AB [id number]) Current Condition History of Current Condition Onset Date 2020 History of Current Condition The pt reports that in 2020 she had an accident off a ski lift which cause her to fall directly onto her shoulder. Since then she has had mobility deficits and pain, which is constant (4-5/10), but her pain increases with reaching up and behind her back (8/10). She was unable to seek treatment consistently due to personal reasons. She is currently seeking a second opinion and different approach to what her chiropractor took to see if she can make greater gains and relief. The pt also comments she has left lateral elbow pain/tenderness when she puts lotion on that arm and when she is doing things like weeding Prior Treatments and Tests Sports chiropractor for 6 months- some improvement noted Xray in 2020 revealed mod OA in right shoulder Current Functional Impairments (Reported) Functional Limitations- Work/School Retired Functional Limitations- Recreation/ Is able to perform all ADLs, Hobbies IADLs but with increased pain. PT-OP-C Subjective Start: 01/19/23 10:48 Freq: Status: Active Protocol: Document 04/18/23 08:32 NM (Rec: 04/20/23 07:27 NM [id number]) OP-PT Subjective Patient Comments Patient Comments Pt reports no change in symptoms since last visit. She is concerned about the lack of motion in her R shoulder since beginning PT, and would like a referral to an ortho. She states that since her IE she has had more instances of numnbess/tingling in her R hand, but this is not often. PT-OP-K Range of Motion Start: 01/19/23 10:48 Freq: Status: Active Protocol: Document 04/18/23 08:32 NM (Rec: 04/20/23 07:27 NM [id number]) Shoulder Goniometric Range of Motion Shoulder Measured in Degrees Right Active Flexion 115 Abduction 102 External Rotation at 0 degrees Abduction 10 Internal Rotation Behind Back (text) T12 Comments Functional ER T1 Pain with all motions Prior 03/09/23: flex 110 deg abd 100 deg ER 35 deg IR behind back T10 Functional ER T3 PT-OP-M Strength Start: 01/19/23 10:48 Freq: Status: Active Protocol: Document 03/09/23 17:05 AB (Rec: 03/09/23 17:18 AB [id number]) Shoulder Strength Shoulder Manual Muscle Testing Right Flexion 5 Normal Extension 5 Normal Abduction (C5) 5 Normal External Rotation 5 Normal Internal Rotation 5 Normal Comments 8/10 pain with flexion Left Flexion 5 Normal Extension 5 Normal Abduction (C5) 5 Normal External Rotation 5 Normal Internal Rotation 5 Normal Elbow/Forearm Strength Elbow and Forearm Manual Muscle Testing Right Flexion (C6) 5 Normal Extension (C7) 5 Normal Comments Denies pain Left Flexion (C6) 5 Normal Extension (C7) 5 Normal Pronation 5 Normal Supination 5 Normal Comments Denies pain PT-OP-T Assessment and Plan Start: 01/19/23 10:48 Freq: Status: Active Protocol: Document 04/18/23 08:32 NM (Rec: 04/20/23 07:27 NM [id number]) Physical Therapy Assessment Rehab Potential Rehabilitation Potential Good Evaluation Complexity Number of Personal Factors/Comorbidities 1-2 Number of Body Systems Impaired 1-2 Clinical Presentation at Evaluation Stable Impairments Impairments Functional Activities, Functional Mobility,Pain,ROM, Soft Tissue Mobility,Strength Goals Seven Impairment Patient questionnaire Short Term Goal (STG) Pt's QuickDASH score to improve to 12% or better to show improving subjective report of symptoms for an improved QOL. MET: 04/18/23 (11%) STG Duration 4 Long-Term Goal (LTG) Pt's QuickDASH score to improve to 2% or better to show improving subjective report of symptoms for an improved QOL. NOT MET 04/18/23 (11%) LTG Duration 8 Six Impairment Strength Short Term Goal (STG) Pt's gross UE MMT to improve to 4+/5 or better to show improving strength to improve ability to perform ADLs and IADLs. STG Duration 4 Coil Cleaner Goal (LTG) Pt's gross UE MMT to improve to 5/5 or better to show improving strength to improve ability to perform functional activities and begin return to recreational activities. MET 04/18/23 LTG Duration 8 Five Impairment Right shoulder AROM deficits Short Term Goal (STG) Pt's right shoulder functional IR AROM to improve to L1 or better to show improving ROM to increase ability to perform ADLs and IADLs. MET 04/18/23 STG Duration 4 Long-Term Goal (LTG) Pt's right shoulder functional IR AROM to improve to T10 or better to show improving ROM to increase ability to perform ADLs and IADLs. NOT MET 04/18/23: IR AROM to T12, painful LTG Duration 8 Four Impairment Right shoulder AROM deficits Short Term Goal (STG) Pt's right shoulder functional ER AROM to improve to T1 or better to show improving ROM to increase ability to perform ADLs and IADLs. MET 04/18/23: ER AROM to T1 STG Duration 4 Long-Term Goal (LTG) Pt's right shoulder functional ER AROM to improve to T3 or better to show improving ROM to increase ability to perform ADLs and IADLs. NOT MET 04/18/23: ER AROM to T1 LTG Duration 8 Three Impairment Right shoulder AROM deficits Short Term Goal (STG) Pt's right shoulder ER AROM to improve to 40 degrees or better to show improving ROM to increase ability to perform ADLs and IADLs. NOT MET 04/18/23: 30 Deg ER AROM before compensation with shoulder/thoracic ext STG Duration 4 Long-Term Goal (LTG) Pt's right shoulder ER AROM to improve to 50 degrees or better to show improving ROM to increase ability to perform ADLs and IADLs. NOT MET 04/18/23: 30 deg ER AROm before compensation with shoulder/thoracic ext LTG Duration 8 Two Impairment Right shoulder AROM deficits Short Term Goal (STG) Pt's right shoulder ABD AROM to improve to 120 degrees or better to show improving ROM to increase ability to perform ADLs and IADLs. NOT MET 04/18/23: 102 Deg ABD AROM STG Duration 4 Long-Term Goal (LTG) Pt's right shoulder ABD AROM to improve to 150 degrees or better to show improving ROM to increase ability to perform ADLs and IADLs. NOT MET 04/18/23: 102 deg ABD AROM LTG Duration 8 One Impairment Right shoulder AROM deficits Short Term Goal (STG) Pt's right shoulder flexion AROM to improve to 120 degrees or better to show improving ROM to increase ability to perform ADLs and IADLs. NOT MET 04/18/23: 115 deg shoulder flex AROM STG Duration 4 Coil Cleaner Goal (LTG) Pt's right shoulder flexion AROM to improve to 150 degrees or better to show improving ROM to increase ability to perform ADLs and IADLs. NOT MET 04/18/23: 115 deg shoulder flex AROM LTG Duration 8 Progress Towards Goals Progress Towards Goals Slow Progress - Other Assessment Summary Assessment Pt has completed 21 visits since Jan 2023. Since last PN , pt progress toward goals has plateaued. She has met 1 LTG and several STG. There have been minor changes in R shoulder ROM especially ER and IR. SHe continues to have shoulder mobility limitations in all directions that has not changed with significant stretching and GHJ mobilization compared to her LUE. Pt has improved in global R shoulder strength since last PN, now 5/5 for all motions within available ROM. Pt reports no reduction in shoulder pain. However, she does report that symptoms do not prevent her from performing ADLs/IADLs or from participating in recreational activities (yoga). PT and pt discussed updating POC vs letting POC end in a few weeks PT has decided that she would rather get a referral to ortho over extending POC to try other tmt options; PT in agreement. In meantime, pt would benefit from skilled PT to maximize shoulder ROM for improved ADL tolerance and to assist in return to PLOF. Physical Therapy Plan Frequency and Duration Frequency of Treatment 2x/Week Duration of treatment (weeks) 8 Plan of Care Start Date 03/09/23 Plan of Care End Date 05/04/23 Therapeutic Interventions Therapeutic Interventions Home Exercise Program,Joint Mobilizations,Manual Therapy, Neuromuscular Re-education, Patient/Caregiver Education, Self-Care/Home Management,Soft Tissue Mobilization,Taping, Therapeutic Activities, Therapeutic Exercises Modalities Cold Pack/Ice Massage,Electric Stimulation,Hot Packs Next Visit Focus/Plan Next Note Type Treatment Note Next Visit Plan Continue with capsular stretching, mobilizations, and scapular/periscapular strengthening. Cont IR stretch with ADD next time. Strengthen within available range. Discuss with pt about upcoming plan to determine if she wants a referral for ortho or to continue PT to regain mobility.
--- NOTE | 2023-04-20 17:10 | PT.OTN ---
Current Diagnoses Other chronic pain (04/20/23) Pain in right shoulder (04/20/23) Physical Therapy Treatment Note PT-OP-A Visit Information Start: 01/19/23 10:48 Freq: Status: Active Protocol: Document 04/20/23 08:27 NM (Rec: 04/20/23 09:02 NM [id number]) Out-Patient Physical Therapy Visit Information Visit Information Visit Type Treatment Note Visit Start Time 08:15 Visit Stop Time 09:00 Total Visit Minutes 45 Visit Number 22 Evaluation Information Evaluation Date 01/19/23 PT-OP-B Current Condition Start: 01/19/23 10:48 Freq: Status: Active Protocol: Document 03/09/23 17:05 AB (Rec: 03/09/23 17:18 AB [id number]) Current Condition History of Current Condition Onset Date 2020 History of Current Condition The pt reports that in 2020 she had an accident off a ski lift which cause her to fall directly onto her shoulder. Since then she has had mobility deficits and pain, which is constant (4-5/10), but her pain increases with reaching up and behind her back (8/10). She was unable to seek treatment consistently due to personal reasons. She is currently seeking a second opinion and different approach to what her chiropractor took to see if she can make greater gains and relief. The pt also comments she has left lateral elbow pain/tenderness when she puts lotion on that arm and when she is doing things like weeding Prior Treatments and Tests Sports chiropractor for 6 months- some improvement noted Xray in 2020 revealed mod OA in right shoulder Current Functional Impairments (Reported) Functional Limitations- Work/School Retired Functional Limitations- Recreation/ Is able to perform all ADLs, Hobbies IADLs but with increased pain. PT-OP-C Subjective Start: 01/19/23 10:48 Freq: Status: Active Protocol: Document 04/20/23 08:27 NM (Rec: 04/20/23 09:02 NM [id number]) OP-PT Subjective Patient Comments Patient Comments Pt reports no change in symptoms since last visit. She got a referral from ortho and canceled her remaining appointments. She will be discharging from PT today. PT-OP-K Range of Motion Start: 01/19/23 10:48 Freq: Status: Active Protocol: Document 04/18/23 08:32 NM (Rec: 04/20/23 07:27 NM [id number]) Shoulder Goniometric Range of Motion Shoulder Right Active Flexion 115 Abduction 102 External Rotation at 0 degrees Abduction 10 Internal Rotation Behind Back (text) T12 Comments Functional ER T1 Pain with all motions Prior 03/09/23: flex 110 deg abd 100 deg ER 35 deg IR behind back T10 Functional ER T3 PT-OP-M Strength Start: 01/19/23 10:48 Freq: Status: Active Protocol: Document 03/09/23 17:05 AB (Rec: 03/09/23 17:18 AB [id number]) Shoulder Strength Shoulder Manual Muscle Testing Right Flexion 5 Normal Extension 5 Normal Abduction (C5) 5 Normal External Rotation 5 Normal Internal Rotation 5 Normal Comments 8/10 pain with flexion Left Flexion 5 Normal Extension 5 Normal Abduction (C5) 5 Normal External Rotation 5 Normal Internal Rotation 5 Normal Elbow/Forearm Strength Elbow and Forearm Manual Muscle Testing Right Flexion (C6) 5 Normal Extension (C7) 5 Normal Comments Denies pain Left Flexion (C6) 5 Normal Extension (C7) 5 Normal Pronation 5 Normal Supination 5 Normal Comments Denies pain PT-OP-Q Treatments Start: 01/19/23 10:48 Freq: Status: Active Protocol: Document 04/20/23 08:27 NM (Rec: 04/20/23 09:02 NM [id number]) Therapeutic Exercises Supine Exercises Foam roller Supine Exercise Name 1. thoracic ext, 2. pec stretch Side bilateral Equipment Used foam roller Reps/Minutes 1x60 Comments for better spine mobility to assist shldr mob Prone Exercises Snow angels Side bilateral Reps/Minutes 1x10 Comments cues for scap retraction Child's pose Side bilateral Reps/Minutes 1x60 Comments for shldr flex stretch Sitting Exercises Cervical Stretching Sitting Exercise Name 1. Upper trap, 2. LS, 3. Scalene Side bilateral Reps/Minutes 2x30 ea Comments for neck tightness, HEP Standing Exercises Posterior capsule stretch Standing Exercise Name Cross arm add with ER Side right Reps/Minutes 1x60 Comments cues for palm up IR strap stretch Standing Exercise Name arm behind back + ADD Side right Equipment Used towel Reps/Minutes 1x60 Manual Therapy Treatment Taping R shldr Comments Y strip split at 25% tension for ant and post shoulder, wrapped as C to cup shoulder and provide stability/pain relief PT-OP-T Assessment and Plan Start: 01/19/23 10:48 Freq: Status: Active Protocol: Document 04/20/23 08:27 NM (Rec: 04/20/23 09:02 NM [id number]) Physical Therapy Assessment Rehab Potential Rehabilitation Potential Good Evaluation Complexity Number of Personal Factors/Comorbidities 1-2 Number of Body Systems Impaired 1-2 Clinical Presentation at Evaluation Stable Impairments Impairments Functional Activities, Functional Mobility,Pain,ROM, Soft Tissue Mobility,Strength Goals Seven Impairment Patient questionnaire Short Term Goal (STG) Pt's QuickDASH score to improve to 12% or better to show improving subjective report of symptoms for an improved QOL. MET: 04/18/23 (11%) STG Duration 4 Credit Analyst Goal (LTG) Pt's QuickDASH score to improve to 2% or better to show improving subjective report of symptoms for an improved QOL. NOT MET 04/18/23 (11%) LTG Duration 8 Six Impairment Strength Short Term Goal (STG) Pt's gross UE MMT to improve to 4+/5 or better to show improving strength to improve ability to perform ADLs and IADLs. STG Duration 4 Credit Analyst Goal (LTG) Pt's gross UE MMT to improve to 5/5 or better to show improving strength to improve ability to perform functional activities and begin return to recreational activities. MET 04/18/23 LTG Duration 8 Five Impairment Right shoulder AROM deficits Short Term Goal (STG) Pt's right shoulder functional IR AROM to improve to L1 or better to show improving ROM to increase ability to perform ADLs and IADLs. MET 04/18/23 STG Duration 4 Credit Analyst Goal (LTG) Pt's right shoulder functional IR AROM to improve to T10 or better to show improving ROM to increase ability to perform ADLs and IADLs. NOT MET 04/18/23: IR AROM to T12, painful LTG Duration 8 Four Impairment Right shoulder AROM deficits Short Term Goal (STG) Pt's right shoulder functional ER AROM to improve to T1 or better to show improving ROM to increase ability to perform ADLs and IADLs. MET 04/18/23: ER AROM to T1 STG Duration 4 Credit Analyst Goal (LTG) Pt's right shoulder functional ER AROM to improve to T3 or better to show improving ROM to increase ability to perform ADLs and IADLs. NOT MET 04/18/23: ER AROM to T1 LTG Duration 8 Three Impairment Right shoulder AROM deficits Short Term Goal (STG) Pt's right shoulder ER AROM to improve to 40 degrees or better to show improving ROM to increase ability to perform ADLs and IADLs. NOT MET 04/18/23: 30 Deg ER AROM before compensation with shoulder/thoracic ext STG Duration 4 Credit Analyst Goal (LTG) Pt's right shoulder ER AROM to improve to 50 degrees or better to show improving ROM to increase ability to perform ADLs and IADLs. NOT MET 04/18/23: 30 deg ER AROm before compensation with shoulder/thoracic ext LTG Duration 8 Two Impairment Right shoulder AROM deficits Short Term Goal (STG) Pt's right shoulder ABD AROM to improve to 120 degrees or better to show improving ROM to increase ability to perform ADLs and IADLs. NOT MET 04/18/23: 102 Deg ABD AROM STG Duration 4 Credit Analyst Goal (LTG) Pt's right shoulder ABD AROM to improve to 150 degrees or better to show improving ROM to increase ability to perform ADLs and IADLs. NOT MET 04/18/23: 102 deg ABD AROM LTG Duration 8 One Impairment Right shoulder AROM deficits Short Term Goal (STG) Pt's right shoulder flexion AROM to improve to 120 degrees or better to show improving ROM to increase ability to perform ADLs and IADLs. NOT MET 04/18/23: 115 deg shoulder flex AROM STG Duration 4 Credit Analyst Goal (LTG) Pt's right shoulder flexion AROM to improve to 150 degrees or better to show improving ROM to increase ability to perform ADLs and IADLs. NOT MET 04/18/23: 115 deg shoulder flex AROM LTG Duration 8 Progress Towards Goals Progress Towards Goals Slow Progress - Other Assessment Summary Assessment Pt tolerates tmt well. Tmt focus today on creating HEP to address any remaining impairments in cervical/ thoracic spine and shoulder. Pt demos tightness in upper traps, levator scapulae, and anterior/middle scalenes; reports relief after stretching. Pt's shoulder kinesiotaped for more stability and pain relief in Y strip at anterior and posterior shoulder. Pt is discharging from PT today at her request because she has an ortho referral to determine if further treatment is warranted. Physical Therapy Plan Frequency and Duration Frequency of Treatment 2x/Week Duration of treatment (weeks) 8 Plan of Care Start Date 03/09/23 Plan of Care End Date 05/04/23 Therapeutic Interventions Therapeutic Interventions Home Exercise Program,Joint Mobilizations,Manual Therapy, Neuromuscular Re-education, Patient/Caregiver Education, Self-Care/Home Management,Soft Tissue Mobilization,Taping, Therapeutic Activities, Therapeutic Exercises Modalities Cold Pack/Ice Massage,Electric Stimulation,Hot Packs Discharge Physical Therapy Discharge Reasons Patient Request Discharge Comments D/c today. Pt has met 1 LTG and several STGs. Her progress has largely plateaued since PN in February. She will be following up with an ortho MD Next Visit Focus/Plan Next Note Type Discharge Summary
--- NOTE | 2023-04-21 07:53 | PT.OPDS ---
Current Diagnoses Other chronic pain (04/20/23) Pain in right shoulder (04/20/23) Visit Care Team Role Provider Type Sumanth Ryan MD Attending Provider Physician Family Provider Primary Care Provider Referring Provider Specialty: Family Practice Address: [address] [place] [address], [facility] Email: [email or web address] Visit Number Visit Number 22 Discharge Summary PT-OP-B Current Condition Start: 01/19/23 10:48 Freq: Status: Active Protocol: Document 03/09/23 17:05 AB (Rec: 03/09/23 17:18 AB [id number]) Current Condition History of Current Condition Onset Date 2020 History of Current Condition The pt reports that in 2020 she had an accident off a ski lift which cause her to fall directly onto her shoulder. Since then she has had mobility deficits and pain, which is constant (4-5/10), but her pain increases with reaching up and behind her back (8/10). She was unable to seek treatment consistently due to personal reasons. She is currently seeking a second opinion and different approach to what her chiropractor took to see if she can make greater gains and relief. The pt also comments she has left lateral elbow pain/tenderness when she puts lotion on that arm and when she is doing things like weeding Prior Treatments and Tests Sports chiropractor for 6 months- some improvement noted Xray in 2020 revealed mod OA in right shoulder Current Functional Impairments (Reported) Functional Limitations- Work/School Retired Functional Limitations- Recreation/ Is able to perform all ADLs, Hobbies IADLs but with increased pain. PT-OP-C Subjective Start: 01/19/23 10:48 Freq: Status: Active Protocol: Document 04/20/23 08:27 NM (Rec: 04/20/23 17:20 NM [id number]) OP-PT Subjective Patient Comments Patient Comments Pt reports no change in symptoms since last visit. She got a referral from ortho and canceled her remaining appointments. She will be discharging from PT today. PT-OP-K Range of Motion Start: 01/19/23 10:48 Freq: Status: Active Protocol: Document 04/18/23 08:32 NM (Rec: 04/20/23 07:27 NM [id number]) Shoulder Goniometric Range of Motion Shoulder Right Active Flexion 115 Abduction 102 External Rotation at 0 degrees Abduction 10 Internal Rotation Behind Back (text) T12 Comments Functional ER T1 Pain with all motions Prior 03/09/23: flex 110 deg abd 100 deg ER 35 deg IR behind back T10 Functional ER T3 PT-OP-M Strength Start: 01/19/23 10:48 Freq: Status: Active Protocol: Document 03/09/23 17:05 AB (Rec: 03/09/23 17:18 AB [id number]) Shoulder Strength Shoulder Manual Muscle Testing Right Flexion 5 Normal Extension 5 Normal Abduction (C5) 5 Normal External Rotation 5 Normal Internal Rotation 5 Normal Comments 8/10 pain with flexion Left Flexion 5 Normal Extension 5 Normal Abduction (C5) 5 Normal External Rotation 5 Normal Internal Rotation 5 Normal Elbow/Forearm Strength Elbow and Forearm Manual Muscle Testing Right Flexion (C6) 5 Normal Extension (C7) 5 Normal Comments Denies pain Left Flexion (C6) 5 Normal Extension (C7) 5 Normal Pronation 5 Normal Supination 5 Normal Comments Denies pain PT-OP-T Assessment and Plan Start: 01/19/23 10:48 Freq: Status: Active Protocol: Document 04/20/23 08:27 NM (Rec: 04/20/23 17:20 NM [id number]) Physical Therapy Assessment Rehab Potential Rehabilitation Potential Good Evaluation Complexity Number of Personal Factors/Comorbidities 1-2 Number of Body Systems Impaired 1-2 Clinical Presentation at Evaluation Stable Impairments Impairments Functional Activities, Functional Mobility,Pain,ROM, Soft Tissue Mobility,Strength Goals Seven Impairment Patient questionnaire Short Term Goal (STG) Pt's QuickDASH score to improve to 12% or better to show improving subjective report of symptoms for an improved QOL. MET: 04/18/23 (11%) STG Duration 4 Tailor Fitter Goal (LTG) Pt's QuickDASH score to improve to 2% or better to show improving subjective report of symptoms for an improved QOL. NOT MET 04/18/23 (11%) LTG Duration 8 Six Impairment Strength Short Term Goal (STG) Pt's gross UE MMT to improve to 4+/5 or better to show improving strength to improve ability to perform ADLs and IADLs. STG Duration 4 Chcf Goal (LTG) Pt's gross UE MMT to improve to 5/5 or better to show improving strength to improve ability to perform functional activities and begin return to recreational activities. MET 04/18/23 LTG Duration 8 Five Impairment Right shoulder AROM deficits Short Term Goal (STG) Pt's right shoulder functional IR AROM to improve to L1 or better to show improving ROM to increase ability to perform ADLs and IADLs. MET 04/18/23 STG Duration 4 Tailor Fitter Goal (LTG) Pt's right shoulder functional IR AROM to improve to T10 or better to show improving ROM to increase ability to perform ADLs and IADLs. NOT MET 04/18/23: IR AROM to T12, painful LTG Duration 8 Four Impairment Right shoulder AROM deficits Short Term Goal (STG) Pt's right shoulder functional ER AROM to improve to T1 or better to show improving ROM to increase ability to perform ADLs and IADLs. MET 04/18/23: ER AROM to T1 STG Duration 4 Tailor Fitter Goal (LTG) Pt's right shoulder functional ER AROM to improve to T3 or better to show improving ROM to increase ability to perform ADLs and IADLs. NOT MET 04/18/23: ER AROM to T1 LTG Duration 8 Three Impairment Right shoulder AROM deficits Short Term Goal (STG) Pt's right shoulder ER AROM to improve to 40 degrees or better to show improving ROM to increase ability to perform ADLs and IADLs. NOT MET 04/18/23: 30 Deg ER AROM before compensation with shoulder/thoracic ext STG Duration 4 Tailor Fitter Goal (LTG) Pt's right shoulder ER AROM to improve to 50 degrees or better to show improving ROM to increase ability to perform ADLs and IADLs. NOT MET 04/18/23: 30 deg ER AROm before compensation with shoulder/thoracic ext LTG Duration 8 Two Impairment Right shoulder AROM deficits Short Term Goal (STG) Pt's right shoulder ABD AROM to improve to 120 degrees or better to show improving ROM to increase ability to perform ADLs and IADLs. NOT MET 04/18/23: 102 Deg ABD AROM STG Duration 4 Chcf Goal (LTG) Pt's right shoulder ABD AROM to improve to 150 degrees or better to show improving ROM to increase ability to perform ADLs and IADLs. NOT MET 04/18/23: 102 deg ABD AROM LTG Duration 8 One Impairment Right shoulder AROM deficits Short Term Goal (STG) Pt's right shoulder flexion AROM to improve to 120 degrees or better to show improving ROM to increase ability to perform ADLs and IADLs. NOT MET 04/18/23: 115 deg shoulder flex AROM STG Duration 4 Chcf Goal (LTG) Pt's right shoulder flexion AROM to improve to 150 degrees or better to show improving ROM to increase ability to perform ADLs and IADLs. NOT MET 04/18/23: 115 deg shoulder flex AROM LTG Duration 8 Progress Towards Goals Progress Towards Goals Slow Progress - Other Assessment Summary Assessment Pt has been attending PT since 01/2023 to address limitations and pain secondary to adhesive capsulitis. Since IE, pt has had small improvements in R shoulder ROM and strength. Overall, her functional R shoulder ER and IR has improved the most. However, her progress regarding her shoulder ROM has plateaued since PN in February . She has met 1 LTG and several STGs. Pt reports that she is able to participate in all ADLs and recreational activities without limitation. She continues to have chronic R shoulder pain for several years that has been largely unchanged since beginning PT. She has reported relief with kinesiotaping, but this relief is short term. She also does report that she thinks she has improved in R shoulder ROM and strength since her IE in January, and she has a better understanding of how she can participate in her recreational activities without fear or increasing her pain symptoms. Pt is discharging from PT today at her request because she finally has a referral to ortho to determine if further treatment is warranted to manage her shoulder pathology. PT discussed possibility of continuing PT while waiting for her ortho appt, but is in agreement with discharge at pt request and issued HEP with cervical and thoracic spine stretches to address pt- reported stiffness. Pt informed to seek a new referral from her PCP for future PT related to this condition if needed. Physical Therapy Plan Frequency and Duration Frequency of Treatment 2x/Week Duration of treatment (weeks) 8 Plan of Care Start Date 03/09/23 Plan of Care End Date 05/04/23 Therapeutic Interventions Therapeutic Interventions Home Exercise Program,Joint Mobilizations,Manual Therapy, Neuromuscular Re-education, Patient/Caregiver Education, Self-Care/Home Management,Soft Tissue Mobilization,Taping, Therapeutic Activities, Therapeutic Exercises Modalities Cold Pack/Ice Massage,Electric Stimulation,Hot Packs Discharge Physical Therapy Discharge Reasons Patient Request Discharge Comments D/c today. Pt has met 1 LTG and several STGs. Her progress has largely plateaued since PN in February. She will be following up with an ortho MD. HEP handout provided: upper trap stretch, levator scap stretch, anterior/middle scalene stretch, thoracic ext on foam roller, and posterior capsule stretch with shoulder ER Next Visit Focus/Plan Next Note Type Discharge Summary
== END 2023-04-25 14:14 | disposition home or self-care (01) ==
LOC: PHYS 08:15
PROVIDERS: Family Provider Family Medicine; PCP Family Medicine; Referring Provider Family Medicine; Visit Provider Family Medicine
DX: G89.29 Other chronic pain (principal); M25.511 Pain in right shoulder
CPT/HCPCS: 97110; 97140; 97161; 97535

== ENCOUNTER → 2023-10-06 13:52 | Outpatient (CLI) | payer OTHER, SELFPAY ==
--- NOTE | 2023-10-06 13:52 | DI.MG.S_ITS ---
BILATERAL DIGITAL SCREENING MAMMOGRAM 3D/2D WITH CAD: 10/06/2023 CLINICAL: Routine screening. Comparison is made to exams dated: 09/28/2022 mammogram, 01/22/2021 mammogram - [facility], and 04/18/2019 mammogram - outside facility. Both breasts are heterogeneously dense, which may obscure small masses (category c / 51-75% glandular tissue). Current study was also evaluated with a Computer Aided Detection (CAD) system. No significant masses, calcifications, or other findings are seen in either breast. There has been no significant interval change. IMPRESSION: NEGATIVE There is no mammographic evidence of malignancy. A 1 year screening mammogram is recommended. Based on the Tyrer Cuzick model (a risk assessment model) the patient's lifetime risk is 8.9% and her 10 year risk is 4.1%. According to the ACR, ACS, and NCCN guidelines, an annual breast MRI exam along with mammogram is recommended if the patient's lifetime risk is 20% or greater. This exam was interpreted at Station ID: [id number]. NOTE: For mammograms, a report in lay terms will be sent to the patient. Approximately 15% of breast malignancies will not be visualized mammographically. In the management of a palpable breast mass, a negative mammogram must not discourage biopsy of a clinically suspicious lesion. Electronically Signed By: Nicole Marin M.D., Ph.D. teresa/pat:10/07/2023 01:41:08 letter sent: Normal Exam ACR BI-RADS Category 1: Negative [id number]
== END ==
LOC: MAMMO 13:52
PROVIDERS: Family Provider Family Medicine; PCP Family Medicine; Referring Provider Family Medicine; Visit Provider Family Medicine
DX: Z12.31 Encounter for screening mammogram for malignant neoplasm of breast (principal); R92.333 Mammographic heterogeneous density, bilateral breasts
CPT/HCPCS: 77063; 77067

== ENCOUNTER → 2024-02-09 14:58 | Outpatient (CLI) | payer OTHER, SELFPAY ==
[2024-02-09 16:49] LABS: Add Manual Diff / Slide Review NO; Basophils Absolute Auto 0 /uL (0-100); Basophils Percent Auto 0.5 % (0-2); Eosinophils Absolute Auto 0 /uL (0-450); Eosinophils Percent Auto 0.3 % (2-4); Hematocrit 42.7 % (36-46); Hemoglobin 14.5 g/dL (12.0-16.0); Lymphocytes Absolute Auto 1600 /uL (1100-4500); Lymphocytes Percent Auto 22.9 % (25-40); Mean Corpuscular Hemoglobin 30.2 PG (26-34); Mean Corpuscular Volume 88.9 fL (80-100); Monocytes Absolute Auto 400 /uL (0-900); Monocytes Percent Auto 6.2 % (3-14); Neutrophils Absolute Auto 4800 /uL (1500-7000); Neutrophils Percent Auto 70.1 % (50-75); Platelet Count 272 X10^3/uL (150-400); White Blood Cell Count 6.8 X10^3/uL (4.5-11.0)
[2024-02-09 17:03] LABS: Hemoglobin A1C% w Est Avg Glu 5.2 % (4.0-6.0)
[2024-02-09 17:17] LABS: Alanine Aminotransferase 23 IU/L (<35); Albumin 4.6 g/dL (3.5-5.0); Albumin Globulin Ratio 1.8 (1.0-2.8); Alkaline Phosphatase 65 U/L (38-126); Aspartate Aminotransferase 29 IU/L (14-36); BUN Creatinine Ratio 15.5 (6-22); Bilirubin Total 0.9 mg/dL (0.2-1.3); Blood Urea Nitrogen 13 mg/dL (7-17); Calcium 9.9 mg/dL (8.4-10.2); Carbon Dioxide 25 mmol/L (22-32); Chloride 104 mmol/L (98-107); Cholesterol 220 mg/dL (140-199); Estimated Glomerular Filt Rate > 60 mL/min (>60); Globulin 2.6 g/dL (1.7-4.1); Glucose 76 mg/dL (80-110); HDL Cholesterol 88 mg/dL (40-60); HEMOLYSIS < 15 (0-50); LDL Cholesterol Calculated 122 mg/dL (<100); Potassium 4.2 mmol/L (3.4-5.1); Sodium 139 mmol/L (137-145); Total Protein 7.2 g/dL (6.3-8.2); Triglycerides 48 mg/dL (35-150)
== END ==
PROVIDERS: Family Provider Family Medicine; PCP Family Medicine; Referring Provider Family Medicine; Visit Provider Family Medicine
DX: Z00.00 Encounter for general adult medical examination without abnormal findings (principal); Z13.6 Encounter for screening for cardiovascular disorders; Z13.1 Encounter for screening for diabetes mellitus
CPT/HCPCS: 36415; 80053; 80061; 83036; 85025

== ENCOUNTER → 2024-11-29 14:37 | Outpatient (CLI) | payer OTHER, SELFPAY ==
--- NOTE | 2024-11-29 14:39 | DI.MG.S_ITS ---
MM screening mammo BI: 11/29/2024. BI-RADS: 1 CLINICAL: 64-year old female for bilateral screening mammogram. Tyrer-Cuzick lifetime risk of 11.2%. No personal or first-degree family history of breast cancer. PRIOR EXAMS 10/06/2023, 09/28/2022, 01/22/2021. MAMMOGRAPHY TECHNIQUE: 2D and 3D (tomosynthesis) digital mammographic views obtained, with additional images as needed for full coverage. Current study was also evaluated with a Computer Aided Detection (CAD) system. DENSITY D. The breasts are extremely dense, which lowers the sensitivity of mammography. MAMMOGRAPHY FINDINGS Bilateral: No suspicious mass, asymmetry, microcalcification, or other abnormality seen. No significant change from comparison. IMPRESSION: * No evidence of malignancy. RECOMMENDATIONS Bilateral * Annual screening mammography. OVERALL ASSESSMENT CATEGORY BI-RADS-1: Negative. The [employer] recommends annual screening mammography beginning at age 40 for women with average risk of breast cancer. ELECTRONICALLY SIGNED: Chelsea Snell M.D. on 11/29/2024 at 10:29:48 PM PT Interpreting Station ID: [id number]
--- NOTE | 2024-11-29 14:39 | DI.RAD.S_ITS ---
PROCEDURE: XR DEXA AXIAL SKELETON INDICATIONS: post menopausal COMPARISON: None. FINDINGS: Lumbar Spine: Bone mineral density 0.880 g/cm2, T score -1.6. Left Femoral Neck: Bone mineral density 0.689 g/cm2, T score -1.4. Left Hip: Bone mineral density 0.818 g/cm2, T score -1.0. Fracture Risk Calculation (when applicable): 10-year fracture risk of a major osteoporotic fracture 8.3 percent and of a hip fracture 0.9 percent. (T score greater or equal to -1.0 to: NORMAL) (T score from -1.1 to -2.4: OSTEOPENIA) (T score less than or equal to -2.5: OSTEOPOROSIS) IMPRESSION: Osteopenia with increased 10 year fracture risk. Follow-up guidelines as follows: Osteoporosis: Consider a repeat DEXA and Vertebral Fracture Assessment (VFA) exam in 2 years or sooner if medically necessary, to reassess this patient's status. Osteopenia: Consider a repeat DEXA in 2-3 years to reassess this patient's status, or if there is a new clinical indication. Normal: Consider a repeat DEXA in 5 years or sooner, or if there is a new clinical indication. All treatment decisions require clinical judgment and consideration of individual patient factors, including patient preferences, comorbidities, previous drug use, risk factors not captured in the FRAX model (e.g., frailty, falls, vitamin D deficiency, increased bone turnover, interval significant decline in bone density ) and possible under- or over-estimation of fracture risk by FRAX. In addition, the NOF Guide recommends that FDA-approved medical therapies be considered in postmenopausal women and men age >= 50 years with a: * Hip or vertebral (clinical or morphometric) fracture * T-score of <=-2.5 at the spine or hip * Ten-year fracture probability by FRAX of >= 3% for hip fracture or >=20% for major osteoporotic fracture. Dictated by: Wally Simons M.D. on 11/29/2024 at 17:02 Approved by: Wally Simons M.D. on 11/29/2024 at 17:03
== END ==
PROVIDERS: Family Provider Family Medicine; PCP Family Medicine; Referring Provider Family Medicine; Visit Provider Family Medicine
DX: Z12.31 Encounter for screening mammogram for malignant neoplasm of breast (principal); R92.343 Mammographic extreme density, bilateral breasts; M85.89 Other specified disorders of bone density and structure, multiple sites; N95.1 Menopausal and female climacteric states
CPT/HCPCS: 77063; 77067; 77080

== ENCOUNTER → 2025-03-16 07:58 | Outpatient (CLI) | payer OTHER, SELFPAY ==
[2025-03-16 09:18] LABS: Add Manual Diff / Slide Review NO; Hematocrit 43.1 % (36-46); Hemoglobin 14.7 g/dL (12.0-16.0); Lymphocytes Absolute Auto 1200 /uL (1100-4500); Mean Corpuscular HGB Conc 34.1 % (30-36); Mean Corpuscular Hemoglobin 30.2 PG (26-34); Mean Corpuscular Volume 88.4 fL (80-100); Platelet Count 245 X10^3/uL (150-400)
[2025-03-16 09:46] LABS: Alanine Aminotransferase 23 IU/L (<35); Albumin 4.6 g/dL (3.5-5.0); Albumin Globulin Ratio 1.7 (1.0-2.8); Alkaline Phosphatase 56 U/L (38-126); Blood Urea Nitrogen 21 mg/dL (7-17); Calcium 9.8 mg/dL (8.4-10.2); Carbon Dioxide 27 mmol/L (22-32); Chloride 101 mmol/L (98-107); Cholesterol 216 mg/dL (140-199); Estimated Glomerular Filt Rate > 60 mL/min (>60); Globulin 2.7 g/dL (1.7-4.1); Glucose 81 mg/dL (70-99); HDL Cholesterol 79 mg/dL (40-60); HEMOLYSIS < 15 (0-50); Potassium 4.5 mmol/L (3.4-5.1); Sodium 138 mmol/L (137-145); Total Protein 7.3 g/dL (6.3-8.2); Triglycerides 59 mg/dL (35-150)
[2025-03-16 10:14] LABS: TSH w/ Reflex to FT4 1.58 uIU/mL (0.47-4.68)
== END ==
PROVIDERS: PCP Family Medicine; Referring Provider Family Medicine; Visit Provider Family Medicine
DX: Z00.00 Encounter for general adult medical examination without abnormal findings (principal); E78.2 Mixed hyperlipidemia; N95.1 Menopausal and female climacteric states; M19.011 Primary osteoarthritis, right shoulder; M25.511 Pain in right shoulder; G89.29 Other chronic pain
CPT/HCPCS: 36415; 80053; 80061; 82172; 84443; 85025